=== PATIENT | male | born 1975 | race Caucasian/White ===

== ENCOUNTER 2016-11-13 11:23 | Emergency (ER) | payer OTHER ==
[~2016-11-13] VITALS: Ht 177.8 cm; Wt 95.0 kg
[~2016-11-13 11:23] MED LIST: ATV/1 PO; BENZ-89 PO; BSP/10 PO; CYM/30 PO; FRCT/ PO; GABA-113 PO; PALI1TAB3 PO; PROC1TAB5 PO; TIZA6CAP PO; TOPI200T14 PO; WARF5TAB90 PO
[2016-11-13 11:30] VITALS: TEMP 36.7; Ht 177.8 cm; Wt 95.0 kg
[2016-11-13] MEDS ORDERED: MoRPHine SULFATE 4 MG/ML 1 ML CARP\\VIAL IV STA (11:46)
[2016-11-13 12:22] LABS: BASO % 0.5 %; BASO ABS # 0.03 K/uL (0-0.2); COMPLETE YES; EOS % 2.8 %; HEMATOCRIT 41.2 % (42-52); IG% 0.3 %; LYMPH % 32.2 %; LYMPH ABS # 1.95 K/uL (1.2-3.4); MEAN CORPUSCULAR HEMOGLOBIN 30.1 pg (25-34); MEAN CORPUSCULAR HGB CONC 34.2 g/dl (32-36); MEAN PLATELET VOLUME 9.2 fL (7.4-10.4); MONO % 13.1 %; NEUT % 51.1 %; PLATELET COUNT 256 K/uL (130-400); RED BLOOD COUNT 4.68 M/uL (4.7-6.1); URINE APPEARANCE CLEAR (CLEAR); URINE BILIRUBIN NEG (NEG); URINE COLOR YELLOW; URINE NITRITE NEG (NEG); UROBILINOGEN NEG (NEG); WHITE BLOOD COUNT 6.05 K/uL (4.8-10.8); ZZUR CULT IF INDIC CLEAN CATCH NO
[2016-11-13 12:27] LABS: INR 3.2 (0.9-1.1); PROTHROMBIN TIME (PATIENT) 36.3 SECONDS (9.0-12.0)
[2016-11-13 12:37] LABS: MANUAL MICROSCOPIC REQUIRED? NO; REVIEW REQ? YES
[2016-11-13 12:45] LABS: ALT/SGPT 23 U/L (12-78); AST/SGOT 35 U/L (15-37); BLOOD UREA NITROGEN 12 mg/dl (7-18); BUN/CREATININE RATIO 10.6 (10-20); CARBON DIOXIDE 24 mmol/L (21-32); CHLORIDE 110 mmol/L (98-107); GLUCOSE 97 mg/dl (70-99); POTASSIUM 3.9 mmol/L (3.5-5.1); SODIUM 143 mmol/L (136-145)
[2016-11-13 12:48] LABS: ALKALINE PHOSPHATASE 67 U/L (45-117)
[2016-11-13 12:51] LABS: URINE EPITHELIAL CELL AUTO 0-5 /lpf (0-5)
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
[2016-11-13] MEDS ORDERED: ACETAMINOPHEN 500 MG TAB PO ONE (14:21)
[2016-11-13 14:25] VITALS: BP 127/84; PULSE 65; O2SAT 99
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
[2017-06-16] MEDS ORDERED: GABA600T PO (14:51)
[2017-06-16] MEDS ORDERED: TIZA4CAP PO (14:51)
[2017-06-16] MEDS ORDERED: ZOLP5TAB PO (14:51)
[2017-06-16] MEDS ORDERED: PALI6TAB PO (14:51)
[2017-06-16] MEDS ORDERED: MAGN400T6 PO (14:51)
[2017-06-16] MEDS ORDERED: B-COTAB53 PO (14:51)
[2017-06-27] MEDS ORDERED: ENOX80IN SQ (13:43)
== END 2016-11-13 14:34 | disposition home or self-care (01) ==
LOC: EDBD 11:23 → C.EDC 11:24
DX: S13.9XXA Sprain of joints and ligaments of unspecified parts of neck, initial encounter (principal); M54.5 Low back pain; V43.52XA Car driver injured in collision with other type car in traffic accident, initial encounter; Z79.01 Long term (current) use of anticoagulants; Z79.899 Other long term (current) drug therapy; F17.210 Nicotine dependence, cigarettes, uncomplicated

== ENCOUNTER 2016-11-16 09:40 | Emergency (ER) | payer OTHER ==
[~2016-11-16] VITALS: Ht 177.8 cm; Wt 96.7 kg
[~2016-11-16 09:40] MED LIST changes: -BENZ-89 PO; +CGN1 PO
[2016-11-16 09:44] VITALS: Ht 177.8 cm; Wt 96.7 kg
[2016-11-16] MEDS ORDERED: PRED20TA PO (10:23)
[2016-11-16] MEDS ORDERED: HYDR-5688 PO (10:23)
[2016-11-16 10:34] VITALS: BP 138/73; PULSE 71; TEMP 36.9; O2SAT 98
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
[2017-06-16] MEDS ORDERED: TIZA4CAP PO (14:51)
[2017-06-16] MEDS ORDERED: ZOLP5TAB PO (14:51)
[2017-06-16] MEDS ORDERED: B-COTAB53 PO (14:51)
[2017-06-16] MEDS ORDERED: MAGN400T6 PO (14:51)
[2017-06-16] MEDS ORDERED: GABA600T PO (14:51)
[2017-06-16] MEDS ORDERED: PALI6TAB PO (14:51)
[2017-06-27] MEDS ORDERED: ENOX80IN SQ (13:43)
== END 2016-11-16 10:35 | disposition home or self-care (01) ==
LOC: C.EDB 09:41 → C.EDA 10:35
DX: M54.2 Cervicalgia (principal); V49.40XA Driver injured in collision with unspecified motor vehicles in traffic accident, initial encounter; Y93.89 Activity, other specified; Y99.8 Other external cause status; Y92.488 Other paved roadways as the place of occurrence of the external cause; F17.200 Nicotine dependence, unspecified, uncomplicated; Z95.2 Presence of prosthetic heart valve; Z79.01 Long term (current) use of anticoagulants; Z79.52 Long term (current) use of systemic steroids

== ENCOUNTER 2017-05-13 00:18 | Emergency (ER) | payer OTHER ==
[~2017-05-13] VITALS: Ht 177.8 cm; Wt 99.4 kg
[~2017-05-13 00:18] MED LIST changes: +HYDR-5688 PO; +PRED20TA PO
[2017-05-13 00:24] VITALS: TEMP 36.7; Ht 177.8 cm; Wt 99.4 kg
[2017-05-13] MEDS ORDERED: LIDO/EPINEPHRINE/SOD BICARB 20 ML VIAL INFIL ONE (00:45)
[2017-05-13 02:42] VITALS: BP 129/87; PULSE 55; O2SAT 99
--- NOTE | 2017-05-14 02:01 | EMERGENCY ROOM VISIT NOTE ---
History First contact with patient: 00:28 Chief Complaint: LACERATION/CUT (SUT/DERMABOND) Stated Complaint: CUT TONGUE ON BROKEN TOOTH,WON'T STOP BLEEDING Nursing Triage Summary: Broke right upper molar today, stuck tongue into socket and cut tongue. On coumadin, cannot control bleeding. Happened at 1500. Reports dizziness. History of Present Illness The patient is a 42 year old male who presents to the Emergency Room with complaints of bleeding from his tongue began approximately 8 hours ago. The patient states that he has a broken tooth, and cut the underside of his tongue on one of the fragments. The patient is on Coumadin for his heart. He states his last INR was yesterday and was 2.8. The patient has been applying cold compresses to his tongue, but this has not significantly improved his symptoms. The patient does not have other complaints. He rates his discomfort a 1/10. Review of Systems More than 10 systems were reviewed and otherwise negative with the exception of history of present illness. Past Medical/Surgical History Medical Problems: (1) Aortic aneurysm Surgical Problems: (1) H/O aortic aneurysm repair (2) Heart valve replaced Family History Patient reports no known family medical history. Social History Smoking Status: Current Every Day Smoker Alcohol Use: occasionally Drug Use: none Marital Status: in relationship Housing Status: lives with family Occupation Status: unemployed Current/Historical Medications Scheduled Acetamin/Butalbital/Caffeine (Fioricet), 1 TAB PO UD Benztropine Mesylate (Cogentin), 1 MG PO BID Buspirone HCl (Buspirone HCl), 10 MG PO TID Duloxetine Hcl (Cymbalta), 30 MG PO BID Gabapentin (Neurontin), 600 MG PO QID Lorazepam (Ativan), 1 MG PO TID Paliperidone (Paliperidone ER), 12 MG PO DAILY Prochlorperazine Maleate (Compazine), 10 MG PO Q4H Tizanidine (Zanaflex), 6 MG PO BID Topiramate (Topamax), 200 MG PO BID Warfarin Sodium (Coumadin), 15 MG PO DAILY Allergies Coded Allergies: NSAIDs (Verified Allergy, Unknown, UNNKNOWN, 05/13/17) Propranolol (Verified Adverse Reaction, Intermediate, Bradycardia, 05/13/17) Physical Exam Vital Signs Date Time Temp Pulse Resp B/P (MAP) Pulse Ox O2 Delivery O2 Flow Rate FiO2 05/13/17 02:42 55 18 129/87 99 05/13/17 01:37 54 18 134/85 98 05/13/17 00:24 36.7 62 18 154/92 99 Room Air Pain Rating (0-10): 7.0 Physical Exam VITALS: Vitals are noted on the nurse's note and reviewed by myself. Vital signs stable. GENERAL: Well-developed, well-nourished, white male, who is in no acute distress and resting comfortably. Patient is cooperative with the examination. MOUTH: Mucous membranes moist. On the right underside of the tongue is a very small 1 mm laceration. Unfortunately this does appear to cut through a very small vein causing slow and persistent bleeding. Medical Decision & Procedures ED Course Physical exam and history were performed. Nursing notes and EMR were reviewed. Patient appears to have a very small laceration to his tongue that is bleeding secondary to his anticoagulation use. I discussed options of care with the patient, who has not had relief with pressure dressings at home. I elected to use 1% buffered lidocaine with epinephrine, and injected the area of the small cut in a sterile fashion. Upon doing this the patient was treated with a cool compress. On reevaluation this intervention did resolve the patient's bleeding without a need for suture repair. The patient was asked to hold his Coumadin tonight and restart it tomorrow. He was otherwise asked to follow with his primary care physician with any ongoing or persistent symptoms. He rated his discomfort a 0/10 at the time of departure. The chart was completed utilizing [employer] Speech Voice Recognition Software. Grammatical errors, random word insertions, pronoun errors, and incomplete sentences are an occasional consequence of this system due to software limitations, ambient noise, and hardware issues. Any formal questions or concerns about the content, text, or information contained within the body of this dictation should be directly addressed to the provider for clarification. . Medical Decision Differential diagnosis includes, but is not limited to: Laceration, abrasion, anticoagulation use, and others Impression Primary Impression: Laceration of tongue Departure Information Dispostion Home / Self-Care Condition GOOD Forms HOME CARE DOCUMENTATION FORM, IMPORTANT VISIT INFORMATION Patient Instructions My [facility] Additional Instructions You were seen and evaluated today on an emergency basis only. This is not a substitute for, or an effort to provide, complete comprehensive medical care. It is not possible to recognize and treat all injuries or illnesses in a single emergency department visit. For this reason it is recommended that you followup with your primary care physician for any persisting symptoms. You are welcome to return to the emergency department anytime with new, worsening, or concerning symptoms.
[2017-06-16] MEDS ORDERED: TIZA4CAP PO (14:51)
[2017-06-16] MEDS ORDERED: PALI6TAB PO (14:51)
[2017-06-16] MEDS ORDERED: MAGN400T6 PO (14:51)
[2017-06-16] MEDS ORDERED: GABA600T PO (14:51)
[2017-06-16] MEDS ORDERED: ZOLP5TAB PO (14:51)
[2017-06-16] MEDS ORDERED: B-COTAB53 PO (14:51)
[2017-06-27] MEDS ORDERED: ENOX80IN SQ (13:43)
== END 2017-05-13 02:43 | disposition home or self-care (01) ==
LOC: C.EDB 00:21
DX: S01.512A Laceration without foreign body of oral cavity, initial encounter (principal); I71.9 Aortic aneurysm of unspecified site, without rupture; Z79.01 Long term (current) use of anticoagulants; Z79.899 Other long term (current) drug therapy; F17.200 Nicotine dependence, unspecified, uncomplicated; X58.XXXA Exposure to other specified factors, initial encounter

== ENCOUNTER → 2017-05-26 | Outpatient (CLI) | payer OTHER ==
[~2017-05-26] MED LIST changes: +B-COTAB53 PO; +ENOX80IN SQ; +GABA600T PO; -HYDR-5688 PO; +MAGN400T6 PO; +PALI6TAB PO; -PRED20TA PO; +TIZA4CAP PO; +ZOLP5TAB PO
[2017-05-26 15:53] LABS: MEAN CELL VOLUME 90.9 fL (80-100); MEAN CORPUSCULAR HEMOGLOBIN 29.9 pg (25-34); MEAN CORPUSCULAR HGB CONC 32.9 g/dl (32-36); MEAN PLATELET VOLUME 9.6 fL (7.4-10.4); PLATELET COUNT 279 K/uL (130-400); RED BLOOD COUNT 4.51 M/uL (4.7-6.1); WHITE BLOOD COUNT 8.12 K/uL (4.8-10.8)
== END | disposition home or self-care (01) ==
LOC: C.LAB1850 14:31
PROVIDERS: ATTEND Internal Medicine
DX: K62.5 Hemorrhage of anus and rectum (principal)

== ENCOUNTER → 2017-06-27 | Day surgery (SDC) | payer OTHER ==
[2017-06-16 14:57] VITALS: Ht 177.8 cm; Wt 100.0 kg
[~2017-06-27] VITALS: Ht 177.8 cm; Wt 100.0 kg
[~2017-06-27] MED LIST changes: -BSP/10 PO; -CGN1 PO; -FRCT/ PO; -GABA-113 PO; +LIDOCAINE HCL 2% 2 ML VIAL (20MG/ML) ONE; -PALI1TAB3 PO; -PROC1TAB5 PO; +PROPOFOL IV EMULSION 10 MG/ML 20 ML VIAL IV ONE; -TIZA6CAP PO
[2017-06-27 13:02] VITALS: TEMP 36.6
--- NOTE | 2017-06-27 13:36 | Endo History and Physical ---
History & Physical Date of Service: Jun 27, 2017. Chief Complaint: rectal bleeding Referring Physician: Dr. Yeny Henderson History of Present Illness For colonoscopy Past Medical History Seizure Disorder Past Surgical History Hx Cardiac Surgery: Yes (HEART CATH, AORTIC ANEURYSM REPAIR WITH AORTIC VALVE REPLACEMENT) Hx Internal Defibrillator: No Hx Pacemaker: No Hx Abdominal Surgery: No Hx of Implantable Prosthesis: No Hx Post-Op Nausea and Vomiting: No Hx Cancer Surgery: No Hx Thoracic Surgery: No Hx Orthopedic: No Hx Urinary Tract Surgery: No Family History Colon CA Social History Smoking Status: Current Every Day Smoker Hx Substance Use: No Hx Alcohol Use: Yes (QUIT 2011) Allergies Coded Allergies: NSAIDs (Verified Allergy, Unknown, CANNOT TAKE WHILE ON COUMADIN, 06/16/17) Propranolol (Verified Adverse Reaction, Intermediate, Bradycardia, 06/16/17) Current Medications Reported Home Medications Medications Dose Route/Sig Max Daily Dose Days Date Category B Complex (B-Complex W/ Folic Acid) 1 Tab Tab 1 Tab PO QAM 06/16/17 Reported Mag-Ox (Magnesium Oxide) 400 Mg Tab 400 Mg PO QAM 06/16/17 Reported Zanaflex (Tizanidine HCl) 4 Mg Cap 1-2 Tabs PO Q6-8H PRN 06/16/17 Reported Invega (Paliperidone) 6 Mg Ertab 6 Mg PO QAM 06/16/17 Reported Ambien (Zolpidem Tartrate) 5 Mg Tab 5 Mg PO HS PRN 06/16/17 Reported Neurontin (Gabapentin) 600 Mg Tab 2 Tabs PO TID 06/16/17 Reported Cymbalta (Duloxetine Hcl) 30 Mg Cap 30 Mg PO BID 10/19/16 Reported Ativan (Lorazepam) 1 Mg Tab 1 Mg PO TID 10/19/16 Reported Coumadin (Warfarin Sodium) 5 Mg Tab 15 Mg PO QAM 05/18/16 Reported Topamax (Topiramate) 200 Mg Tab 200 Mg PO BID 01/17/16 Reported Vital Signs Weight (Kilograms): 100 Height (Feet): 5 Height (Inches): 10 Date Time Temp Pulse Resp B/P (MAP) Pulse Ox O2 Delivery O2 Flow Rate FiO2 06/27/17 13:02 36.6 61 20 141/78 (99) 97 Room Air Physical Exam General Appearance: WD/WN, + pertinent finding (multiple tattoos) Respiratory/Chest: Respiratory effort: no dyspnea Cardiovascular: Heart Auscultation: RRR Abdomen: Inspection & Palpation: soft Assessment and Plan Rectal bleeding for colonoscopy
--- NOTE | 2017-06-27 13:55 | Discharge Instructions ---
Endoscopy Patient Instructions Date / Procedure(s) Performed Jun 27, 2017. Colonoscopy Allergy Information Coded Allergies: NSAIDs (Verified Allergy, Unknown, CANNOT TAKE WHILE ON COUMADIN, 06/16/17) Propranolol (Verified Adverse Reaction, Intermediate, Bradycardia, 06/16/17) Discharge Date / Findings Jun 27, 2017. Diverticulosis, hemorrhoids Medication Instructions Stopped Medication(s): stopped Coumadin 06/24 0430 Restart Stopped Medication(s): resume meds Reported Home Medications Medications Dose Route/Sig Max Daily Dose Days Date Category B Complex (B-Complex W/ Folic Acid) 1 Tab Tab 1 Tab PO QAM 06/16/17 Reported Mag-Ox (Magnesium Oxide) 400 Mg Tab 400 Mg PO QAM 06/16/17 Reported Zanaflex (Tizanidine HCl) 4 Mg Cap 1-2 Tabs PO Q6-8H PRN 06/16/17 Reported Invega (Paliperidone) 6 Mg Ertab 6 Mg PO QAM 06/16/17 Reported Ambien (Zolpidem Tartrate) 5 Mg Tab 5 Mg PO HS PRN 06/16/17 Reported Neurontin (Gabapentin) 600 Mg Tab 2 Tabs PO TID 06/16/17 Reported Cymbalta (Duloxetine Hcl) 30 Mg Cap 30 Mg PO BID 10/19/16 Reported Ativan (Lorazepam) 1 Mg Tab 1 Mg PO TID 10/19/16 Reported Coumadin (Warfarin Sodium) 5 Mg Tab 15 Mg PO QAM 05/18/16 Reported Topamax (Topiramate) 200 Mg Tab 200 Mg PO BID 01/17/16 Reported Provider Instructions Activity Restrictions - No exercising or heavy lifting for 24 hours. - Do not drink alcohol the day of the procedure. - Do not drive a car or operate machinery until the day after the procedure. - Do not make any important decisions or sign important papers in 24 hours after the procedure. Following Day: - Return to full activity which may include returning to work/school. Diet Start your diet with liquids and light foods (jello, soup, juice, toast). Then eat your usual diet if not nauseated. Treatment For Common After Affects For mild abdominal pain, bloating, or excessive gas: - Rest - Eat lightly - Lie on right side Follow-Up Information Follow-up with Dr. Yeny Henderson as scheduled Anesthesia Information What You Should Know You have had a procedure that required some medicine to reduce anxiety and discomfort. This treatment is called moderate sedation. After receiving the treatment, you may be sleepy, but you will be able to breathe on your own. The effects of the treatment may last for several hours. Follow these instructions along with Activity/Diet recommendations noted above: * Do NOT do anything where dizziness or clumsiness would be dangerous. * Rest quietly at home today, then you can be up and about tomorrow. * Have a responsible person stay with you the rest of today. * You may have had an I.V. today. If so, you may take the dressing off later today. Recommendations Call your doctor if: * Trouble breathing * Continuous vomiting for more than 24 hours * Temperature above 101 degrees * Severe abdominal pain or bloating * Pain not relieved by pain medicine ordered * There is increased drainage or redness from any incision * A large amount of rectal bleeding greater than 2-3 tablespoons. (If you had a polyp/s removed or have hemorrhoids, a small amount of blood - from the rectum is to be expected.) * You have any unanswered questions or concerns. IN THE EVENT OF A SERIOUS EMERGENCY, GO TO THE NEAREST EMERGENCY ROOM Your discharge instructions were prepared by provider Mike Hernandez. Patient Instructions Signature Page Kirill Salmeron Patient (or Guardian) Signature/Date: I have read and understand the instructions given to me by my caregivers. Caregiver/RN/Doctor Signature/Date: The above-named patient and/or guardian has received patient instructions on this date. + Original Patient Signature Page (only) stays with chart. Please make copy for patient.
--- NOTE | 2017-06-27 13:58 | GI REPORT ---
Procedure Date: 06/27/2017 1:39 PM Procedure: Colonoscopy Indications: Rectal bleeding Medicines: Propofol total dose 420 mg IV, Lidocaine 40 mg IV Complications: No immediate complications. Estimated Blood Loss: Estimated blood loss: none. Procedure: Pre-Anesthesia Assessment: - Prior to the procedure, a History and Physical was performed, and patient medications, allergies and sensitivities were reviewed. The patient's tolerance of previous anesthesia was reviewed. - The risks and benefits of the procedure and the sedation options and risks were discussed with the patient. All questions were answered and informed consent was obtained. After I obtained informed consent, the scope was passed under direct vision. Throughout the procedure, the patient's blood pressure, pulse, and oxygen saturations were monitored continuously. The scope was introduced through the anus and advanced to the terminal ileum. The colonoscopy was performed without difficulty. The patient tolerated the procedure well. The quality of the bowel preparation was good. Findings: The terminal ileum appeared normal. A few diverticula were found in the sigmoid colon and in the ascending colon. Non-bleeding internal hemorrhoids were found during retroflexion. The hemorrhoids were moderate. Impression: - The examined portion of the ileum was normal. - Diverticulosis in the sigmoid colon and in the ascending colon. - Non-bleeding internal hemorrhoids. - No specimens collected. Recommendation: - Discharge patient to home (ambulatory). - Continue present medications. - Return to primary care physician PRN. Mike Hernandez M.D. Mike Hernandez MD 06/27/2017 1:58:26 PM This report has been signed electronically. Note Initiated On: 06/27/2017 1:39 PM I attest to the content of the Intraoperative Record and orders documented therein, exceptions below
--- NOTE | 2017-06-27 14:16 | Anesthesiology Progress Note ---
Anesthesia Post Op Note Date & Time Jun 27, 2017 at 14:16 Vital Signs Pain Intensity: 0 Vital Signs Past 12 Hours Date Time Temp Pulse Resp B/P (MAP) Pulse Ox O2 Delivery O2 Flow Rate FiO2 06/27/17 13:57 65 16 100/59 (73) 96 Room Air 06/27/17 13:02 36.6 61 20 141/78 (99) 97 Room Air Notes Mental Status: alert / awake / arousable, participated in evaluation Pt Amnestic to Procedure: Yes Nausea / Vomiting: adequately controlled Pain: adequately controlled Airway Patency, RR, SpO2: stable & adequate BP & HR: stable & adequate Hydration State: stable & adequate Anesthetic Complications: no major complications apparent
[2017-06-27 14:32] VITALS: BP 144/90; PULSE 51; O2SAT 100
== END | disposition home or self-care (01) ==
LOC: C.GI 12:32
PROVIDERS: ATTEND Internal Medicine Gastroenterology
DX: K62.5 Hemorrhage of anus and rectum (principal); K57.90 Diverticulosis of intestine, part unspecified, without perforation or abscess without bleeding; K64.8 Other hemorrhoids; Z80.0 Family history of malignant neoplasm of digestive organs; F17.210 Nicotine dependence, cigarettes, uncomplicated; G40.909 Epilepsy, unspecified, not intractable, without status epilepticus

== ENCOUNTER 2017-09-17 11:33 | Inpatient (IN) | payer OTHER ==
[~2017-09-17] VITALS: Ht 175.3 cm; Wt 96.3 kg
[~2017-09-17 11:33] MED LIST changes: -LIDOCAINE HCL 2% 2 ML VIAL (20MG/ML) ONE; -PROPOFOL IV EMULSION 10 MG/ML 20 ML VIAL IV ONE
[2017-09-17] MEDS ORDERED: MoRPHine SULFATE 4 MG/ML 1 ML CARP\\VIAL IV STA (11:48)
[2017-09-17] MEDS ORDERED: OPTIRAY 320 IV PRN (12:00)
[2017-09-17] MEDS ORDERED: LACTATED RINGER'S 1000ML 1,000 ML IV ONE (12:00)
[2017-09-17 12:37] LABS: ISTAT CREATININE 1.4 mg/dl (0.6-1.3); ISTAT HEMOGLOBIN 14.6 g/dl (14.0-18.0); ISTAT IONIZED CALCIUM 1.13 mmol/l (1.12-1.32)
[2017-09-17 12:47] LABS: BASO % 0.2 %; BASO ABS # 0.03 K/uL (0-0.2); COMPLETE YES; EOS % 4.8 %; IG% 0.1 %; LYMPH % 10.4 %; LYMPH ABS # 1.41 K/uL (1.2-3.4); MEAN CELL VOLUME 90.7 fL (80-100); MEAN CORPUSCULAR HEMOGLOBIN 29.6 pg (25-34); MEAN CORPUSCULAR HGB CONC 32.7 g/dl (32-36); MONO % 10.7 %; NEUT % 73.8 %; PLATELET COUNT 187 K/uL (130-400); RED BLOOD COUNT 4.52 M/uL (4.7-6.1); WHITE BLOOD COUNT 13.51 K/uL (4.8-10.8)
[2017-09-17] MEDS ORDERED: CLON1TAB PO (12:48)
[2017-09-17] MEDS ORDERED: ESCI1TAB18 PO (12:48)
[2017-09-17] MEDS ORDERED: RTL20 PO (12:48)
[2017-09-17 12:55] LABS: BUN/CREATININE RATIO 8.6 (10-20); CALCIUM 8.4 mg/dl (8.5-10.1); CREATININE 1.35 mg/dl (0.60-1.40); POTASSIUM 3.7 mmol/L (3.5-5.1)
[2017-09-17 12:58] LABS: ALB/GLOB RATIO 0.9 (0.9-2)
[2017-09-17 13:03] LABS: INR 3.3 (0.9-1.1); PARTIAL THROMBOPLASTIN RATIO 2.2; PROTHROMBIN TIME (PATIENT) 37.3 SECONDS (9.0-12.0)
[2017-09-17] MEDS ORDERED: KRATOM PO (13:03)
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
[2017-09-17 13:40] LABS: URINE APPEARANCE CLEAR (CLEAR); URINE BILIRUBIN NEG (NEG); URINE COLOR YELLOW; URINE NITRITE NEG (NEG); URINE SPECIFIC GRAVITY 1.011 (1.000-1.030); UROBILINOGEN NEG (NEG); ZZUR CULT IF INDIC CLEAN CATCH NO
--- NOTE | 2017-09-17 13:47 | EMERGENCY ROOM VISIT NOTE ---
ED Visit Note First contact with patient: 11:40 I have personally seen and evaluated the patient with the PA. I agree with the diagnosis and management decisions and have been personally involved in the case. Please see Juan Alberto Meneses PA-C's notes for further details of the history, physical and visit.
[2017-09-17 13:48] LABS: MANUAL MICROSCOPIC REQUIRED? NO; REVIEW REQ? NO
--- NOTE | 2017-09-17 14:42 | EMERGENCY ROOM VISIT NOTE ---
History First contact with patient: 11:40 Chief Complaint: ABDOMINAL PAIN Stated Complaint: ABD. PAIN Nursing Triage Summary: pt reports 1 day ago fell onto back and a pipe landed across abdomen . to day increased pain in abdomen . reports on coumadin History of Present Illness The patient is a 42 year old male who presents to the Emergency Room with complaints of abdominal contusion injury that occurred approximately 24 hours ago. 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 He was wearing some protective gear at the time , which may have blunted the injury. The patient did have some immediate pain that resolved shortly thereafter. The patient is on Coumadin for a history of mechanical heart valve, and became worried as his pain significantly worsened about 10 hours ago, roughly 1 am. He is nauseated without vomiting. He did take 2 doses of Tylenol without significant improvement of symptoms at home. He rates his current discomfort a 7/10. Review of Systems More than 10 systems were reviewed and otherwise negative with the exception of history of present illness. Past Medical/Surgical History Medical Problems: (1) Acute appendicitis (2) Aortic aneurysm (3) RLQ abdominal pain Surgical Problems: (1) H/O aortic aneurysm repair (2) Heart valve replaced Family History Patient reports no known family medical history. Social History Smoking Status: Current Every Day Smoker Alcohol Use: occasionally Drug Use: none Marital Status: in relationship Housing Status: lives with family Occupation Status: unemployed Current/Historical Medications Scheduled B-Complex W/ Folic Acid (B Complex), 1 TAB PO QAM Clonazepam (Klonopin), 1 TAB PO TID Escitalopram Oxalate (Lexapro), 1 TAB PO QAM Gabapentin (Neurontin), 2 TABS PO TID Methylphenidate HCl (Ritalin), 1 TAB PO BID Paliperidone (Invega), 6 MG PO QAM Topiramate (Topamax), 200 MG PO BID Warfarin Sodium (Coumadin), 15 MG PO QAM [Kratom], 3 GM PO UD Scheduled PRN Tizanidine (Zanaflex), 1-2 TABS PO Q6-8H PRN for Migraine Zolpidem Tartrate (Ambien), 5 MG PO HS PRN for Sleep Allergies Coded Allergies: NSAIDs (Verified Allergy, Unknown, CANNOT TAKE WHILE ON COUMADIN, 09/17/17) Propranolol (Verified Adverse Reaction, Intermediate, Bradycardia, 09/17/17 ) Physical Exam Vital Signs Date Time Temp Pulse Resp B/P (MAP) Pulse Ox O2 Delivery O2 Flow Rate FiO2 09/17/17 13:56 89 20 121/64 98 Room Air 09/17/17 11:36 36.4 84 20 139/77 100 Room Air Physical Exam VITALS: Vitals are noted on the nurse's note and reviewed by myself. Vital signs stable. GENERAL: Well-developed, well-nourished, white male who appears mildly uncomfortable on examination. He is cooperative. NECK: Supple without nuchal rigidity. No lymphadenopathy. No thyromegaly. Cervical spine is nontender. HEART: Regular rate and rhythm with systolic click LUNGS: Clear to auscultation bilaterally without wheezes, rales or rhonchi. No retractions or accessory muscle use. ABDOMEN: Positive normal bowel sounds x 4. No significant ecchymosis or edema. No signs of peritonitis Negative Bong. Tenderness appreciated in the suprapubic and right lower quadrant on palpation. No guarding. No CVA tenderness. MUSCULOSKELETAL: No muscle atrophy, erythema, or edema noted. Full range of motion without joint tenderness in all extremities. Medical Decision & Procedures ER Provider Diagnostic Interpretation: ANGIO ABD/PELVIS WITH CONTRAST CLINICAL HISTORY: 42 years-old Male presenting with trauma, on Coumadin, 130 pound object fell onto the patient's lower abdomen. TECHNIQUE: Multidetector CT angiography of the abdomen and pelvis was performed after the administration of intravenous contrast. 3-D volumetric and/or maximum intensity projection (MIP) images were subsequently reconstructed for review. IV contrast: 94 mL of Optiray 320. A dose lowering technique was used consistent with the principles of ALARA (as low as reasonably achievable). COMPARISON: None. CT DOSE (mGy.cm): The estimated cumulative dose is 905.93 mGy.cm. 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 Lung bases: Minimal dependent changes likely atelectasis. Mosaic attenuation could suggest small airways disease. Multichamber enlargement of the heart with prosthetic aortic valve noted. No pericardial or pleural effusion. Liver: Allowing for the phase of contrast, normal morphology. No focal lesion. Conventional hepatic arterial anatomy. Biliary: No gross biliary ductal dilatation allowing for the phase of contrast. Normal gallbladder. Pancreas: Mild parenchymal atrophy. Spleen: Normal allowing for the phase of contrast. Adrenal glands: Normal. Kidneys and ureters: Normal. No hydronephrosis. Bladder: Distended bladder. Pelvic organs: Prostate and seminal vesicles normal. Bowel: Moderate stool burden throughout normal caliber colon. Pericolonic infiltration in the right lower quadrant. Enlargement of the appendix with periappendiceal fat stranding. No bowel obstruction. Peritoneal cavity: No free fluid or intraperitoneal gas. Lymph nodes: No enlarged lymph nodes in the abdomen or pelvis. Vasculature: Aorta normal in course and caliber. Major branch vessels patent. Single bilateral main renal arteries. No evidence of active extravasation. Abdominal wall: No evidence of a contusion of the abdominal wall. Musculoskeletal: No acute osseous injury. Bilateral pars defects of L5. IMPRESSION: 1. No acute intra-abdominal injury. However, extensive periappendiceal fat stranding with dilatation of the appendix is highly concerning for acute appendicitis. No adjacent abscess or evidence of perforation. The report will be called/faxed according to standard departmental protocol. Laboratory Results 09/17/17 12:20 Red Blood Count 4.52, Mean Corpuscular Volume 90.7, Mean Corpuscular Hemoglobin 29.6, Mean Corpuscular Hemoglobin Concent 32.7, Mean Platelet Volume 10.0, Neutrophils (%) (Auto) 73.8, Lymphocytes (%) (Auto) 10.4, Monocytes (%) (Auto) 10.7, Eosinophils (%) (Auto) 4.8, Basophils (%) (Auto) 0.2, Neutrophils # (Auto ) 9.95, Lymphocytes # (Auto) 1.41, Monocytes # (Auto) 1.45, Eosinophils # (Auto ) 0.65, Basophils # (Auto) 0.03 09/17/17 12:20 Test 09/17/17 10:31 09/17/17 12:20 09/17/17 12:24 Urine Color YELLOW Urine Appearance CLEAR (CLEAR) Urine pH 7.0 (4.5-7.5) Urine Specific [place] 1.011 (1.000-1.030) Urine Protein NEG (NEG) Urine Glucose (UA) NEG (NEG) Urine Ketones NEG (NEG) Urine Occult Blood NEG (NEG) Urine Nitrite NEG (NEG) Urine Bilirubin NEG (NEG) Urine Urobilinogen NEG (NEG) Urine Leukocyte Esterase NEG (NEG) White Blood Count 13.51 K/uL (4.8-10.8) Red Blood Count 4.52 M/uL (4.7-6.1) Hemoglobin 13.4 g/dL (14.0-18.0) Hematocrit 41.0 % (42-52) Mean Corpuscular Volume 90.7 fL (80-100) Mean Corpuscular Hemoglobin 29.6 pg (25-34) Mean Corpuscular Hemoglobin Concent 32.7 g/dl (32-36) Platelet Count 187 K/uL (130-400) Mean Platelet Volume 10.0 fL (7.4-10.4) Neutrophils (%) (Auto) 73.8 % Lymphocytes (%) (Auto) 10.4 % Monocytes (%) (Auto) 10.7 % Eosinophils (%) (Auto) 4.8 % Basophils (%) (Auto) 0.2 % Neutrophils # (Auto) 9.95 K/uL (1.4-6.5) Lymphocytes # (Auto) 1.41 K/uL (1.2-3.4) Monocytes # (Auto) 1.45 K/uL (0.11-0.59) Eosinophils # (Auto) 0.65 K/uL (0-0.5) Basophils # (Auto) 0.03 K/uL (0-0.2) RDW Standard Deviation 45.1 fL (36.4-46.3) RDW Coefficient of Variation 13.6 % (11.5-14.5) Immature Granulocyte % (Auto) 0.1 % Immature Granulocyte # (Auto) 0.02 K/uL (0.00-0.02) Prothrombin Time 37.3 SECONDS (9.0-12.0) Prothromb Time International Ratio 3.3 (0.9-1.1) Activated Partial Thromboplast Time 57.2 SECONDS (21.0-31.0) Partial Thromboplastin Ratio 2.2 Est Creatinine Clear Calc Drug Dose 82.5 ml/min Estimated GFR () 75.0 Estimated GFR (Non- 64.8 BUN/Creatinine Ratio 8.6 (10-20) Calcium Level 8.4 mg/dl (8.5-10.1) Total Bilirubin 0.8 mg/dl (0.2-1) Aspartate Amino Transf (AST/SGOT) 14 U/L (15-37) Alanine Aminotransferase (ALT/SGPT) 10 U/L (12-78) Alkaline Phosphatase 68 U/L (45-117) Total Protein 6.8 gm/dl (6.4-8.2) Albumin 3.2 gm/dl (3.4-5.0) Globulin 3.6 gm/dl (2.5-4.0) Albumin/Globulin Ratio 0.9 (0.9-2) Lipase 80 U/L (73-393) Bedside Hemoglobin 14.6 g/dl (14.0-18.0) Bedside Hematocrit 43 % (42-52) Bedside Sodium 135 mEq/L (135-144) Bedside Potassium 3.7 mEq/L (3.3-5.0) Bedside Chloride 97 mEq/L (101-112) Bedside Total CO2 26 mEq/l (24-31) Anion Gap 18.0 mmol/L (16-25) Bedside Blood Urea Nitrogen 11 mg/dl (7-18) Bedside Creatinine 1.4 mg/dl (0.6-1.3) Bedside Glucose (other) 99 mg/dl (70-99) Bedside Ionized Calcium (Hernandez) 1.13 mmol/l (1.12-1.32) Medications Administered Medications (Trade) Dose Ordered Sig/Alondra Route Start Time Stop Time Status Last Admin Dose Admin Morphine Sulfate (MoRPHine SULFATE INJ) 4 mg NOW STAT IV 09/17/17 11:48 09/17/17 11:55 DC 09/17/17 12:44 4 MG Lactated Ringer's 1,000 ml @ 999 mls/hr Q1H1M ONCE IV 09/17/17 12:00 09/17/17 13:00 DC 09/17/17 12:40 999 MLS/HR ED Course Physical exam and history were performed. Nursing notes, EMR, and Medication List were personally reviewed. Patient appears to have suffered a contusion type injury to his lower abdomen about 24 hours ago. He has had worsening pain over the past 10 hours. He is tender in the right lower quadrant and is on Coumadin. IV access was established and labs were obtained. I-STAT and blood bank were obtained. The patient was medicated as above. CT scan with IV contrast was performed. The case was discussed with my attending physician, Dr. Lorenzo, who also independently evaluated the patient and remained closely involved in patient care and decision making. The patient's blood work is as above and was reviewed. He does have an elevated white blood cell count of 13,000. He does not have a gross anemia on i -STAT. His INR is 3.3. Other blood work is fairly unremarkable. His CT scan was with significant stranding and possible acute appendicitis. The case was discussed with the on-call Surgeon, Dr Chacon, who did evaluate the patient here in the emergency department. Dr Chacon discussed options of care with the patient, who elected for conservative management with antibiotics and monitoring. Dr. Chacon will make arrangements to admit the patient under her service. Of note, [facility] as they will likely be consulted medically for Coumadin reversal. Please see Dr Chacon's dictation for further patient course, plan, and disposition. The chart was completed utilizing [employer] Speech Voice Recognition Software. Grammatical errors, random word insertions, pronoun errors, and incomplete sentences are an occasional consequence of this system due to software limitations, ambient noise, and hardware issues. Any formal questions or concerns about the content, text, or information contained within the body of this dictation should be directly addressed to the provider for clarification. . Medical Decision Differential diagnosis: Etiologies such as appendicitis, contusion, trauma, diverticulitis, PUD, biliary pathology, UTI, pancreatitis, obstruction, mesenteric ischemia, aortic pathology, infections, inflammatory bowel disease, renal colic, as well as others were entertained. Impression Primary Impression: Right lower quadrant abdominal pain Departure Information Referrals Yeny Henderson M.D. (PCP) Patient Instructions My [facility]
[2017-09-17] MEDS ORDERED: MoRPHine SULFATE 4 MG/ML 1 ML CARP\\VIAL IV PRN ×2 (14:45→15:00)
[2017-09-17] MEDS ORDERED: MoRPHine SULFATE 2 MG/ML CARP IV PRN ×3 (14:45→15:00)
[2017-09-17] MEDS ORDERED: ONDANSETRON INJ 2 MG/ML 2 ML VIAL IV PRN (14:45)
--- NOTE | 2017-09-17 15:13 | History and Physical ---
History & Physical Date & Time of Service: Sep 17, 2017 at 14:49 Chief Complaint: Abd. Pain Primary Care Physician: Yeny Henderson M.D. History of Present Illness Kirill Salmeron is a 42 year old man with history of ascending aortic aneurysm repair with aortic valve replacement (mechanical valve, on anticoagulation) who presents to the ED with abdominal pain. 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 States he was wearing his welding jacket at the time, which may have blunted the force somewhat. He had pain at the site, but was able to get up and continue working. Later in the afternoon around 2:30pm, he began noticing RLQ pain which persisted overnight - becoming acutely worse around 1am. Yesterday he did not eat much due to low appetite, but states this morning he had some tuna which he tolerated without vomiting. This morning he took Tylenol and some herbal supplements without significant improvement in the pain. Endorsing mild nausea. Denies constipation or diarrhea, it has been a few days since last BM; denies melena / hematochezia. Subjective sweats and chills overnight. Denies headaches, dizziness, vision changes, chest pain, SOB, dysuria or urinary symptoms, pain / numbness / swelling / tingling. On exam in the ED, he is currently very sleepy with slurred speech; recently received pain medication, and states he is very tired due to not sleeping well last night. Currently only has mild pain without palpation. Tender to palpation in right lower quadrant to midline and around right flank - patient states this is the same area the pipe hit. No bruising is appreciated. No rebound / guarding. Patient has no history of abdominal operations. Past Medical/Surgical History Medical Problems: (1) Aortic aneurysm Status: Resolved Surgical Problems: (1) H/O aortic aneurysm repair Status: Chronic (2) Heart valve replaced Status: Chronic Family History Patient reports no known family medical history. Social History Smoking Status: Current Every Day Smoker Drug Use: none Marital Status: in relationship Occupational Status: unemployed Allergies Coded Allergies: NSAIDs (Verified Allergy, Unknown, CANNOT TAKE WHILE ON COUMADIN, 09/17/17) Propranolol (Verified Adverse Reaction, Intermediate, Bradycardia, 09/17/17 ) Home Medications Scheduled B-Complex W/ Folic Acid (B Complex), 1 TAB PO QAM Clonazepam (Klonopin), 1 TAB PO TID Escitalopram Oxalate (Lexapro), 1 TAB PO QAM Gabapentin (Neurontin), 2 TABS PO TID Methylphenidate HCl (Ritalin), 1 TAB PO BID Paliperidone (Invega), 6 MG PO QAM Topiramate (Topamax), 200 MG PO BID Warfarin Sodium (Coumadin), 15 MG PO QAM [Kratom], 3 GM PO UD Scheduled PRN Tizanidine (Zanaflex), 1-2 TABS PO Q6-8H PRN for Migraine Zolpidem Tartrate (Ambien), 5 MG PO HS PRN for Sleep Review of Systems Constitutional: + chills, + sweats Eyes: No worsening of vision Respiratory: No cough, No sputum, No wheezing, No shortness of breath Cardiovascular: No chest pain Abdomen: + pain, + nausea, No vomiting, No diarrhea, No constipation Genitourinary - Male: No hematuria, No dysuria, No urinary frequency, No urinary urgency Integumentary: No rash Physical Exam Vital Signs Date Time Temp Pulse Resp B/P (MAP) Pulse Ox O2 Delivery O2 Flow Rate FiO2 09/17/17 13:56 89 20 121/64 98 Room Air 09/17/17 11:36 36.4 84 20 139/77 100 Room Air General Appearance: WD/WN, no apparent distress Head: normocephalic Eyes: + pertinent finding (injected sclera) Neck: supple Respiratory/Chest: lungs clear, normal breath sounds, no respiratory distress Cardiovascular: regular rate, rhythm Abdomen/GI: soft (no rebond / guarding), + tenderness (tender to palpation in RLQ to midline and in right flank; left abdomen non tender to palpation) Extremities/Musculoskelatal: normal inspection Neurologic/Psych: oriented x 3, + pertinent finding (very sleepy, slurred speech) Skin: normal color, warm/dry, no rash Diagnostics Laboratory Results Results Past 24 Hours Test 09/17/17 10:31 09/17/17 12:20 09/17/17 12:24 Range/Units Urine Color YELLOW Urine Appearance CLEAR CLEAR Urine pH 7.0 4.5-7.5 Urine Specific [place] 1.011 1.000-1.030 Urine Protein NEG NEG Urine Glucose (UA) NEG NEG Urine Ketones NEG NEG Urine Occult Blood NEG NEG Urine Nitrite NEG NEG Urine Bilirubin NEG NEG Urine Urobilinogen NEG NEG Urine Leukocyte Esterase NEG NEG White Blood Count 13.51 4.8-10.8 K/uL Red Blood Count 4.52 4.7-6.1 M/uL Hemoglobin 13.4 14.0-18.0 g/dL Hematocrit 41.0 42-52 % Mean Corpuscular Volume 90.7 80-100 fL Mean Corpuscular Hemoglobin 29.6 25-34 pg Mean Corpuscular Hemoglobin Concent 32.7 32-36 g/dl Platelet Count 187 130-400 K/uL Mean Platelet Volume 10.0 7.4-10.4 fL Neutrophils (%) (Auto) 73.8 % Lymphocytes (%) (Auto) 10.4 % Monocytes (%) (Auto) 10.7 % Eosinophils (%) (Auto) 4.8 % Basophils (%) (Auto) 0.2 % Neutrophils # (Auto) 9.95 1.4-6.5 K/uL Lymphocytes # (Auto) 1.41 1.2-3.4 K/uL Monocytes # (Auto) 1.45 0.11-0.59 K/uL Eosinophils # (Auto) 0.65 0-0.5 K/uL Basophils # (Auto) 0.03 0-0.2 K/uL RDW Standard Deviation 45.1 36.4-46.3 fL RDW Coefficient of Variation 13.6 11.5-14.5 % Immature Granulocyte % (Auto) 0.1 % Immature Granulocyte # (Auto) 0.02 0.00-0.02 K/uL Prothrombin Time 37.3 9.0-12.0 SECONDS Prothromb Time International Ratio 3.3 0.9-1.1 Activated Partial Thromboplast Time 57.2 21.0-31.0 SECONDS Partial Thromboplastin Ratio 2.2 Sodium Level 133 136-145 mmol/L Potassium Level 3.7 3.5-5.1 mmol/L Chloride Level 101 98-107 mmol/L Carbon Dioxide Level 27 21-32 mmol/L Anion Gap 6.0 18.0 16-25 mmol/L Blood Urea Nitrogen 12 7-18 mg/dl Creatinine 1.35 0.60-1.40 mg/dl Est Creatinine Clear Calc Drug Dose 82.5 ml/min Estimated GFR () 75.0 Estimated GFR (Non- 64.8 BUN/Creatinine Ratio 8.6 10-20 Random Glucose 98 70-99 mg/dl Calcium Level 8.4 8.5-10.1 mg/dl Total Bilirubin 0.8 0.2-1 mg/dl Aspartate Amino Transf (AST/SGOT) 14 15-37 U/L Alanine Aminotransferase (ALT/SGPT) 10 12-78 U/L Alkaline Phosphatase 68 45-117 U/L Total Protein 6.8 6.4-8.2 gm/dl Albumin 3.2 3.4-5.0 gm/dl Globulin 3.6 2.5-4.0 gm/dl Albumin/Globulin Ratio 0.9 0.9-2 Lipase 80 73-393 U/L Bedside Hemoglobin 14.6 14.0-18.0 g/dl Bedside Hematocrit 43 42-52 % Bedside Sodium 135 135-144 mEq/L Bedside Potassium 3.7 3.3-5.0 mEq/L Bedside Chloride 97 101-112 mEq/L Bedside Total CO2 26 24-31 mEq/l Bedside Blood Urea Nitrogen 11 7-18 mg/dl Bedside Creatinine 1.4 0.6-1.3 mg/dl Bedside Glucose (other) 99 70-99 mg/dl Bedside Ionized Calcium (Hernandez) 1.13 1.12-1.32 mmol/l Diagnostic Radiology 09/17/17 CT Abd / Pelvis with IV contrast (no PO): IMPRESSION: 1. No acute intra-abdominal injury. However, extensive periappendiceal fat stranding with dilatation of the appendix is highly concerning for acute appendicitis. No adjacent abscess or evidence of perforation. Impression Assessment and Plan Kirill Salmeron is a 42 year old man with history of ascending aortic aneurysm repair with mechanical aortic valve placement (on coumadin) who presents with RLQ pain s/p blunt trauma, CT scan concerning for possible early appendicitis. He is afebrile, vitals are stable and normal on room air. He has a leukocytosis to 13.5 and INR of 3.3 - otherwise labs within normal limits. Has abdominal tenderness in entire right abdomen and around flank (same distribution pipe struck), but no bruising or signs of external trauma. No tenderness in left abdomen, no rebound / guarding, he is non distended. -Admit to Med/Surg, Surgical service -NPO for now, IVF hydration -Pain control and antiemetics as needed -IV Antibiotics - cipro / flagyl -Medicine consultation requested for assistance with management of medical comorbidities and reversal of anticoagulation -SCDs -May need appendectomy at some point, but will need Coumadin reversal anyway. Will trend labs and vitals closely overnight tonight, re-evaluate physical exam / labs / vitals in AM. Cristy Chacon MD 09/17/17 Level of Care Med/Surg Resuscitation Status FULL RESUSCITATION VTE Prophylaxis VTE Risk Assessment Done? Y/N: Yes Risk Level: Moderate Given or contraindicated: SCD's
[2017-09-17 16:15] VITALS: BP 124/74; PULSE 91; TEMP 37.6; O2SAT 100
[2017-09-17 16:44] VITALS: BP 150/80; PULSE 62; TEMP 36.4; O2SAT 98
[2017-09-17 17:15] VITALS: BP 128/80; PULSE 64; TEMP 36.4; O2SAT 95
[2017-09-17] MEDS ORDERED: PHYTONADIONE 5 MG TAB PO STA (17:21)
--- NOTE | 2017-09-17 17:22 | Medical Consult ---
Consultation Date of Consultation: Sep 17, 2017. Attending Physician: Cristy Chacon M.D. History of Present Illness Kirill Salmeron is a 42 year old man with history of ascending aortic aneurysm repair with aortic valve replacement (mechanical valve, on anticoagulation) who presents to the ED with abdominal pain. 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 Throughout the course of the past 24 hours, patient has been worsening which prompted him to go to the hospital. Patient was admitted under surgical service for trauma and possible appendicitis from CT scan images. Patient was consulted for reversal of his INR. Px currently has moderate abdominal pain, in RLQ, non radiating accompanied by nausea. Px denies headaches, dizziness, SOB, urinary symptoms. Past Medical/Surgical History Medical Problems: (1) Abrasion Status: Acute (2) Altered mental status Status: Acute (3) CHI (closed head injury) Status: Acute (4) Closed head injury with brief loss of consciousness Status: Acute (5) Laceration of tongue Status: Acute (6) Migraine Status: Acute (7) Right lower quadrant abdominal pain Status: Acute Family History Patient reports no known family medical history. Social History Smoking Status: Current Every Day Smoker Drug Use: none Marital Status: in relationship Housing Status: lives with family Occupation Status: unemployed Allergies Coded Allergies: NSAIDs (Verified Allergy, Unknown, CANNOT TAKE WHILE ON COUMADIN, 09/17/17) Propranolol (Verified Adverse Reaction, Intermediate, Bradycardia, 09/17/17 ) Current Inpatient Medications Current Inpatient Medications Medications (Trade) Dose Ordered Sig/Alondra Route Start Time Stop Time Status Last Admin Dose Admin Ioversol (Optiray 320) 125 ml UD PRN IV 09/17/17 12:00 09/21/17 11:59 Sodium Chloride 1,000 ml @ 125 mls/hr Q8H IV 09/17/17 17:00 10/17/17 14:44 Ondansetron HCl (Zofran Inj) 4 mg Q4H PRN IV 09/17/17 14:45 10/17/17 14:44 Ciprofloxacin/ Dextrose 400 mg/ Prmx 200 ml @ 100 mls/hr Q12H IV 09/17/17 18:00 09/27/17 14:44 Metronidazole 500 mg/Prmx 100 ml @ 100 mls/hr Q8H IV 09/17/17 17:00 09/27/17 14:44 Morphine Sulfate (MoRPHine SULFATE INJ) 1 mg Q1HWA PRN IV 09/17/17 15:00 10/01/17 14:44 Morphine Sulfate (MoRPHine SULFATE INJ) 2 mg Q1HWA PRN IV 09/17/17 15:00 10/01/17 14:44 Morphine Sulfate (MoRPHine SULFATE INJ) 4 mg Q1HWA PRN IV 09/17/17 15:00 10/01/17 14:44 Review of Systems Constitutional: No fever, No chills Respiratory: No cough, No sputum Cardiovascular: No chest pain, No orthopnea Abdomen: No pain, No nausea Musculoskeletal: No joint pain Neurologic: No memory loss, No paralysis Endocrine: No fatigue Physical Exam Date Time Temp Pulse Resp B/P (MAP) Pulse Ox O2 Delivery O2 Flow Rate FiO2 09/17/17 16:15 37.6 91 20 124/74 (91) 100 Room Air 09/17/17 15:40 74 20 125/64 97 Room Air 09/17/17 13:56 89 20 121/64 98 Room Air 09/17/17 11:36 36.4 84 20 139/77 100 Room Air General Appearance: WD/WN, no apparent distress Neck: supple, no adenopathy Respiratory/Chest: chest non-tender, lungs clear, normal breath sounds Cardiovascular: regular rate, rhythm, no edema, no gallop Abdomen/GI: normal bowel sounds, soft, + tenderness (RLQ, no rebound tenderness , no guarding) Extremities/Musculoskelatal: normal inspection, no calf tenderness Skin: normal color Lymphatic: no adenopathy Laboratory Results Last 24 Hours Test 09/17/17 10:31 09/17/17 12:20 09/17/17 12:24 Urine Color YELLOW Urine Appearance CLEAR Urine pH 7.0 Urine Specific [place] 1.011 Urine Protein NEG Urine Glucose (UA) NEG Urine Ketones NEG Urine Occult Blood NEG Urine Nitrite NEG Urine Bilirubin NEG Urine Urobilinogen NEG Urine Leukocyte Esterase NEG White Blood Count 13.51 K/uL Red Blood Count 4.52 M/uL Hemoglobin 13.4 g/dL Hematocrit 41.0 % Mean Corpuscular Volume 90.7 fL Mean Corpuscular Hemoglobin 29.6 pg Mean Corpuscular Hemoglobin Concent 32.7 g/dl Platelet Count 187 K/uL Mean Platelet Volume 10.0 fL Neutrophils (%) (Auto) 73.8 % Lymphocytes (%) (Auto) 10.4 % Monocytes (%) (Auto) 10.7 % Eosinophils (%) (Auto) 4.8 % Basophils (%) (Auto) 0.2 % Neutrophils # (Auto) 9.95 K/uL Lymphocytes # (Auto) 1.41 K/uL Monocytes # (Auto) 1.45 K/uL Eosinophils # (Auto) 0.65 K/uL Basophils # (Auto) 0.03 K/uL RDW Standard Deviation 45.1 fL RDW Coefficient of Variation 13.6 % Immature Granulocyte % (Auto) 0.1 % Immature Granulocyte # (Auto) 0.02 K/uL Prothrombin Time 37.3 SECONDS Prothromb Time International Ratio 3.3 Activated Partial Thromboplast Time 57.2 SECONDS Partial Thromboplastin Ratio 2.2 Sodium Level 133 mmol/L Potassium Level 3.7 mmol/L Chloride Level 101 mmol/L Carbon Dioxide Level 27 mmol/L Anion Gap 6.0 mmol/L 18.0 mmol/L Blood Urea Nitrogen 12 mg/dl Creatinine 1.35 mg/dl Est Creatinine Clear Calc Drug Dose 82.5 ml/min Estimated GFR () 75.0 Estimated GFR (Non- 64.8 BUN/Creatinine Ratio 8.6 Random Glucose 98 mg/dl Calcium Level 8.4 mg/dl Total Bilirubin 0.8 mg/dl Aspartate Amino Transf (AST/SGOT) 14 U/L Alanine Aminotransferase (ALT/SGPT) 10 U/L Alkaline Phosphatase 68 U/L Total Protein 6.8 gm/dl Albumin 3.2 gm/dl Globulin 3.6 gm/dl Albumin/Globulin Ratio 0.9 Lipase 80 U/L Bedside Hemoglobin 14.6 g/dl Bedside Hematocrit 43 % Bedside Sodium 135 mEq/L Bedside Potassium 3.7 mEq/L Bedside Chloride 97 mEq/L Bedside Total CO2 26 mEq/l Bedside Blood Urea Nitrogen 11 mg/dl Bedside Creatinine 1.4 mg/dl Bedside Glucose (other) 99 mg/dl Bedside Ionized Calcium (Hernandez) 1.13 mmol/l Assessment & Plan Abdominal pain in a 42 year old male likely secondary to blunt trauma; Is admitted under surgical service for possible acute appendicitis. It appears they are monitoring patient overnight. Medical service consulted for supra-therapeutic INR. IF patient requires emergency surgery, FFP may be an option. However, as it seems likely that patient will be monitored overnight, Vit K was given PO. Will recheck his INR in AM.
[2017-09-17] MEDS: SODIUM CHLORIDE 0.9% 1000ML 1,000 ML IV SCH (17:32)
[2017-09-17] MEDS: MoRPHine SULFATE 2 MG/ML CARP IV PRN ×2 (17:32→22:18)
[2017-09-17 17:35] VITALS: Ht 175.3 cm; Wt 96.3 kg
[2017-09-17] MEDS: METRONIDAZOLE / NSS 500 MG in PREMIXED NSS 100 ML IV SCH (18:20)
[2017-09-17] MEDS: CIPROFLOXACIN / D5W 400 MG in PREMIXED IN D5W 200 ML IV SCH (18:22)
[2017-09-17 22:59] VITALS: BP 124/70; PULSE 85; TEMP 37.1; O2SAT 95
[2017-09-18] VITALS (13 sets, daily range): BP systolic 98–124; BP diastolic 59–70; PULSE 68–88; TEMP 36.7–37.7; O2SAT 90–95
[2017-09-18] MEDS: SODIUM CHLORIDE 0.9% 1000ML 1,000 ML IV SCH ×3 (00:56→17:00)
[2017-09-18] MEDS: METRONIDAZOLE / NSS 500 MG in PREMIXED NSS 100 ML IV SCH ×3 (00:56→15:47)
[2017-09-18] MEDS: CIPROFLOXACIN / D5W 400 MG in PREMIXED IN D5W 200 ML IV SCH ×2 (05:42→16:14)
[2017-09-18 08:30] LABS: INR 2.7 (0.9-1.1); PROTHROMBIN TIME (PATIENT) 30.4 SECONDS (9.0-12.0)
[2017-09-18 08:47] LABS: HEMATOCRIT 40.6 % (42-52); MEAN CELL VOLUME 90.6 fL (80-100); MEAN CORPUSCULAR HEMOGLOBIN 29.7 pg (25-34); MEAN CORPUSCULAR HGB CONC 32.8 g/dl (32-36); PLATELET COUNT 194 K/uL (130-400); RED BLOOD COUNT 4.48 M/uL (4.7-6.1); WHITE BLOOD COUNT 20.47 K/uL (4.8-10.8)
[2017-09-18 08:48] LABS: BASO ABS # 0.01 K/uL (0-0.2); COMPLETE YES; EOS % 0.3 %; IG% 0.3 %; LYMPH % 8.3 %; MONO % 10.5 %; NEUT % 80.6 %; TOXIC GRANULATION 1+; VACUOLIZATION 2+
[2017-09-18 08:57] LABS: BUN/CREATININE RATIO 14.7 (10-20); CALCIUM 8.4 mg/dl (8.5-10.1); CREATININE 1.28 mg/dl (0.60-1.40); POTASSIUM 3.9 mmol/L (3.5-5.1)
--- NOTE | 2017-09-18 09:17 | Surgery Progress Note ---
Surgery Progress Note Date of Service Sep 18, 2017. Subjective Patient examined at bedside this morning. Afebrile, vitals stable on room air overnight, no acute events. Continues to have RLQ pain this morning. Tender to palpation in RLQ, no rebound / guarding. Denies N/V. Ambulating and voiding without difficulty. Passing flatus. Objective Vital Signs: Date Time Temp Pulse Resp B/P (MAP) Pulse Ox O2 Delivery O2 Flow Rate FiO2 09/18/17 09:03 37.4 83 24 114/64 (81) 93 Room Air 09/17/17 23:50 Room Air 09/17/17 22:59 37.1 85 20 124/70 (88) 95 Room Air 09/17/17 18:00 Room Air 09/17/17 17:35 Room Air 09/17/17 16:15 37.6 91 20 124/74 (91) 100 Room Air 09/17/17 15:40 74 20 125/64 97 Room Air 09/17/17 13:56 89 20 121/64 98 Room Air 09/17/17 11:36 36.4 84 20 139/77 100 Room Air General Appearance: WD/WN, no apparent distress Head: normocephalic Neck: supple Respiratory/Chest: lungs clear, normal breath sounds Cardiovascular: regular rate, rhythm, no edema Abdomen: non distended (no rebound / guarding), soft, + tenderness (tender to palpation in RLQ) Extremities: normal range of motion Laboratory Results: Results Past 24 Hours Test 09/17/17 10:31 09/17/17 12:20 09/17/17 12:24 09/18/17 07:55 Range/Units Urine Color YELLOW Urine Appearance CLEAR CLEAR Urine pH 7.0 4.5-7.5 Urine Specific [place] 1.011 1.000-1.030 Urine Protein NEG NEG Urine Glucose (UA) NEG NEG Urine Ketones NEG NEG Urine Occult Blood NEG NEG Urine Nitrite NEG NEG Urine Bilirubin NEG NEG Urine Urobilinogen NEG NEG Urine Leukocyte Esterase NEG NEG White Blood Count 13.51 20.47 4.8-10.8 K/uL Red Blood Count 4.52 4.48 4.7-6.1 M/uL Hemoglobin 13.4 13.3 14.0-18.0 g/dL Hematocrit 41.0 40.6 42-52 % Mean Corpuscular Volume 90.7 90.6 80-100 fL Mean Corpuscular Hemoglobin 29.6 29.7 25-34 pg Mean Corpuscular Hemoglobin Concent 32.7 32.8 32-36 g/dl Platelet Count 187 194 130-400 K/uL Mean Platelet Volume 10.0 10.0 7.4-10.4 fL Neutrophils (%) (Auto) 73.8 80.6 % Lymphocytes (%) (Auto) 10.4 8.3 % Monocytes (%) (Auto) 10.7 10.5 % Eosinophils (%) (Auto) 4.8 0.3 % Basophils (%) (Auto) 0.2 0.0 % Neutrophils # (Auto) 9.95 16.49 1.4-6.5 K/uL Lymphocytes # (Auto) 1.41 1.70 1.2-3.4 K/uL Monocytes # (Auto) 1.45 2.14 0.11-0.59 K/uL Eosinophils # (Auto) 0.65 0.07 0-0.5 K/uL Basophils # (Auto) 0.03 0.01 0-0.2 K/uL RDW Standard Deviation 45.1 46.1 36.4-46.3 fL RDW Coefficient of Variation 13.6 13.8 11.5-14.5 % Immature Granulocyte % (Auto) 0.1 0.3 % Immature Granulocyte # (Auto) 0.02 0.06 0.00-0.02 K/uL Prothrombin Time 37.3 30.4 9.0-12.0 SECONDS Prothromb Time International Ratio 3.3 2.7 0.9-1.1 Activated Partial Thromboplast Time 57.2 21.0-31.0 SECONDS Partial Thromboplastin Ratio 2.2 Sodium Level 133 138 136-145 mmol/L Potassium Level 3.7 3.9 3.5-5.1 mmol/L Chloride Level 101 109 98-107 mmol/L Carbon Dioxide Level 27 23 21-32 mmol/L Anion Gap 6.0 18.0 6.0 3-11 mmol/L Blood Urea Nitrogen 12 19 7-18 mg/dl Creatinine 1.35 1.28 0.60-1.40 mg/dl Est Creatinine Clear Calc Drug Dose 82.5 87.0 ml/min Estimated GFR () 75.0 80.0 Estimated GFR (Non- 64.8 69.1 BUN/Creatinine Ratio 8.6 14.7 10-20 Random Glucose 98 95 70-99 mg/dl Calcium Level 8.4 8.4 8.5-10.1 mg/dl Total Bilirubin 0.8 0.2-1 mg/dl Aspartate Amino Transf (AST/SGOT) 14 15-37 U/L Alanine Aminotransferase (ALT/SGPT) 10 12-78 U/L Alkaline Phosphatase 68 45-117 U/L Total Protein 6.8 6.4-8.2 gm/dl Albumin 3.2 3.4-5.0 gm/dl Globulin 3.6 2.5-4.0 gm/dl Albumin/Globulin Ratio 0.9 0.9-2 Lipase 80 73-393 U/L Bedside Hemoglobin 14.6 14.0-18.0 g/dl Bedside Hematocrit 43 42-52 % Bedside Sodium 135 135-144 mEq/L Bedside Potassium 3.7 3.3-5.0 mEq/L Bedside Chloride 97 101-112 mEq/L Bedside Total CO2 26 24-31 mEq/l Bedside Blood Urea Nitrogen 11 7-18 mg/dl Bedside Creatinine 1.4 0.6-1.3 mg/dl Bedside Glucose (other) 99 70-99 mg/dl Bedside Ionized Calcium (Hernandez) 1.13 1.12-1.32 mmol/l Toxic Granulation 1+ Toxic Vacuolation 2+ Assessment & Plan Kirill Salmeron is a 42 year old man with history of ascending aortic aneurysm repair with mechanical aortic valve placement (on coumadin) who presents with RLQ pain s/p blunt trauma, CT scan concerning for possible early appendicitis. He is afebrile, vitals are stable and normal on room air. Increased leukocytosis this morning with continued pain. -Cardiology consult placed given history of cardiac surgery, high risk of reversing INR for prolonged period of time -Depending on cardiology recommendations, may need higher level of care for periop management given cardiac history vs continuing antibiotic therapy only for appendicitis -Given Vit K last night; FFP ordered but ON HOLD pending cardiology recommendations. Will need reversal if proceeds to OR. -NPO for OR, IVF hydration -Pain control and antiemetics as needed -Continue IV Antibiotics - cipro / flagyl -SCDs Cristy Chacon MD 09/18/17
[2017-09-18] MEDS: MoRPHine SULFATE 2 MG/ML CARP IV PRN (09:24)
--- NOTE | 2017-09-18 14:03 | Cardiology Consultation ---
Cardiology Consultation Date of Consultation: Sep 18, 2017. Requesting Physician: Oswaldo Reason for Consultation: Aortic valve disease Pt evaluation today including: conversation w/ patient, physical exam, chart review, lab review, review of studies, conversation w/ attending History of Present Illness The patient is a 42-year-old gentleman with a history of bicuspid aortic valve who has previously undergone mechanical aortic valve replacement and repair of ascending aortic aneurysm. From a cardiac standpoint he has been stable but recently began to experience the symptoms right lower quadrant pain. This began after an injury at work. This involved a injury to his abdomen from a pipe which is being well did. Afterwards the patient gradually developed worsening abdominal discomfort and presented for evaluation at [facility]. CT scanning did not demonstrate any obvious intra-abdominal trauma or injury but there was some suspicion about acute appendicitis. Based on the patient's symptoms and objective findings, he is felt to need urgent laparoscopy and possibly operative intervention. Leading up to this event the patient has been feeling well. He has been engage in his usual activities without any new limitations or symptoms. He denies any exertional dyspnea. He has no symptoms of chest discomfort. He has not been aware of any palpitations. He has not had any symptoms of dizziness or lightheadedness. Past Medical/Surgical History Aortic aneurysm Bicuspid aortic valve Migraines Carpal tunnel syndrome Depression and anxiety Post concussion syndrome Schizoaffective disorder Past surgical history: Mechanical aortic valve and aortic root replacement, 2007 Family History Patient reports no known family medical history. No premature coronary disease Social History Smoking Status: Current Every Day Smoker History of Alcohol Use: No Currently works in [employer] Review of Systems No recent constitutional symptoms such as fevers or chills. No upper respiratory symptoms recently. All Other Systems: Reviewed and Negative Allergies Coded Allergies: NSAIDs (Verified Allergy, Unknown, CANNOT TAKE WHILE ON COUMADIN, 09/17/17) Propranolol (Verified Adverse Reaction, Intermediate, Bradycardia, 09/17/17 ) Medications Current Inpatient Medications Medications (Trade) Dose Ordered Sig/Alondra Route Start Time Stop Time Status Last Admin Dose Admin Ioversol (Optiray 320) 125 ml UD PRN IV 09/17/17 12:00 09/21/17 11:59 Sodium Chloride 1,000 ml @ 125 mls/hr Q8H IV 09/17/17 17:00 10/17/17 14:44 09/18/17 08:49 125 MLS/HR Ondansetron HCl (Zofran Inj) 4 mg Q4H PRN IV 09/17/17 14:45 10/17/17 14:44 Ciprofloxacin/ Dextrose 400 mg/ Prmx 200 ml @ 100 mls/hr Q12H IV 09/17/17 18:00 09/27/17 14:44 09/18/17 05:42 100 MLS/HR Metronidazole 500 mg/Prmx 100 ml @ 100 mls/hr Q8H IV 09/17/17 17:00 09/27/17 14:44 09/18/17 08:48 100 MLS/HR Morphine Sulfate (MoRPHine SULFATE INJ) 1 mg Q1HWA PRN IV 09/17/17 15:00 10/01/17 14:44 Morphine Sulfate (MoRPHine SULFATE INJ) 2 mg Q1HWA PRN IV 09/17/17 15:00 10/01/17 14:44 09/18/17 09:24 2 MG Morphine Sulfate (MoRPHine SULFATE INJ) 4 mg Q1HWA PRN IV 09/17/17 15:00 10/01/17 14:44 Physical Exam Vital Signs Past 12 Hours Date Time Temp Pulse Resp B/P (MAP) Pulse Ox O2 Delivery O2 Flow Rate FiO2 09/18/17 13:11 36.7 83 16 114/65 09/18/17 12:42 37.3 78 16 108/67 09/18/17 12:26 37.1 88 16 108/63 09/18/17 12:09 37.4 88 18 106/64 09/18/17 09:03 37.4 83 24 114/64 (81) 93 Room Air 09/18/17 07:45 Room Air The patient is alert and oriented. Mood and affect appeared normal. He did appear uncomfortable and mildly sedated. He answered all questions appropriately. HEENT: Pupils are equal and reactive to light and accommodation. Extraocular movements are intact. The sclerae are anicteric. Neuro: Cranial nerves intact Neck: Patient's neck is supple. He has palpable carotid pulses bilaterally without bruits on auscultation. There is no evidence of jugular venous distention. The thyroid is not enlarged. Lungs: Clear to auscultation bilaterally. He has good air movement without use of accessory muscles. No rales wheezes or rhonchi. Cardiac: Heart demonstrates a regular rate and rhythm. Normal S1 and mechanical S2. Crescendo systolic murmur. Pulses: The patient has palpable radial pulses bilaterally that are equal in intensity Extremities: There was no evidence of hypoperfusion. There is no cyanosis or clubbing. There is no edema. Skin: I did not appreciate any rashes on examination today. Multiple tattoos Data Laboratory Results: Last 24 Hours Test 09/18/17 07:55 White Blood Count 20.47 K/uL Red Blood Count 4.48 M/uL Hemoglobin 13.3 g/dL Hematocrit 40.6 % Mean Corpuscular Volume 90.6 fL Mean Corpuscular Hemoglobin 29.7 pg Mean Corpuscular Hemoglobin Concent 32.8 g/dl Platelet Count 194 K/uL Mean Platelet Volume 10.0 fL Neutrophils (%) (Auto) 80.6 % Lymphocytes (%) (Auto) 8.3 % Monocytes (%) (Auto) 10.5 % Eosinophils (%) (Auto) 0.3 % Basophils (%) (Auto) 0.0 % Neutrophils # (Auto) 16.49 K/uL Lymphocytes # (Auto) 1.70 K/uL Monocytes # (Auto) 2.14 K/uL Eosinophils # (Auto) 0.07 K/uL Basophils # (Auto) 0.01 K/uL RDW Standard Deviation 46.1 fL RDW Coefficient of Variation 13.8 % Immature Granulocyte % (Auto) 0.3 % Immature Granulocyte # (Auto) 0.06 K/uL Toxic Granulation 1+ Toxic Vacuolation 2+ Prothrombin Time 30.4 SECONDS Prothromb Time International Ratio 2.7 Sodium Level 138 mmol/L Potassium Level 3.9 mmol/L Chloride Level 109 mmol/L Carbon Dioxide Level 23 mmol/L Anion Gap 6.0 mmol/L Blood Urea Nitrogen 19 mg/dl Creatinine 1.28 mg/dl Est Creatinine Clear Calc Drug Dose 87.0 ml/min Estimated GFR () 80.0 Estimated GFR (Non- 69.1 BUN/Creatinine Ratio 14.7 Random Glucose 95 mg/dl Calcium Level 8.4 mg/dl Imaging: I reviewed the results of his CT scan I reviewed the results of his echocardiogram performed on June 30, 2017. Normal function of a mechanical aortic valve. No evidence of the aortic root dilation. Normal LV systolic function. Assessment & Plan 1. Aortic valve disease: Patient underwent prior aortic valve and root replacement. His echocardiogram in June of this year revealed normal function of aortic valve and no evidence of recurrence aneurysm. He has not had any cardiac symptoms recently. He has an urgent indication for surgery and will need reversal of his anticoagulation. He was administered vitamin K yesterday with some reduction in his INR today. However, he will likely require FFP for full reversal. As his mechanical valve is in the aortic position he is at lower risk of thrombosis. Can easily go without anticoagulation for several days if necessary. He will not require bridging in the immediate postoperative period if this increases his risk of intra- abdominal hemorrhage. Systemic anticoagulation should be re-initiated at the discretion of the surgeon, ideally a dose of warfarin this evening after his anticipated surgery. If we have difficulty achieving systemic anticoagulation over several days we could consider initiation of systemic heparinization at that time.
[2017-09-18] MEDS ORDERED: FENTANYL CITRATE INJ 50 MCG/1 ML 2 ML VIAL ONE ×3 (14:46→17:38)
[2017-09-18] MEDS ORDERED: MIDAZOLAM HCL 1 MG/ML 2ML VIAL ONE ×2 (14:46)
--- NOTE | 2017-09-18 15:03 | Hospitalist Progress Note ---
Hospitalist Progress Note Date of Service Sep 18, 2017. (Delfina Andino CRNP) Subjective Pt evaluation today including: conversation w/ patient, physical exam, chart review, review of studies, review of inpatient medication list Pain: 06/19 Voiding: no voiding problems Mr. Salmeron is in quite a lot of pain especially over his right lower quadrant today. He feels short of breath due to being unable to take a deep breath with the pain in his abdomen. He is scheduled for urgent surgery this afternoon. ROS Constitutional: no chills, aches, sweats or fever Respiratory: See HPI,cough, sputum, or wheezing Cardiac: no chest pain, palpitations, edema, orthopnea or lightheadedness GI: see HPI : no dysuria or hesitancy Extremities: no joint pain or weakness Skin: no rash (Delfina Andino CRNP) Medications Medications (Trade) Dose Ordered Sig/Alondra Route Start Time Stop Time Status Last Admin Dose Admin Sodium Chloride 1,000 ml @ 125 mls/hr Q8H IV 09/17/17 17:00 10/17/17 14:44 09/18/17 08:49 125 MLS/HR Ciprofloxacin/ Dextrose 400 mg/ Prmx 200 ml @ 100 mls/hr Q12H IV 09/17/17 18:00 09/27/17 14:44 09/18/17 05:42 100 MLS/HR Metronidazole 500 mg/Prmx 100 ml @ 100 mls/hr Q8H IV 09/17/17 17:00 09/27/17 14:44 09/18/17 08:48 100 MLS/HR Morphine Sulfate (MoRPHine SULFATE INJ) 2 mg Q1HWA PRN IV 09/17/17 15:00 10/01/17 14:44 09/18/17 09:24 2 MG Phytonadione (Mephyton Tab) 2.5 mg NOW STAT PO 09/17/17 17:21 09/17/17 17:26 DC 09/17/17 18:20 2.5 MG (Delfina Andino CRNP) Objective Vital Signs Date Time Temp Pulse Resp B/P (MAP) Pulse Ox O2 Delivery O2 Flow Rate FiO2 09/18/17 14:40 37.7 79 18 115/59 95 09/18/17 13:43 37.0 80 16 117/64 09/18/17 13:11 36.7 83 16 114/65 09/18/17 12:42 37.3 78 16 108/67 09/18/17 12:26 37.1 88 16 108/63 09/18/17 12:09 37.4 88 18 106/64 09/18/17 09:03 37.4 83 24 114/64 (81) 93 Room Air 09/18/17 07:45 Room Air 09/17/17 23:50 Room Air 09/17/17 22:59 37.1 85 20 124/70 (88) 95 Room Air 09/17/17 18:00 Room Air 09/17/17 17:35 Room Air 09/17/17 16:15 37.6 91 20 124/74 (91) 100 Room Air 09/17/17 15:40 74 20 125/64 97 Room Air (Delfina Andino, AYANNA) Laboratory Results Last 24 Hours Test 09/18/17 07:55 White Blood Count 20.47 K/uL Red Blood Count 4.48 M/uL Hemoglobin 13.3 g/dL Hematocrit 40.6 % Mean Corpuscular Volume 90.6 fL Mean Corpuscular Hemoglobin 29.7 pg Mean Corpuscular Hemoglobin Concent 32.8 g/dl Platelet Count 194 K/uL Mean Platelet Volume 10.0 fL Neutrophils (%) (Auto) 80.6 % Lymphocytes (%) (Auto) 8.3 % Monocytes (%) (Auto) 10.5 % Eosinophils (%) (Auto) 0.3 % Basophils (%) (Auto) 0.0 % Neutrophils # (Auto) 16.49 K/uL Lymphocytes # (Auto) 1.70 K/uL Monocytes # (Auto) 2.14 K/uL Eosinophils # (Auto) 0.07 K/uL Basophils # (Auto) 0.01 K/uL RDW Standard Deviation 46.1 fL RDW Coefficient of Variation 13.8 % Immature Granulocyte % (Auto) 0.3 % Immature Granulocyte # (Auto) 0.06 K/uL Toxic Granulation 1+ Toxic Vacuolation 2+ Prothrombin Time 30.4 SECONDS Prothromb Time International Ratio 2.7 Sodium Level 138 mmol/L Potassium Level 3.9 mmol/L Chloride Level 109 mmol/L Carbon Dioxide Level 23 mmol/L Anion Gap 6.0 mmol/L Blood Urea Nitrogen 19 mg/dl Creatinine 1.28 mg/dl Est Creatinine Clear Calc Drug Dose 87.0 ml/min Estimated GFR () 80.0 Estimated GFR (Non- 69.1 BUN/Creatinine Ratio 14.7 Random Glucose 95 mg/dl Calcium Level 8.4 mg/dl (Delfina Andino CRNP) Assessment and Plan 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 He has a history of ascending aortic aneurysm with subsequent aortic root and aortic valve replacement with mechanical valve in 2007. Abdominal trauma/appendicitis on CT - surgery today per general surgery. - reversal of INR with FFP per surgery - pain control - monitor post op cbc/ prp Mechanical aortic valve - coumadin reversed per surgery - cardiology recommends to restart coumadin tonight if possible but are comfortable with it being held for a couple of days. - INR with morning labs Full code DVT prophylaxis - therapeutic INR. (Delfina Andino CRNP) [employer] Physician Supervision Note: I interviewed and examined the patient. Discussed with Delfina Andino NP and agree with findings and plan as documented in the note. Any exceptions or clarifications are listed here: None Patient is taken to the OR today for acute perforated appendicitis by surgery patient had his anticoagulation reversed with fresh from the plasma. Patient cannot be seen due to his prolonged operating stay on 09/18 Documented By: Zeus Rivera (Zeus Rivera M.D.)
[2017-09-18 15:30] LABS: INR 1.9 (0.9-1.1); PROTHROMBIN TIME (PATIENT) 21.3 SECONDS (9.0-12.0)
[2017-09-18] MEDS ORDERED: BUPIVACAINE 0.5 % 5 MG/1 ML MPF 30ML VIAL ONE (15:32)
[2017-09-18] MEDS ORDERED: LIDOCAINE HCL 1% 20 ML VIAL ONE (15:33)
[2017-09-18] MEDS ORDERED: EpHEDrine SULFATE INJ 50 MG/ML AMP IV PRN (15:45)
[2017-09-18] MEDS ORDERED: FENTANYL CITRATE INJ 50 MCG/1 ML 2 ML VIAL IV PRN (15:45)
[2017-09-18] MEDS ORDERED: ONDANSETRON INJ 2 MG/ML 2 ML VIAL IV PRN (15:45)
[2017-09-18] MEDS ORDERED: ATROPINE SULFATE 0.1 MG/ML 5ML SYR IV PRN (15:45)
[2017-09-18] MEDS ORDERED: HYDROmorphone INJ 1 MG/ML SYR IV PRN (15:45)
[2017-09-18] MEDS ORDERED: GLYCOPYRROLATE INJ 0.2 MG/ML VIAL ONE (16:33)
[2017-09-18] MEDS ORDERED: ONDANSETRON INJ 2 MG/ML 2 ML VIAL ONE (16:33)
[2017-09-18] MEDS ORDERED: DEXAMETHASONE SOD INJ 4 MG/ML VIAL ONE (16:33)
[2017-09-18] MEDS ORDERED: NEOSTIGMINE METHYLSULFATE 5 MG/5 ML SYR ONE (16:33)
[2017-09-18] MEDS ORDERED: LIDOCAINE HCL 2% 2 ML VIAL (20MG/ML) ONE (16:33)
[2017-09-18] MEDS ORDERED: PROPOFOL IV EMULSION 10 MG/ML 20 ML VIAL IV ONE (16:33)
[2017-09-18] MEDS ORDERED: ROCURONIUM BROMIDE 10 MG/ML 5 ML VIAL IV ONE (17:04)
[2017-09-18] MEDS ORDERED: BACITRACIN OINT 15 GM TUBE ONE (17:34)
[2017-09-18] MEDS ORDERED: ZOLPIDEM TARTRATE 5 MG TAB PO PRN (18:00)
--- NOTE | 2017-09-18 18:10 | [facility] Operative Report ---
Operative Report Operative Date Sep 18, 2017. Pre-Operative Diagnosis Acute Appendititis Post-Operative Diagnosis Acute Perforated Appendicitis Procedure(s) Performed Laparoscopic Appendectomy Surgeon Cristy Chacon MD Inspector Final Assembly Electrical Surgeon(s) Obdulia Winters MD Estimated Blood Loss 10ML Findings Acute perforated appendicitis with murky fluid and fibrinous tissue Fluids 1900 Specimens a. Appendix to pathology Drains One 19 Lao ricardo drain in the pelvis Anesthesia GETA, 40ml of local anesthetic (0.5% Marcaine + 1% Xylocaine 50/50 mix) Complication(s) None Disposition Recovery Room / PACU Indications Kirill Salmeron is a 42 year old man admitted with acute appendicitis. Indications , risks, benefits and potential complications of laparoscopic, possible open appendectomy discussed at length with the patient. All questions answered to apparent satisfaction. Patient agreed to proceed with the operation and freely signed the consent form. Description of Procedure Patient was brought to the operating room and identified as Kirill Salmeron, . He was placed on the operating table in supine position. Anesthesia was induced, and patient was intubated without difficulty. A porter catheter was placed to decompress the bladder. The abdomen was prepped and draped in the usual sterile fashion. A time-out was held verifying correct patient, procedure, site, pre op antibiotics, allergies, equipment available and personnel. Local anesthetic was injected superior to the umbilicus, and a 12mm incision was made and carried down through subcutaneous tissue. Fascia was identified, and two Haresh clamps were placed for upward traction. The fascia was incised using a scalpel. Two hemostats were placed on the peritoneum for upward traction, and the peritoneum was entered using Metzenbaum scissors to enter the abdomen. A 12mm balloon port was placed, and insufflation established. A 10mm endoscope was inserted and the abdomen explored. Murky fluid was found in the right lower quadrant, with fibrinous tissue overlying the appendix. A 5mm port was placed at midline above the pubic bone under direct vision. A second 5mm port was placed in the left lower quadrant. The appendix was identified by following the tenia from the cecum to the appendix. The appendix was found to be extremely inflamed, with a perforation in the mid-portion, curled on itself in a retrocecal position. A combination of Denys graspers and suction irrigation were used to bluntly dissect the fibrinous tissue away from the appendix. A third 5mm port was placed in the right upper quadrant to assist with exposure. A window was made at the base of the appendix using [place] graspers. The 10mm endoscope was switched out for a 5mm endoscope, and a 10mm stapler was placed through the umbilical port. The appendix was stapled using a 45mm purple load of the stapler. The mesoappendix was then taken down using the Harmonic scalpel to achieve hemostasis. Once the appendix was fully liberated, a 10mm endocatch bag was placed through the 10mm umbilical port, and the appendix was placed in the bag and removed from the abdomen; the specimen was passed off the field to be taken to pathology. The right lower quadrant was inspected for hemostasis. No active bleeding was found. The right lower quadrant, right colic gutter and pelvis were thoroughly irrigated using sterile saline, and evacuated of fluid. A 19 belizean Ricardo drain was placed into the pelvis and right lower quadrant up the right colic gutter and exiting through the suprapubic 5mm port site; this was secured in place with a Nylon suture. Ports were then removed under direct vision to ensure hemostasis. All sponge and instrument counts were verified to be correct x 2 by the nurse in charge. Fascia at the umbilicus was closed using 0 Vicryl suture in figure of eight fashion. All port sites were closed using 4-0 Monocryl, and sterile dressings were applied. Patient was then awakened from anesthesia, extubated without difficulty, and was taken to PACU in stable condition, having suffered no untoward events. I attest to the content of the Intraoperative Record and any orders documented therein. Any exceptions are noted below.
[2017-09-18] MEDS ORDERED: OXYCODONE HCL IR 5 MG TAB (IMMEDIATE RELEASE) PO PRN (18:15)
--- NOTE | 2017-09-18 18:18 | Anesthesiology Progress Note ---
Anesthesia Post Op Note Date & Time Sep 18, 2017 at 18:18 Vital Signs Pain Intensity: 0 Vital Signs Past 12 Hours Date Time Temp Pulse Resp B/P (MAP) Pulse Ox O2 Delivery O2 Flow Rate FiO2 09/18/17 18:15 72 16 115/63 98 Oxymask 10 09/18/17 18:05 72 16 120/59 97 Oxymask 10 09/18/17 17:58 36.7 73 16 124/69 96 Oxymask 10 09/18/17 14:40 37.7 79 18 115/59 95 09/18/17 13:43 37.0 80 16 117/64 09/18/17 13:11 36.7 83 16 114/65 09/18/17 12:42 37.3 78 16 108/67 09/18/17 12:26 37.1 88 16 108/63 09/18/17 12:09 37.4 88 18 106/64 09/18/17 09:03 37.4 83 24 114/64 (81) 93 Room Air 09/18/17 07:45 Room Air Notes Mental Status: alert / awake / arousable, participated in evaluation Pt Amnestic to Procedure: Yes Nausea / Vomiting: adequately controlled Pain: adequately controlled Airway Patency, RR, SpO2: stable & adequate BP & HR: stable & adequate Hydration State: stable & adequate Anesthetic Complications: no major complications apparent
[2017-09-18] MEDS: OXYCODONE HCL IR 5 MG TAB (IMMEDIATE RELEASE) PO PRN (20:08)
[2017-09-18] MEDS: CLONAZEPAM 1 MG TAB PO SCH (21:49)
[2017-09-18] MEDS: METHYLPHENIDATE HCL 10 MG TAB PO SCH (21:49)
[2017-09-18] MEDS: TOPIRAMATE 100 MG TAB PO SCH (21:55)
[2017-09-18] MEDS: GABAPENTIN 600 MG TAB PO SCH (21:55)
[2017-09-19] MEDS: METRONIDAZOLE / NSS 500 MG in PREMIXED NSS 100 ML IV SCH ×3 (00:28→16:41)
[2017-09-19] MEDS: SODIUM CHLORIDE 0.9% 1000ML 1,000 ML IV SCH ×3 (00:29→20:38)
[2017-09-19 03:24] VITALS: BP 116/65; PULSE 77; TEMP 36.7; O2SAT 96
[2017-09-19] MEDS: OXYCODONE HCL IR 5 MG TAB (IMMEDIATE RELEASE) PO PRN ×3 (04:33→18:13)
[2017-09-19] MEDS: CIPROFLOXACIN / D5W 400 MG in PREMIXED IN D5W 200 ML IV SCH ×2 (05:30→17:31)
[2017-09-19 07:13] LABS: BASO % 0.1 %; BASO ABS # 0.01 K/uL (0-0.2); COMPLETE YES; HEMATOCRIT 39.4 % (42-52); IG% 0.3 %; LYMPH % 4.8 %; LYMPH ABS # 0.93 K/uL (1.2-3.4); MEAN CELL VOLUME 91.8 fL (80-100); MEAN CORPUSCULAR HEMOGLOBIN 30.3 pg (25-34); MEAN PLATELET VOLUME 10.1 fL (7.4-10.4); MONO % 6.2 %; NEUT % 88.6 %; PLATELET COUNT 195 K/uL (130-400); RED BLOOD COUNT 4.29 M/uL (4.7-6.1); WHITE BLOOD COUNT 19.31 K/uL (4.8-10.8)
[2017-09-19 07:15] LABS: PROTHROMBIN TIME (PATIENT) 21.9 SECONDS (9.0-12.0)
[2017-09-19 07:28] LABS: BUN/CREATININE RATIO 10.3 (10-20); CALCIUM 8.7 mg/dl (8.5-10.1); CREATININE 1.17 mg/dl (0.60-1.40); POTASSIUM 3.4 mmol/L (3.5-5.1)
--- NOTE | 2017-09-19 07:40 | Anesthesiology Progress Note ---
Anesthesia Post Op Note Date & Time Sep 19, 2017 at 07:40 Vital Signs Pain Intensity: 8.0 Vital Signs Past 12 Hours Date Time Temp Pulse Resp B/P (MAP) Pulse Ox O2 Delivery O2 Flow Rate FiO2 09/19/17 03:24 36.7 77 16 116/65 (82) 96 Room Air 09/18/17 23:25 Room Air 09/18/17 22:50 36.7 68 16 101/61 (74) 95 Room Air 09/18/17 21:47 37.0 69 16 98/59 (72) 95 Room Air 09/18/17 20:56 37.3 69 18 113/64 (80) 93 Room Air 09/18/17 19:52 37.1 82 20 124/66 (85) 95 Room Air 09/18/17 19:50 Room Air Notes Mental Status: alert / awake / arousable, participated in evaluation Pt Amnestic to Procedure: Yes Nausea / Vomiting: adequately controlled Pain: adequately controlled Airway Patency, RR, SpO2: stable & adequate BP & HR: stable & adequate Hydration State: stable & adequate Anesthetic Complications: no major complications apparent
--- NOTE | 2017-09-19 07:43 | Surgery Progress Note ---
Surgery Progress Note Date of Service Sep 19, 2017. Subjective Post OP Day: 1 Patient examined at bedside this morning. Afebrile, vitals stable on room air overnight, no acute events. Feeling much better this morning. Pain is well controlled with medications. Tolerating clear liquids overnight without N/V - would like to try regular food this morning. Had a BM early this morning. Ambulating and voiding without difficulty. Drain with serosanguinous output. Objective Vital Signs: Date Time Temp Pulse Resp B/P (MAP) Pulse Ox O2 Delivery O2 Flow Rate FiO2 09/19/17 03:24 36.7 77 16 116/65 (82) 96 Room Air 09/18/17 23:25 Room Air 09/18/17 22:50 36.7 68 16 101/61 (74) 95 Room Air 09/18/17 21:47 37.0 69 16 98/59 (72) 95 Room Air 09/18/17 20:56 37.3 69 18 113/64 (80) 93 Room Air 09/18/17 19:52 37.1 82 20 124/66 (85) 95 Room Air 09/18/17 19:50 Room Air 09/18/17 19:22 36.8 73 18 124/70 (88) 90 Room Air 09/18/17 18:45 37.3 80 16 112/67 (82) 91 Nasal Cannula 2.0 09/18/17 18:45 91 Nasal Cannula 2.0 09/18/17 18:35 37.7 78 16 109/65 94 Nasal Cannula 2 09/18/17 18:25 71 16 105/65 95 Nasal Cannula 2 09/18/17 18:15 72 16 115/63 98 Oxymask 10 09/18/17 18:05 72 16 120/59 97 Oxymask 10 09/18/17 17:58 36.7 73 16 124/69 96 Oxymask 10 09/18/17 14:40 37.7 79 18 115/59 95 09/18/17 13:43 37.0 80 16 117/64 09/18/17 13:11 36.7 83 16 114/65 09/18/17 12:42 37.3 78 16 108/67 09/18/17 12:26 37.1 88 16 108/63 09/18/17 12:09 37.4 88 18 106/64 09/18/17 09:03 37.4 83 24 114/64 (81) 93 Room Air 09/18/17 07:45 Room Air Physical Exam: Ricardo drainage (serosanguinous) General Appearance: WD/WN, no apparent distress Head: normocephalic, atraumatic Neck: supple Respiratory/Chest: lungs clear, normal breath sounds, no respiratory distress Cardiovascular: regular rate, rhythm Abdomen: normal bowel sounds, non distended, soft, + tenderness (appropriately tender to palpation) Incision(s): clean, dry, intact (surgical dressings in place) Laboratory Results: Results Past 24 Hours Test 09/18/17 07:55 09/18/17 15:02 09/19/17 06:36 Range/Units White Blood Count 20.47 19.31 4.8-10.8 K/uL Red Blood Count 4.48 4.29 4.7-6.1 M/uL Hemoglobin 13.3 13.0 14.0-18.0 g/dL Hematocrit 40.6 39.4 42-52 % Mean Corpuscular Volume 90.6 91.8 80-100 fL Mean Corpuscular Hemoglobin 29.7 30.3 25-34 pg Mean Corpuscular Hemoglobin Concent 32.8 33.0 32-36 g/dl Platelet Count 194 195 130-400 K/uL Mean Platelet Volume 10.0 10.1 7.4-10.4 fL Neutrophils (%) (Auto) 80.6 88.6 % Lymphocytes (%) (Auto) 8.3 4.8 % Monocytes (%) (Auto) 10.5 6.2 % Eosinophils (%) (Auto) 0.3 0.0 % Basophils (%) (Auto) 0.0 0.1 % Neutrophils # (Auto) 16.49 17.12 1.4-6.5 K/uL Lymphocytes # (Auto) 1.70 0.93 1.2-3.4 K/uL Monocytes # (Auto) 2.14 1.19 0.11-0.59 K/uL Eosinophils # (Auto) 0.07 0.00 0-0.5 K/uL Basophils # (Auto) 0.01 0.01 0-0.2 K/uL RDW Standard Deviation 46.1 45.6 36.4-46.3 fL RDW Coefficient of Variation 13.8 13.6 11.5-14.5 % Immature Granulocyte % (Auto) 0.3 0.3 % Immature Granulocyte # (Auto) 0.06 0.06 0.00-0.02 K/uL Toxic Granulation 1+ Toxic Vacuolation 2+ Prothrombin Time 30.4 21.3 21.9 9.0-12.0 SECONDS Prothromb Time International Ratio 2.7 1.9 2.0 0.9-1.1 Sodium Level 138 136 136-145 mmol/L Potassium Level 3.9 3.4 3.5-5.1 mmol/L Chloride Level 109 104 98-107 mmol/L Carbon Dioxide Level 23 24 21-32 mmol/L Anion Gap 6.0 8.0 3-11 mmol/L Blood Urea Nitrogen 19 12 7-18 mg/dl Creatinine 1.28 1.17 0.60-1.40 mg/dl Est Creatinine Clear Calc Drug Dose 87.0 95.1 ml/min Estimated GFR () 80.0 89.2 Estimated GFR (Non- 69.1 77.0 BUN/Creatinine Ratio 14.7 10.3 10-20 Random Glucose 95 120 70-99 mg/dl Calcium Level 8.4 8.7 8.5-10.1 mg/dl Assessment & Plan Kirill Salmeron is a 42 year old man with history of ascending aortic aneurysm repair with mechanical aortic valve placement (on coumadin) admitted with acute perforated appendicitis, now POD 1 s/p laparoscopic appendectomy. There were no complications, patient tolerated the procedure well. Continues to have leukocytosis this morning to 19 (slightly decreased from yesterday morning). INR 2.0. -Advance to regular diet today -Pain control as needed -Continue IVF hydration -Continue IV Antibiotics - cipro / flagyl -Cardiology following, appreciate recommendations. Will resume [employer] Coumadin this morning and allow INR to drift back up. No need for bridge per recommendations. -SCDs, prophylactic lovenox this morning -Drain to bulb suction - drain care, monitor outputs; ok to remove prior to discharge -Likely discharge some time this weekend. Dr. Sofia covering this weekend. Cristy Chacon MD 09/19/17
[2017-09-19 08:04] VITALS: BP 120/68; PULSE 82; TEMP 36.9; O2SAT 96
[2017-09-19 08:22] VITALS: O2SAT 96
[2017-09-19] MEDS: ENOXAPARIN 40 MG/0.4 ML SYR SQ SCH (08:47)
[2017-09-19] MEDS: CLONAZEPAM 1 MG TAB PO SCH ×3 (08:47→20:49)
[2017-09-19] MEDS: GABAPENTIN 600 MG TAB PO SCH ×3 (08:48→20:40)
[2017-09-19] MEDS: ESCITALOPRAM OXALATE 20 MG TAB PO SCH (08:48)
[2017-09-19] MEDS: TOPIRAMATE 100 MG TAB PO SCH ×2 (08:48→20:40)
[2017-09-19] MEDS: METHYLPHENIDATE HCL 10 MG TAB PO SCH ×2 (08:55→20:49)
--- NOTE | 2017-09-19 10:27 | Discharge Instructions ---
Discharge Instructions Date of Service Sep 19, 2017. Admission Reason for Admission: Acute Appendicitis, Rlq Abdominal Pain Discharge Discharge Diagnosis / Problem: same Discharge Goals Goal(s): Decrease discomfort, Improve function Activity Recommendations Activity Limitations: as noted below No heavy lifting over 10 pounds for 2 weeks no strenuous activity until cleared by surgeon No submerging incisions underwater for 2 weeks (no bathing, swimming, or hot tubs) No driving while taking narcotic pain medication or until you are pain free Instructions / Follow-Up Instructions / Follow-Up You may shower in 24 hours, and then remove dressings. Keep steri strips on incisions for 7 days and then remove. They may fall off on their own that is okay. Walking and light activity is encouraged Follow-up in surgical office in 1-2 weeks, please call office at [phone] to make an appointment Current Hospital Diet Patient's current hospital diet: Regular Diet Discharge Diet Recommended Diet: Regular Diet Procedures Procedures Performed: Laparoscopic Appendectomy Pending Studies Studies pending at discharge: yes List of pending studies: Appendix pathology will be reveiwed at follow up visit Medical Emergencies . Who to Call and When: Medical Emergencies: If at any time you feel your situation is an emergency, please call 911 immediately. . Non-Emergent Contact Non-Emergency issues call your: Primary Care Provider, Surgeon Call Non-Emergent contact if: you have a fever, temperature is above 101, your pain is not controlled, your pain is worsening, your pain is unusual for you, wound has increased drainage, wound has increased redness, wound has increased pain . "Provider Documentation" section prepared by Azucena Edmond. . VTE Core Measure Inpt VTE Proph given/why not?: SCD's [place] Drug Monitoring Program Search Results: patient reviewed within database
[2017-09-19] MEDS ORDERED: TRAMADOL HCL 50 MG TAB PO PRN (11:30)
[2017-09-19 11:49] VITALS: BP 132/78; PULSE 82; TEMP 36.8; O2SAT 99
--- NOTE | 2017-09-19 12:37 | Cardiology Follow-Up ---
Subjective Date of Service: Sep 19, 2017. Pt evaluation today including: conversation w/ patient, physical exam History of Present Illness Patient is feeling much better today. His abdominal pain has improved significantly. He has been tolerating a regular diet and even drank some coffee. He has had a bowel movement as well. Social History Smoking Status: Current Every Day Smoker History of Alcohol Use: No Objective Vital Signs Past 12 Hours Date Time Temp Pulse Resp B/P (MAP) Pulse Ox O2 Delivery O2 Flow Rate FiO2 09/19/17 11:49 36.8 82 18 132/78 (96) 99 Room Air 09/19/17 08:22 96 Room Air 09/19/17 08:04 36.9 82 22 120/68 (85) 96 Room Air 09/19/17 08:00 Room Air 09/19/17 03:24 36.7 77 16 116/65 (82) 96 Room Air Last Recorded Weight-Kilograms: 96.300 Physical Exam The patient is alert and oriented. Mood and affect appeared normal. He did appear uncomfortable and mildly sedated. He answered all questions appropriately. HEENT: Pupils are equal and reactive to light and accommodation. Extraocular movements are intact. The sclerae are anicteric. Neuro: Cranial nerves intact Cardiac: Heart rhythm is regular. S2 is crisp. Data Laboratory Results: Last 24 Hours Test 09/18/17 15:02 09/19/17 06:36 Prothrombin Time 21.3 SECONDS 21.9 SECONDS Prothromb Time International Ratio 1.9 2.0 White Blood Count 19.31 K/uL Red Blood Count 4.29 M/uL Hemoglobin 13.0 g/dL Hematocrit 39.4 % Mean Corpuscular Volume 91.8 fL Mean Corpuscular Hemoglobin 30.3 pg Mean Corpuscular Hemoglobin Concent 33.0 g/dl Platelet Count 195 K/uL Mean Platelet Volume 10.1 fL Neutrophils (%) (Auto) 88.6 % Lymphocytes (%) (Auto) 4.8 % Monocytes (%) (Auto) 6.2 % Eosinophils (%) (Auto) 0.0 % Basophils (%) (Auto) 0.1 % Neutrophils # (Auto) 17.12 K/uL Lymphocytes # (Auto) 0.93 K/uL Monocytes # (Auto) 1.19 K/uL Eosinophils # (Auto) 0.00 K/uL Basophils # (Auto) 0.01 K/uL RDW Standard Deviation 45.6 fL RDW Coefficient of Variation 13.6 % Immature Granulocyte % (Auto) 0.3 % Immature Granulocyte # (Auto) 0.06 K/uL Sodium Level 136 mmol/L Potassium Level 3.4 mmol/L Chloride Level 104 mmol/L Carbon Dioxide Level 24 mmol/L Anion Gap 8.0 mmol/L Blood Urea Nitrogen 12 mg/dl Creatinine 1.17 mg/dl Est Creatinine Clear Calc Drug Dose 95.1 ml/min Estimated GFR () 89.2 Estimated GFR (Non- 77.0 BUN/Creatinine Ratio 10.3 Random Glucose 120 mg/dl Calcium Level 8.7 mg/dl Assessment and Plan 1. Aortic valve disease: He did well with his surgery yesterday and has had a significant improvement in his symptoms. He did receive 1 unit of FFP and some vitamin K the night prior. His INR was 2 today. He has resumed his warfarin. I think we can continue his usual outpatient regimen of warfarin targeting a goal INR of 2.5. At the time of discharge she will need to follow up with his monitoring service [facility]. Does report having been noncompliant with monitoring in the recent past.
[2017-09-19] MEDS ORDERED: TRAM-10 PO (13:45)
[2017-09-19] MEDS ORDERED: POTASSIUM CHLORIDE 20 MEQ TABCR PO STA (14:07)
--- NOTE | 2017-09-19 14:11 | Hospitalist Progress Note ---
Hospitalist Progress Note Date of Service Sep 19, 2017. (Delfina Andino CRNP) Subjective Pt evaluation today including: conversation w/ patient, physical exam, chart review, lab review, review of inpatient medication list Mr. Salmeron has some pain in his lower abdomen under incision site but he overall is feeling better. He has some mild nausea but was able to eat breakfast. BM this morning. ROS Constitutional: no chills, aches, sweats or fever Respiratory: no sob,cough, sputum, or wheezing Cardiac: no chest pain, palpitations, edema, orthopnea or lightheadedness GI: see HPI : no dysuria or hesitancy Extremities: no joint pain or weakness Skin: no rash (Delfina Andino CRNP) Medications Medications Administered Medications (Trade) Dose Ordered Sig/Alondra Route Start Time Stop Time Status Last Admin Dose Admin Morphine Sulfate (MoRPHine SULFATE INJ) 4 mg NOW STAT IV 09/17/17 11:48 09/17/17 11:55 DC 09/17/17 12:44 4 MG Lactated Ringer's 1,000 ml @ 999 mls/hr Q1H1M ONCE IV 09/17/17 12:00 09/17/17 13:00 DC 09/17/17 12:40 999 MLS/HR Sodium Chloride 1,000 ml @ 75 mls/hr [id number] IV 09/17/17 17:00 10/17/17 14:44 09/19/17 08:55 125 MLS/HR Ciprofloxacin/ Dextrose 400 mg/ Prmx 200 ml @ 100 mls/hr Q12H IV 09/17/17 18:00 09/27/17 14:44 09/19/17 05:30 100 MLS/HR Metronidazole 500 mg/Prmx 100 ml @ 100 mls/hr Q8H IV 09/17/17 17:00 09/27/17 14:44 09/19/17 08:47 100 MLS/HR Morphine Sulfate (MoRPHine SULFATE INJ) 1 mg Q1HWA PRN IV 09/17/17 15:00 10/01/17 14:44 09/18/17 23:22 1 MG Morphine Sulfate (MoRPHine SULFATE INJ) 2 mg Q1HWA PRN IV 09/17/17 15:00 10/01/17 14:44 09/18/17 09:24 2 MG Phytonadione (Mephyton Tab) 2.5 mg NOW STAT PO 09/17/17 17:21 09/17/17 17:26 DC 09/17/17 18:20 2.5 MG Bupivacaine HCl (Marcaine 0.5% MPF Inj) 30 ml STK-MED ONCE .ROUTE 09/18/17 15:32 09/18/17 15:33 DC 09/18/17 15:32 20 ML Lidocaine HCl (Xylocaine 1% Inj (Local)) 20 ml STK-MED ONCE .ROUTE 09/18/17 15:33 09/18/17 15:34 DC 09/18/17 15:33 20 ML Bacitracin (Bacitracin Oint) 45 appln STK-MED ONCE .ROUTE 09/18/17 17:34 09/18/17 17:35 DC 09/18/17 17:34 45 APPLN Clonazepam (Klonopin Tab) 1 mg TID PO 09/18/17 21:00 10/18/17 20:59 09/19/17 13:50 1 MG Escitalopram Oxalate (Lexapro Tab) 20 mg QAM PO 09/19/17 09:00 10/19/17 08:59 09/19/17 08:48 20 MG Gabapentin (Neurontin Tab) 1,200 mg TID PO 09/18/17 21:00 10/18/17 20:59 09/19/17 13:50 1,200 MG Methylphenidate HCl (Ritalin Tab) 20 mg BID PO 09/18/17 21:00 10/02/17 20:59 09/19/17 08:55 20 MG Topiramate (Topamax Tab) 200 mg BID PO 09/18/17 21:00 10/18/17 20:59 09/19/17 08:48 200 MG Oxycodone HCl (Roxicodone Immediate Rel Tab) 10 mg Q4 PRN PO 09/18/17 18:15 10/02/17 18:14 09/19/17 09:35 10 MG Enoxaparin Sodium (Lovenox Inj) 40 mg QAM SQ 09/19/17 09:00 10/19/17 08:59 09/19/17 08:47 40 MG (Delfina Andino CRNP) Objective Vital Signs Date Time Temp Pulse Resp B/P (MAP) Pulse Ox O2 Delivery O2 Flow Rate FiO2 09/19/17 11:49 36.8 82 18 132/78 (96) 99 Room Air 09/19/17 08:22 96 Room Air 09/19/17 08:04 36.9 82 22 120/68 (85) 96 Room Air 09/19/17 08:00 Room Air 09/19/17 03:24 36.7 77 16 116/65 (82) 96 Room Air 09/18/17 23:25 Room Air 09/18/17 22:50 36.7 68 16 101/61 (74) 95 Room Air 09/18/17 21:47 37.0 69 16 98/59 (72) 95 Room Air 09/18/17 20:56 37.3 69 18 113/64 (80) 93 Room Air 09/18/17 19:52 37.1 82 20 124/66 (85) 95 Room Air 09/18/17 19:50 Room Air 09/18/17 19:22 36.8 73 18 124/70 (88) 90 Room Air 09/18/17 18:45 37.3 80 16 112/67 (82) 91 Nasal Cannula 2.0 09/18/17 18:45 91 Nasal Cannula 2.0 09/18/17 18:35 37.7 78 16 109/65 94 Nasal Cannula 2 09/18/17 18:25 71 16 105/65 95 Nasal Cannula 2 09/18/17 18:15 72 16 115/63 98 Oxymask 10 09/18/17 18:05 72 16 120/59 97 Oxymask 10 09/18/17 17:58 36.7 73 16 124/69 96 Oxymask 10 09/18/17 14:40 37.7 79 18 115/59 95 (Delfina Andino, AYANNA) Physical Exam Notes: General: no distress Eyes: normal inspection, PERLL Respiratory: chest non tender, clear to auscultation, normal breath sounds, no respiratory distress, no accessory muscle use Cardiac: regular rate and rhythm, no rub or gallop, no murmur, no edema, no jvd GI/: active bowel sounds, no abd pain or tenderness, soft, non distended Extremities: normal range of motion, normal strength, non tender Neuro/Psych: alert and oriented x 3, normal mood and affect Skin: normal color, dry (Delfina Andino CRNP) Laboratory Results Last 24 Hours Test 09/18/17 15:02 09/19/17 06:36 Prothrombin Time 21.3 SECONDS 21.9 SECONDS Prothromb Time International Ratio 1.9 2.0 White Blood Count 19.31 K/uL Red Blood Count 4.29 M/uL Hemoglobin 13.0 g/dL Hematocrit 39.4 % Mean Corpuscular Volume 91.8 fL Mean Corpuscular Hemoglobin 30.3 pg Mean Corpuscular Hemoglobin Concent 33.0 g/dl Platelet Count 195 K/uL Mean Platelet Volume 10.1 fL Neutrophils (%) (Auto) 88.6 % Lymphocytes (%) (Auto) 4.8 % Monocytes (%) (Auto) 6.2 % Eosinophils (%) (Auto) 0.0 % Basophils (%) (Auto) 0.1 % Neutrophils # (Auto) 17.12 K/uL Lymphocytes # (Auto) 0.93 K/uL Monocytes # (Auto) 1.19 K/uL Eosinophils # (Auto) 0.00 K/uL Basophils # (Auto) 0.01 K/uL RDW Standard Deviation 45.6 fL RDW Coefficient of Variation 13.6 % Immature Granulocyte % (Auto) 0.3 % Immature Granulocyte # (Auto) 0.06 K/uL Sodium Level 136 mmol/L Potassium Level 3.4 mmol/L Chloride Level 104 mmol/L Carbon Dioxide Level 24 mmol/L Anion Gap 8.0 mmol/L Blood Urea Nitrogen 12 mg/dl Creatinine 1.17 mg/dl Est Creatinine Clear Calc Drug Dose 95.1 ml/min Estimated GFR () 89.2 Estimated GFR (Non- 77.0 BUN/Creatinine Ratio 10.3 Random Glucose 120 mg/dl Calcium Level 8.7 mg/dl (Delfina Andino CRNP) Assessment and Plan 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 He has a history of ascending aortic aneurysm with subsequent aortic root and aortic valve replacement with mechanical valve in 2007. Abdominal trauma/appendicitis on CT - lap appe 09/18. - reversal of INR with FFP per primary team - pain control - monitor post op cbc/ prp Mechanical aortic valve - coumadin restarted per primary team - INR 2.0 this morning Hypokalemia - repleated Full code DVT prophylaxis - coumadin. (Delfina Andino ., AYANNA) Attending Attestation: Pt seen/examined, chart reviewed, care plan d/w AYANNA Andino. I agree w/ the edouard components of her documentation. Pt with +stool, +flatus, and good pain control. No chest pain or dyspnea. Tolerating diet. VSS gen - nad heart - RRR, mech valve closure sound lungs - CTA b/l abd - soft, mild incisional tenderness, BS+, dressings in place ext - no edema A/P: 1. s/p lap appy for perforated appendicitis 2. mechanical valve with chronic coumadin usage - agree with resumption of coumadin at pre-hospital dose; daily AM INR 3. leukocytosis - 2nd to #1 - repeat CBC am will follow Lor BELL MD (Andrea Bell MD)
[2017-09-19 15:28] VITALS: BP 130/72; PULSE 90; TEMP 36.8; O2SAT 98
[2017-09-19] MEDS ORDERED: WARFARIN SOD 5 MG TAB PO SCH (16:00)
[2017-09-19 23:14] VITALS: BP 129/76; PULSE 86; TEMP 36.5; O2SAT 98
[2017-09-20] MEDS: METRONIDAZOLE / NSS 500 MG in PREMIXED NSS 100 ML IV SCH ×2 (00:41→08:17)
[2017-09-20] MEDS: OXYCODONE HCL IR 5 MG TAB (IMMEDIATE RELEASE) PO PRN ×2 (00:48→06:45)
[2017-09-20] MEDS: CIPROFLOXACIN / D5W 400 MG in PREMIXED IN D5W 200 ML IV SCH (06:03)
[2017-09-20 07:02] LABS: HEMATOCRIT 37.9 % (42-52); MEAN CELL VOLUME 90.2 fL (80-100); MEAN CORPUSCULAR HEMOGLOBIN 29.8 pg (25-34); MEAN PLATELET VOLUME 10.2 fL (7.4-10.4); PLATELET COUNT 221 K/uL (130-400); WHITE BLOOD COUNT 15.49 K/uL (4.8-10.8)
[2017-09-20 07:16] LABS: INR 2.1 (0.9-1.1); PROTHROMBIN TIME (PATIENT) 23.4 SECONDS (9.0-12.0)
[2017-09-20 07:24] VITALS: BP 122/73; PULSE 76; TEMP 36.6; O2SAT 100
[2017-09-20 07:26] LABS: BUN/CREATININE RATIO 12.1 (10-20); CREATININE 1.07 mg/dl (0.60-1.40); POTASSIUM 3.7 mmol/L (3.5-5.1)
[2017-09-20] MEDS: METHYLPHENIDATE HCL 10 MG TAB PO SCH (08:17)
[2017-09-20] MEDS: CLONAZEPAM 1 MG TAB PO SCH (08:17)
[2017-09-20] MEDS: ESCITALOPRAM OXALATE 20 MG TAB PO SCH (08:18)
[2017-09-20] MEDS: TOPIRAMATE 100 MG TAB PO SCH (08:18)
[2017-09-20] MEDS: GABAPENTIN 600 MG TAB PO SCH (08:18)
[2017-09-20] MEDS: ENOXAPARIN 40 MG/0.4 ML SYR SQ SCH (08:19)
--- NOTE | 2017-09-20 08:34 | Surgery Progress Note ---
Surgery Progress Note Date of Service Sep 20, 2017. Subjective Post OP Day: 2 + feeling well, + flatus (Passing alot of gas per patient.), + diet (tolerating regular diet. States he ate chicken and waffles earlier with AM without problems ), No nausea, No vomiting afebrile, urinating without problems. States pain is controlled on PO meds. Denies fever, chills, severe abdominal pain. Would like to go home. Denies no complains with NICHOLAS in place. + BM yesterday. Objective Vital Signs: Date Time Temp Pulse Resp B/P (MAP) Pulse Ox O2 Delivery O2 Flow Rate FiO2 09/20/17 07:24 36.6 76 18 122/73 (89) 100 Room Air 09/20/17 00:15 Room Air 09/19/17 23:14 36.5 86 16 129/76 (93) 98 Room Air 09/19/17 16:15 Room Air 09/19/17 15:28 36.8 90 18 130/72 (91) 98 Room Air 09/19/17 11:49 36.8 82 18 132/78 (96) 99 Room Air 09/19/17 08:22 96 Room Air Physical Exam: NICHOLAS drainage (30 ml this am, 210 yesterday.), urine output (1675 ml this AM) General Appearance: WD/WN, no apparent distress Head: normocephalic, atraumatic Neck: supple, trachea midline Abdomen: normal bowel sounds, non distended, soft, no organomegaly, + tenderness (generalized TTP) Incision(s): clean, dry, intact, no erythema, no drainage Laboratory Results: Results Past 24 Hours Test 09/20/17 06:30 Range/Units White Blood Count 15.49 4.8-10.8 K/uL Red Blood Count 4.20 4.7-6.1 M/uL Hemoglobin 12.5 14.0-18.0 g/dL Hematocrit 37.9 42-52 % Mean Corpuscular Volume 90.2 80-100 fL Mean Corpuscular Hemoglobin 29.8 25-34 pg Mean Corpuscular Hemoglobin Concent 33.0 32-36 g/dl RDW Standard Deviation 45.3 36.4-46.3 fL RDW Coefficient of Variation 13.6 11.5-14.5 % Platelet Count 221 130-400 K/uL Mean Platelet Volume 10.2 7.4-10.4 fL Prothrombin Time 23.4 9.0-12.0 SECONDS Prothromb Time International Ratio 2.1 0.9-1.1 Sodium Level 139 136-145 mmol/L Potassium Level 3.7 3.5-5.1 mmol/L Chloride Level 108 98-107 mmol/L Carbon Dioxide Level 26 21-32 mmol/L Anion Gap 5.0 3-11 mmol/L Blood Urea Nitrogen 13 7-18 mg/dl Creatinine 1.07 0.60-1.40 mg/dl Est Creatinine Clear Calc Drug Dose 104.0 ml/min Estimated GFR () 99.4 Estimated GFR (Non- 85.8 BUN/Creatinine Ratio 12.1 10-20 Random Glucose 123 70-99 mg/dl Calcium Level 9.0 8.5-10.1 mg/dl Diagnostic Interpretation: Last 24 Hours Test 09/20/17 06:30 White Blood Count 15.49 K/uL Red Blood Count 4.20 M/uL Hemoglobin 12.5 g/dL Hematocrit 37.9 % Mean Corpuscular Volume 90.2 fL Mean Corpuscular Hemoglobin 29.8 pg Mean Corpuscular Hemoglobin Concent 33.0 g/dl RDW Standard Deviation 45.3 fL RDW Coefficient of Variation 13.6 % Platelet Count 221 K/uL Mean Platelet Volume 10.2 fL Prothrombin Time 23.4 SECONDS Prothromb Time International Ratio 2.1 Sodium Level 139 mmol/L Potassium Level 3.7 mmol/L Chloride Level 108 mmol/L Carbon Dioxide Level 26 mmol/L Anion Gap 5.0 mmol/L Blood Urea Nitrogen 13 mg/dl Creatinine 1.07 mg/dl Est Creatinine Clear Calc Drug Dose 104.0 ml/min Estimated GFR () 99.4 Estimated GFR (Non- 85.8 BUN/Creatinine Ratio 12.1 Random Glucose 123 mg/dl Calcium Level 9.0 mg/dl Assessment & Plan POD # 2 s/p laparoscopic appendectomy due to perforated appendicitis doing well, still some mild pain, + BM, urinating without trouble, No N/V, tolerating regular diet, Nicholas drain in place. Patient would like to go home. Restarted his Coumadin last night. INR normalizing - 2.1 this AM - cardiology is following, their input has been appreciated. Recommended that patient stay until tomorrow but he would like to leave today. Will remove NICHOLAS drain prior to D/C Patient will be discharged today, f/u with [facility] general surgery clinic in 1-2 weeks per instructions on discharge. He will be sent home on Cipro and Flagyl PO x 7 days. Patient needs to follow with his monitoring service to coumadin management as an outpatient. Instructed to seek care if he develops fever, chills, severs abdominal pain, nausea, vomiting or the inability to move his bowels. Patient seen and examined, agree with above. S/P lap appendectomy for perforated appendicitis, WBC downtrending, feeling better. He is very anxious to go home. Will remove drain, d/c today on oral abx x 7 days, follow up with Dr. Chacon in [facility] gen surg. return precautions given. Colette Sofia, DO regular diet remove drain
[2017-09-20 09:08] VITALS: BP 122/73; PULSE 76; TEMP 36.6; O2SAT 100
[2017-09-20] MEDS ORDERED: CPR500 PO (10:09)
[2017-09-20] MEDS ORDERED: METR-163 PO (10:09)
--- NOTE | 2017-09-20 10:13 | Progress Note ---
Subjective Date of Service: Sep 20, 2017. Subjective Pt evaluation today including: conversation w/ patient, physical exam, chart review, lab review Pain: abdominal but controlled PO Intake: eating well Voiding: no voiding problems feels good anxious to go home no new complaints Problem List Medical Problems: (1) Abrasion Status: Acute (2) Altered mental status Status: Acute (3) CHI (closed head injury) Status: Acute (4) Closed head injury with brief loss of consciousness Status: Acute (5) Laceration of tongue Status: Acute (6) Migraine Status: Acute (7) Right lower quadrant abdominal pain Status: Acute Review of Systems Respiratory: No shortness of breath Cardiac: No chest pain Abdomen: + pain, No nausea, No vomiting, No constipation Objective Vital Signs Date Time Temp Pulse Resp B/P (MAP) Pulse Ox O2 Delivery O2 Flow Rate FiO2 09/20/17 09:08 36.6 76 18 100 Room Air 09/20/17 08:20 Room Air 09/20/17 07:24 36.6 76 18 122/73 (89) 100 Room Air 09/20/17 00:15 Room Air 09/19/17 23:14 36.5 86 16 129/76 (93) 98 Room Air 09/19/17 16:15 Room Air 09/19/17 15:28 36.8 90 18 130/72 (91) 98 Room Air 09/19/17 11:49 36.8 82 18 132/78 (96) 99 Room Air Physical Exam General Appearance: no apparent distress ENT: pharynx normal Neck: no JVD Respiratory/Chest: lungs clear, no respiratory distress, no accessory muscle use, + decreased breath sounds (bases) Cardiovascular: regular rate, rhythm, no gallop, no murmur, + pertinent finding (mechanical valve closure sound present) Abdomen: normal bowel sounds, soft, no organomegaly, + pertinent finding ( incisional tenderness over the multiple incisions) Extremities: no pedal edema Neurologic/Psychiatric: alert, oriented x 3 Skin: + pertinent finding (dressings - abd wall - clean) Laboratory Results Last 24 Hours Test 09/20/17 06:30 White Blood Count 15.49 K/uL Red Blood Count 4.20 M/uL Hemoglobin 12.5 g/dL Hematocrit 37.9 % Mean Corpuscular Volume 90.2 fL Mean Corpuscular Hemoglobin 29.8 pg Mean Corpuscular Hemoglobin Concent 33.0 g/dl RDW Standard Deviation 45.3 fL RDW Coefficient of Variation 13.6 % Platelet Count 221 K/uL Mean Platelet Volume 10.2 fL Prothrombin Time 23.4 SECONDS Prothromb Time International Ratio 2.1 Sodium Level 139 mmol/L Potassium Level 3.7 mmol/L Chloride Level 108 mmol/L Carbon Dioxide Level 26 mmol/L Anion Gap 5.0 mmol/L Blood Urea Nitrogen 13 mg/dl Creatinine 1.07 mg/dl Est Creatinine Clear Calc Drug Dose 104.0 ml/min Estimated GFR () 99.4 Estimated GFR (Non- 85.8 BUN/Creatinine Ratio 12.1 Random Glucose 123 mg/dl Calcium Level 9.0 mg/dl Assessment and Plan 42yo male - 1. s/p lap appy for perforated appendicitis - doing well from surgical standpoint. d/c home on cipro/flagyl x 7 days each. f/u with surgery as directed by them 2. mechanical valve with chronic coumadin usage - INR 2.1 today. Coumadin 15mg daily. INR in coumadin clinic in 3-4 days. 3. leukocytosis - 2nd to #1 - resolving nicely. No fever or infectious symptoms. from medical standpoint can d/c home f/u PCP 1 week
== END 2017-09-20 10:08 | disposition home or self-care (01) | DRG 340 ==
LOC: C.EDB 11:34 → C.MSW 14:51 → ENRESERV 15:31
PROVIDERS: ADMIT Student in an Organized Health Care Education/Training Program; ATTEND Student in an Organized Health Care Education/Training Program
PROC: 0DTJ4ZZ Resection of Appendix, Percutaneous Endoscopic Approach (ICD-10-PCS; principal; 2017-09-18 11:15)
DX: K35.2 Acute appendicitis with generalized peritonitis (principal); S39.91XA Unspecified injury of abdomen, initial encounter; E87.6 Hypokalemia; F17.200 Nicotine dependence, unspecified, uncomplicated; Z79.899 Other long term (current) drug therapy; Z79.01 Long term (current) use of anticoagulants; Z95.2 Presence of prosthetic heart valve; W20.8XXA Other cause of strike by thrown, projected or falling object, initial encounter; Y92.89 Other specified places as the place of occurrence of the external cause; Y99.8 Other external cause status

== ENCOUNTER 2018-01-08 14:01 | Inpatient (IN) | payer OTHER ==
[~2018-01-08] VITALS: Ht 172.7 cm; Wt 81.6 kg
[~2018-01-08 14:01] MED LIST changes: -ATV/1 PO; -B-COTAB53 PO; +CLON1TAB PO; +CPR500 PO; -CYM/30 PO; -ENOX80IN SQ; +ESCI1TAB18 PO; -GABA600T PO; +KRATOM PO; -MAGN400T6 PO; +METR-163 PO; -PALI6TAB PO; +RTL20 PO; -TIZA4CAP PO; -TOPI200T14 PO; +TRAM-10 PO; -ZOLP5TAB PO
[2018-01-08 14:06] VITALS: O2SAT 96
--- NOTE | 2018-01-08 14:49 | EMERGENCY ROOM VISIT NOTE ---
History Report prepared by Landon: Jamar Cordero Under the Supervision of: Dr. Jian Tamayo M.D. First contact with patient: 14:27 Chief Complaint: MENTAL HEALTH EVALUATION Stated Complaint: MENTAL HEALTH History of Present Illness The patient is a 42 year old male who presents to the Emergency Room for a mental health evaluation. The psychiatric registered nurse hh case manager states the patient has been admitted before for his mental health history. The patient reports he was in an argument with his registered nurse hh case manager this morning because she told [place] police he was over reacting about someone talking about him. He notes he offered his registered nurse hh case manager an SD card with proof that someone was talking about him. The patient states she denied the SD card, and at that point he dismissed [facility] from his personal care. He reports he denies active suicidal ideations, homicidal ideations, and auditory hallucinations. The patient notes he has had a history of auditory hallucinations, but he knows the difference between real people and his hallucinations. He states he was hospitalized two years ago and discharged on probation. The patient reports his probation ended, and he was finally free to go out in public. He notes he obtained a girlfriend and received financial aid advisor to continue his education. The patient states his constant anxiety started increasing a few months ago when his girlfriend committed suicide. He reports he is having trouble dealing with her loss. The patient notes his cell phone was hacked, his number was changed, and he is no longer able to use. He states [employer] confirmed the hack, but they could not disclose who it was or how it happened. The patient reports he also went through his firewall files and discovered his financial information was hacked by 8 people in his apartment complex. He notes the lady down the hallway, whom is stated to be a heroin user , was talking about breaking into his apartment and stealing his belongings. The patient states he overheard her talking, and her conversation is on the SD card that his registered nurse hh case manager denied. The patient reports he is currently under a large amount of anxiety. He also denies fever, cough, congestion, alcohol use, missing his medication, and taking lithium. The patient notes he uses marijuana once a week. He states he drinks his own blood after drawing it with a syringe. 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 He notes he is aware of how it is not okay or safe to drink his own blood. The patient states he does not want to stay, and he will not come in voluntarily. He reports he will appeal a 302 warrant if it is created. The patient notes he has a history of schizoaffective disorder and anxiety. Source of History: patient, other (psychiatric registered nurse hh case manager) Onset: a few months ago Position: other (global) Quality: other (anxiety) Timing: constant Associated Symptoms: No fevers, No cough Note: Denies: suicidal ideations, homicidal ideation, auditory hallucinations, congestion, alcohol use, missing his medication, and taking lithium Review of Systems See HPI for pertinent positives and negatives. A total of ten systems were reviewed and were otherwise negative. Past Medical & Surgical Medical Problems: (1) Aortic aneurysm (2) Schizoaffective disorder Surgical Problems: (1) H/O aortic aneurysm repair (2) Heart valve replaced Family History Patient reports no known family medical history. Social History Smoking Status: Current Every Day Smoker Alcohol Use: occasionally Drug Use: marijuana Marital Status: in relationship Housing Status: lives with family Occupation Status: unemployed Current/Historical Medications Scheduled B-Complex W/ Folic Acid (B Complex), 1 TAB PO QAM Escitalopram Oxalate (Lexapro), 20 MG PO QAM Gabapentin (Neurontin), 1,200 MG PO TID Methylphenidate HCl (Ritalin), 20 MG PO TID Paliperidone (Invega), 6 MG PO QAM Topiramate (Topamax), 200 MG PO BID Warfarin Sodium (Coumadin), 5 MG PO TID [Kratom], 3 GM PO UD Scheduled PRN Clonazepam (Klonopin), 1 MG PO TID PRN for Anxiety/Agitation Tizanidine (Zanaflex), 1-2 TABS PO Q6-8H PRN for Migraine Zolpidem Tartrate (Ambien), 10 MG PO HS PRN for Sleep Allergies Coded Allergies: NSAIDs (Verified Allergy, Unknown, CANNOT TAKE WHILE ON COUMADIN, 01/08/18) Propranolol (Verified Adverse Reaction, Intermediate, Bradycardia, 01/08/18) Physical Exam Vital Signs Date Time Temp Pulse Resp B/P (MAP) Pulse Ox O2 Delivery O2 Flow Rate FiO2 01/08/18 14:06 36.5 69 148/86 96 Room Air Physical Exam GENERAL: Awake, alert, well-appearing, in no distress HENT: Normocephalic, atraumatic. Poor dentition. Dry mucus membranes. Oropharynx otherwise unremarkable EYES: Normal conjunctiva. Sclera non-icteric. NECK: Supple. No nuchal rigidity. FROM. No JVD. RESPIRATORY: Clear to auscultation. CARDIAC: Regular rate, normal rhythm. end-systolic click. Extremities warm and well perfused. Pulses equal. ABDOMEN: Soft, non-distended. No tenderness to palpation. No rebound or guarding. No masses. RECTAL: Deferred. MUSCULOSKELETAL: Chest examination reveals no tenderness. The back is symmetrical on inspection without obvious abnormality. There is no CVA tenderness to palpation. No joint edema. LOWER EXTREMITIES: Calves are equal size bilaterally and non-tender. No edema. No discoloration. NEURO: Normal sensorium. No sensory or motor deficits noted. SKIN: No rash or jaundice noted. PSYCHIATRIC: Colorful affect. Positive delusions and hallucination. He denies SI and HI. Medical Decision & Procedures Laboratory Results 01/08/18 15:19 Red Blood Count 4.90, Mean Corpuscular Volume 85.7, Mean Corpuscular Hemoglobin 28.6, Mean Corpuscular Hemoglobin Concent 33.3, Mean Platelet Volume 9.7, Neutrophils (%) (Auto) 51.3, Lymphocytes (%) (Auto) 34.1, Monocytes (%) (Auto) 9.4, Eosinophils (%) (Auto) 4.6, Basophils (%) (Auto) 0.6, Neutrophils # (Auto) 2.55, Lymphocytes # (Auto) 1.70, Monocytes # (Auto) 0.47, Eosinophils # (Auto) 0.23, Basophils # (Auto) 0.03 01/08/18 15:19 Test 01/08/18 15:09 01/08/18 15:19 Urine Color DK YELLOW Urine Appearance CLOUDY (CLEAR) Urine pH 6.5 (4.5-7.5) Urine Specific [place] 1.021 (1.000-1.030) Urine Protein NEG (NEG) Urine Glucose (UA) NEG (NEG) Urine Ketones TRACE (NEG) Urine Occult Blood NEG (NEG) Urine Nitrite NEG (NEG) Urine Bilirubin NEG (NEG) Urine Urobilinogen NEG (NEG) Urine Leukocyte Esterase NEG (NEG) Urine WBC (Auto) 1-5 /hpf (0-5) Urine RBC (Auto) 0-4 /hpf (0-4) Urine Hyaline Casts (Auto) 10-30 /lpf (0-5) Urine Epithelial Cells (Auto) 20-30 /lpf (0-5) Urine Bacteria (Auto) NEG (NEG) Urine Opiates Screen NEG (NEG) Urine Methadone, Qualitative NEG (NEG) Urine Barbiturates NEG (NEG) Urine Phencyclidine (PCP) Level NEG (NEG) Ur Amphetamine/Methamphetamine NEG (NEG) MDMA (Ecstasy) Screen NEG (NEG) Urine Benzodiazepines Screen POS (NEG) Urine Cocaine Metabolite NEG (NEG) Urine Marijuana (THC) POS (NEG) White Blood Count 4.98 K/uL (4.8-10.8) Red Blood Count 4.90 M/uL (4.7-6.1) Hemoglobin 14.0 g/dL (14.0-18.0) Hematocrit 42.0 % (42-52) Mean Corpuscular Volume 85.7 fL (80-100) Mean Corpuscular Hemoglobin 28.6 pg (25-34) Mean Corpuscular Hemoglobin Concent 33.3 g/dl (32-36) Platelet Count 243 K/uL (130-400) Mean Platelet Volume 9.7 fL (7.4-10.4) Neutrophils (%) (Auto) 51.3 % Lymphocytes (%) (Auto) 34.1 % Monocytes (%) (Auto) 9.4 % Eosinophils (%) (Auto) 4.6 % Basophils (%) (Auto) 0.6 % Neutrophils # (Auto) 2.55 K/uL (1.4-6.5) Lymphocytes # (Auto) 1.70 K/uL (1.2-3.4) Monocytes # (Auto) 0.47 K/uL (0.11-0.59) Eosinophils # (Auto) 0.23 K/uL (0-0.5) Basophils # (Auto) 0.03 K/uL (0-0.2) RDW Standard Deviation 44.8 fL (36.4-46.3) RDW Coefficient of Variation 14.4 % (11.5-14.5) Immature Granulocyte % (Auto) 0.0 % Immature Granulocyte # (Auto) 0.00 K/uL (0.00-0.02) Prothrombin Time 44.8 SECONDS (9.0-12.0) Prothromb Time International Ratio 4.4 (0.9-1.1) Anion Gap 7.0 mmol/L (3-11) Estimated GFR () 128.6 Estimated GFR (Non- 111.0 BUN/Creatinine Ratio 11.8 (10-20) Calcium Level 9.5 mg/dl (8.5-10.1) Total Bilirubin 0.4 mg/dl (0.2-1) Direct Bilirubin 0.1 mg/dl (0-0.2) Aspartate Amino Transf (AST/SGOT) 20 U/L (15-37) Alanine Aminotransferase (ALT/SGPT) 18 U/L (12-78) Alkaline Phosphatase 63 U/L (45-117) Total Protein 7.6 gm/dl (6.4-8.2) Albumin 3.6 gm/dl (3.4-5.0) Globulin 4.0 gm/dl (2.5-4.0) Albumin/Globulin Ratio 0.9 (0.9-2) Thyroid Stimulating Hormone (TSH) 1.030 uIu/ml (0.300-4.500) Ethyl Alcohol mg/dL < 3.0 mg/dl (0-3) Laboratory results reviewed by me Medications Administered Medications (Trade) Dose Ordered Sig/Alondra Route Start Time Stop Time Status Last Admin Dose Admin Olanzapine (Zyprexa Zydis Od Tab) 10 mg NOW STAT PO 01/08/18 15:55 01/08/18 15:57 DC 01/08/18 15:55 10 MG ECG Per My Interpretation Indication: other (Mental Health evaluation) Rate (beats per minute): 64 Rhythm: normal sinus Findings: RBBB (incomplete), no acute ischemic change, other (Right axis deviation.) Comparison ECG Date: 07/09/16 Change: [place] has changed. Otherwise it is similar to previous. ED Course 1431: The patient was evaluated in room A08. A complete history and physical exam was performed. 1610: The patient is medically cleared. 1703: The patient was accept to a psychiatric facility. Medical Decision I reviewed the patient's past medical history, medications, and the nursing notes as described above. Differential diagnosis: Etiologies such as mood disorder, infection, hypoglycemia, electrolyte abnormalities, cardiac sources, intracerebral event, toxicologic, neurologic, as well as others were entertained. The patient is a 42-year-old gentleman with a past medical history of mechanical AVR on coumadin and schizoaffective disorder with prior psychiatric admissions for paranoid delusions and concerns for his and the safety of others now presents emergency department after being seen by his outpatient providers who again are concerned for worsening of his psychiatric condition where he reports paranoid delusions and intermittent belligerent thoughts of "willing to protect himself if needed" per HPI. On arrival, the patient expresses these paranoid delusions where he says his neighbor down the melgar wants to kill him and robbed his apartment and his entire apartment building is hacking his computer, as well as someone hacking his cell phone. The patient is adamant he has proof of this. Patient also expresses willingness to physically defend himself if intact. When I attempted to explain to the patient how these thoughts are concerning he denied any possibility that these could be delusions and was adamant that this was true. Given the grandiose nature of these thoughts I concur with the concern of the outpatient providers who submitted a 302 petition. The patient did have an elevated INR however no evidence of bleeding and so his subsequent Coumadin dose can be held. Otherwise, labs were unremarkable and the patient was medically cleared. 302 was signed given the patient's lack of cooperation with the evaluation. Patient is accepted to [facility] [address] for further management. Medication Reconcilliation Current Medication List: was personally reviewed by me Blood Pressure Screening Patient's blood pressure: Elevated blood pressure Blood pressure disposition: Referred to PCP Impression Primary Impression: Paranoid delusion Scribe Attestation The scribe's documentation has been prepared under my direction and personally reviewed by me in its entirety. I confirm that the note above accurately reflects all work, treatment, procedures, and medical decision making performed by me. Departure Information Dispostion [facility] Acute Care Referrals Yeny Henderson M.D. (PCP) Patient Instructions My [facility]
[2018-01-08] MEDS ORDERED: PALI6TAB PO (14:51)
[2018-01-08] MEDS ORDERED: GABA600T PO (14:51)
[2018-01-08] MEDS ORDERED: TIZA4CAP PO (14:51)
[2018-01-08] MEDS ORDERED: B-COTAB53 PO (14:51)
[2018-01-08] MEDS ORDERED: ZOLP5TAB PO (14:51)
[2018-01-08 15:49] LABS: BASO % 0.6 %; BASO ABS # 0.03 K/uL (0-0.2); EOS % 4.6 %; EOS ABS # 0.23 K/uL (0-0.5); LYMPH % 34.1 %; MEAN CELL VOLUME 85.7 fL (80-100); MEAN CORPUSCULAR HEMOGLOBIN 28.6 pg (25-34); MEAN CORPUSCULAR HGB CONC 33.3 g/dl (32-36); MEAN PLATELET VOLUME 9.7 fL (7.4-10.4); MONO % 9.4 %; MONO ABS # 0.47 K/uL (0.11-0.59); NEUT % 51.3 %; NEUT ABS # 2.55 K/uL (1.4-6.5); PLATELET COUNT 243 K/uL (130-400); RED CELL DISTRIBUTION WIDTH CV 14.4 % (11.5-14.5); RED CELL DISTRIBUTION WIDTH SD 44.8 fL (36.4-46.3); WHITE BLOOD COUNT 4.98 K/uL (4.8-10.8)
[2018-01-08 15:50] LABS: INR 4.4 (0.9-1.1)
[2018-01-08 15:53] LABS: ALBUMIN 3.6 gm/dl (3.4-5.0); ALT/SGPT 18 U/L (12-78); BLOOD UREA NITROGEN 9 mg/dl (7-18); CALCIUM 9.5 mg/dl (8.5-10.1); CARBON DIOXIDE 23 mmol/L (21-32); GLUCOSE 87 mg/dl (70-99); POTASSIUM 3.5 mmol/L (3.5-5.1); SODIUM 139 mmol/L (136-145)
[2018-01-08] MEDS ORDERED: OLANZAPINE ZYDIS 10 MG ORALLY DIS. TAB PO STA (15:55)
[2018-01-08 16:04] LABS: ALKALINE PHOSPHATASE 63 U/L (45-117); AST/SGOT 20 U/L (15-37); TOTAL PROTEIN 7.6 gm/dl (6.4-8.2)
[2018-01-08] MEDS ORDERED: BISMUTH SUBSALICYLATE PER ML OMNICELL CHARGE PO PRN (17:30)
[2018-01-08] MEDS ORDERED: HALOPERIDOL LACTATE 5 MG/ML 1 ML VIAL IM PRN (17:30)
[2018-01-08] MEDS ORDERED: ALUMINUM/MAGNESIUM SUSP 30 ML UDC PO PRN (17:30)
[2018-01-08] MEDS ORDERED: HALOPERIDOL 5 MG TAB PO PRN (17:30)
[2018-01-08] MEDS ORDERED: hydrOXYzine HCL 25 MG TAB PO PRN ×2 (17:30)
[2018-01-08] MEDS ORDERED: CLONAZEPAM 1 MG TAB PO PRN (17:30)
[2018-01-08] MEDS ORDERED: ZOLPIDEM TARTRATE 5 MG TAB PO PRN (17:30)
[2018-01-08] MEDS ORDERED: SODIUM CHLORIDE 0.65% NA SOLN 45 ML (OCEAN) PRN (17:30)
[2018-01-08] MEDS ORDERED: MAGNESIUM HYDROXIDE SUSP 30 ML UDC PO PRN (17:30)
[2018-01-08] MEDS ORDERED: ACETAMINOPHEN 325 MG TAB PO PRN (17:30)
[2018-01-08] MEDS ORDERED: NICOTINE POLACRILEX 2 MG GUM MT PRN (17:30)
[2018-01-08] MEDS: WARFARIN SOD 7.5 MG TAB PO SCH (18:30)
[2018-01-08 19:33] VITALS: BP 127/80; PULSE 76; TEMP 36.5; BMI 27.4
[2018-01-08] MEDS: TOPIRAMATE 100 MG TAB PO SCH (21:33)
[2018-01-08] MEDS: GABAPENTIN 600 MG TAB PO SCH (21:34)
[2018-01-08] MEDS ORDERED: TOPI200T14 PO (22:47)
[2018-01-09 06:42] VITALS: BP_SYST 117; BP_SYST 131; BP_DIAS 66; BP_DIAS 87; PULSE 59; PULSE 68; TEMP 37.1
[2018-01-09] MEDS ORDERED: PALIPERIDONE 3 MG TABCR PO SCH (09:00)
[2018-01-09] MEDS: ESCITALOPRAM OXALATE 20 MG TAB PO SCH (09:16)
[2018-01-09] MEDS: TOPIRAMATE 100 MG TAB PO SCH ×2 (09:16→21:31)
[2018-01-09] MEDS: GABAPENTIN 600 MG TAB PO SCH ×3 (09:16→21:31)
[2018-01-09] MEDS: NICOTINE 21 MG/24 HR TDSY TD SCH (09:17)
[2018-01-09] MEDS ORDERED: PALIPERIDONE 3 MG TABCR PO ONE (10:15)
--- NOTE | 2018-01-09 10:47 | Psychiatric History & Physical ---
History Date of Service Jan 09, 2018. Identifying Data Kirill Salmeron is a 42-year-old male admitted involuntarily on Jan 08, 2018 at 17: 04 after being brought to the emergency room on a 302 warrant due to extreme paranoia and depression having attempted suicide by injecting himself with stimulants several days ago. Information is gathered from the patient and considered to be reliable. Chief Complaint "I got into a fight with my psychotherapist social worker.". History of Present Illness This is a 42-year-old gentleman known to our unit from previous hospitalization in 2016, diagnoses schizoaffective disorder bipolar type, panic disorder and cluster B personality traits. He is currently under the outpatient psychiatric care of , sees therapist Haleigh Gordillo, and has a case management rn, Katt Morrow. According to the 302 petition her statement made out by Katt Morrow, the patient has been demonstrating increased paranoia and delusions. He is hearing voices that people are out to get him, is believing that his accounts of been hacked, is not sleeping, eating, not taking his mental health medications. She indicates he is self-medicating with marijuana and Kratom. He was acting bizarrely, asking Helens come to his apartment to witness burglaries, and to listen to illegal audiotapes. He became agitated when she told him she could not do those things. She observed knives on his person and reports that he recently purchased guns 2 weeks ago. She notes he has a history of assaultive behaviors and self injury, was stockpiling knives, machetes, guns and survival supplies. These stressors have increased in the last 45 days since the of his girlfriend by suicide, and her family is now making allegations against the patient with [facility] regarding her children. According to the patient, he says that the admission was precipitated by a fight with Katt. He absolutely believes that he has extraordinary hearing that allows him to hear conversations several apartments down the hallway. He believes that he is hearing people plotting against him and that all of his electronics have been hacked. He believes that he has seen a specific router that was placed on his Internet that allows other people to access his electronic devices and says that he has filed a complaint with the police who have come and witnessed it. He insists that "I know the difference between reality and hallucinations" and insists that his experiences are real. He admits that his primary stress is that of the of his girlfriend at the end of November. He loved her, wanted to be with her and has been grieving since. He feels guilty and responsible for her as he said "horrible things" to her during an argument at the time of her . He had gone so far as to tell her to kill herself. Her parents have also been accusing him of being the cause of her in addition to the [employer] complaints. His girlfriend had 2 children, a son in an daughter, who are in the custody of other people. These were not his children. He does not believe that his reactions and thoughts are in anyway related to grief or stress. He wants to be able to take a hearing test to demonstrate his extraordinary hearing capability so that others will believe him. He believes these other people of stolen money from his bank account, contends that money is actually missing and says that he is gone to the bank to change access to his account so that only he can withdraw money, only in person and with identification. This means, that when his rent is due on January 12, no one will be able to pay for him and he fears he will be evicted from his apartment. Today the patient is extremely distressed and tearful. He reports grieving, feeling depressed and having suicidal ideation. He admits that he injected himself with Ritalin several days ago in a suicide attempt which only succeeded in putting him to sleep. He reports that his sleep is generally disturbed since her , having both difficulty falling asleep as well as staying asleep. His appetite has been down, and he reports a 20 pound weight loss since her . His anxiety is high, experiencing panic attacks daily, usually triggered when he thinks about people watching him. He contends that he is not having hallucinations that these conversations he hears are real. He has a long history of cutting and burning himself but currently denies any open wounds. His arms are covered in tattoos. He reports that he has had some high phases of his illness that include spending behaviors, hearing voices. His last manic episode was years ago. He also admits to other odd behaviors including withdrawing his own blood, using it for art or consuming it. He laughs when I ask him about this and simply describes it as an oddity. He admits that he is feeling overwhelmed today and does not remember a lot of his history. Past Psychiatric History Current OP Treatment: psychiatrist (Dr. Zamudio), therapist (Haleigh Gordillo), case management rn (Katt Martinez) Prior Psych Hospitalizations: [facility], other (multiple hospitalizations in [place]) Access to a Gun: Yes Suicide Attempts: Yes Past Medication Trials Dowell, Seroquel, Risperdal, Wellbutrin, Neurontin, Topamax, Invega Sustenna Past Medical/Surgical History (1) Polyneuropathy (2) Migraines (3) H/O aortic aneurysm repair (4) Heart valve replaced Allergies Allergies: Coded Allergies: NSAIDs (Verified Allergy, Unknown, CANNOT TAKE WHILE ON COUMADIN, 01/08/18) Propranolol (Verified Adverse Reaction, Intermediate, Bradycardia, 01/08/18) Home Medications Scheduled B-Complex W/ Folic Acid (B Complex), 1 TAB PO QAM Escitalopram Oxalate (Lexapro), 20 MG PO QAM Gabapentin (Neurontin), 1,200 MG PO TID Methylphenidate HCl (Ritalin), 20 MG PO TID Paliperidone (Invega), 6 MG PO QAM Topiramate (Topamax), 200 MG PO BID Warfarin Sodium (Coumadin), 5 MG PO TID [Kratom], 3 GM PO UD Scheduled PRN Clonazepam (Klonopin), 1 MG PO TID PRN for Anxiety/Agitation Tizanidine (Zanaflex), 1-2 TABS PO Q6-8H PRN for Migraine Zolpidem Tartrate (Ambien), 10 MG PO HS PRN for Sleep Family History Patient reports no known family medical history. History of Suicide: Yes (uncle and brother) History of Substance Abuse: Yes (everybody) Psychiatric History: Yes (everybody) Alcohol Use Alcohol Use In Past 12 Months: No AUDIT Total Score: 0 Smoking Use Smoking Status: Current Every Day Smoker 1 pack per day Substance History Currently he admits only to smoking marijuana. In the past he has done "everything" including opiates, K2. He denies he's ever been in treatment for substance use. Legal charges in the past include possession of heroin years ago when he was caught in the car with other people with heroin Personal History [place] Childhood: Grew up in [place]. Raised by mother and father until they . He went to live with his mother. He had 3 brothers, one suicided. 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 He is not currently on probation or parole.) Psychological Trauma History: Significant Loss Review of Systems Constitutional: denies no symptoms reported, denies see HPI, denies chills, denies diaphoresis, denies fever, denies malaise, denies weakness, denies other Eyes: denies: no symptoms, as stated in HPI, eye pain, tearing, itching, redness, discharge, double vision, visual changes, blurred vision, photophobia, other ENT: denies: no symptoms reported, see HPI, ear pain, ear discharge, loss of hearing, tinnitus, nasal pain, nasal congestion, rhinorrhea, epistaxis, sore throat, stidor, throat swelling, mouth pain, mouth swelling, dental pain, gum swelling, other Cardiovascular: denies: no symptoms reported, see HPI, chest pain, chest tightness, chest pressure, diaphoresis, palpitations, syncope, other Respiratory: denies: no symptoms reported, see HPI, cough, orthopnea, short of breath, stridor, wheezing, sputum production, cyanosis, VALDOVINOS, PND, other Gastrointestinal: denies no symptoms reported, denies see HPI, denies abdominal pain, denies constipation, denies diarrhea, denies nausea, denies vomiting, denies other Genitourinary - Male: denies: no symptoms, see HPI, rash, amenorrhea, penile itching, penile discharge, testicular pain, testicular swelling, impotence, other Musculoskeletal: other (neck and shoulder pain rated 3-4 out of 10) Integumentary: other (multiple visible tattoos on both arms) Neurologic: reports: other (reports polyneuropathy but denies numbness or tingling today) Endocrine: denies: no symptoms, as stated in HPI, cold intolerance, heat intolerance, hair changes, goiter, polydipsia, polyuria, skin changes, other Hematologic / Lymphatic: denies: no symptoms, as stated in HPI, abnormal clotting, adenopathy, anemia, easy bleeding, easy bruising, gums bleeding, petechiae, other Examination Physical Examination Exam performed by Dr. mckinney in the emergency Department has been reviewed and accepted his medical clearance for our unit Vital Signs Vital Signs Past 12 Hours Date Time Temp Pulse Resp B/P (MAP) Pulse Ox O2 Delivery O2 Flow Rate FiO2 01/09/18 06:42 37.1 59 20 117/66 68 131/87 Laboratory Results Last 24 Hours Test 01/08/18 15:09 01/08/18 15:19 Urine Color DK YELLOW Urine Appearance CLOUDY Urine pH 6.5 Urine Specific [place] 1.021 Urine Protein NEG Urine Glucose (UA) NEG Urine Ketones TRACE Urine Occult Blood NEG Urine Nitrite NEG Urine Bilirubin NEG Urine Urobilinogen NEG Urine Leukocyte Esterase NEG Urine WBC (Auto) 1-5 /hpf Urine RBC (Auto) 0-4 /hpf Urine Hyaline Casts (Auto) 10-30 /lpf Urine Epithelial Cells (Auto) 20-30 /lpf Urine Bacteria (Auto) NEG Urine Opiates Screen NEG Urine Methadone, Qualitative NEG Urine Barbiturates NEG Urine Phencyclidine (PCP) Level NEG Ur Amphetamine/Methamphetamine NEG MDMA (Ecstasy) Screen NEG Urine Benzodiazepines Screen POS Urine Cocaine Metabolite NEG Urine Marijuana (THC) POS White Blood Count 4.98 K/uL Red Blood Count 4.90 M/uL Hemoglobin 14.0 g/dL Hematocrit 42.0 % Mean Corpuscular Volume 85.7 fL Mean Corpuscular Hemoglobin 28.6 pg Mean Corpuscular Hemoglobin Concent 33.3 g/dl Platelet Count 243 K/uL Mean Platelet Volume 9.7 fL Neutrophils (%) (Auto) 51.3 % Lymphocytes (%) (Auto) 34.1 % Monocytes (%) (Auto) 9.4 % Eosinophils (%) (Auto) 4.6 % Basophils (%) (Auto) 0.6 % Neutrophils # (Auto) 2.55 K/uL Lymphocytes # (Auto) 1.70 K/uL Monocytes # (Auto) 0.47 K/uL Eosinophils # (Auto) 0.23 K/uL Basophils # (Auto) 0.03 K/uL RDW Standard Deviation 44.8 fL RDW Coefficient of Variation 14.4 % Immature Granulocyte % (Auto) 0.0 % Immature Granulocyte # (Auto) 0.00 K/uL Prothrombin Time 44.8 SECONDS Prothromb Time International Ratio 4.4 Sodium Level 139 mmol/L Potassium Level 3.5 mmol/L Chloride Level 109 mmol/L Carbon Dioxide Level 23 mmol/L Anion Gap 7.0 mmol/L Blood Urea Nitrogen 9 mg/dl Creatinine 0.80 mg/dl Estimated GFR () 128.6 Estimated GFR (Non- 111.0 BUN/Creatinine Ratio 11.8 Random Glucose 87 mg/dl Calcium Level 9.5 mg/dl Total Bilirubin 0.4 mg/dl Direct Bilirubin 0.1 mg/dl Aspartate Amino Transf (AST/SGOT) 20 U/L Alanine Aminotransferase (ALT/SGPT) 18 U/L Alkaline Phosphatase 63 U/L Total Protein 7.6 gm/dl Albumin 3.6 gm/dl Globulin 4.0 gm/dl Albumin/Globulin Ratio 0.9 Thyroid Stimulating Hormone (TSH) 1.030 uIu/ml Ethyl Alcohol mg/dL < 3.0 mg/dl Mental Examination During interview pt is: alert and oriented, cooperative Appearance: appropriately groomed, other (bilateral arms covered with tattoos) Eye contact is: good Motor behavior is: psychomotor agitation (expressing distress by running his hands through his hair) Speech: normal in rate, rhythm & volume Affect: tearful Mood is: depressed Thought process: goal directed Thought content: paranoid, delusions Suicidal thought are: present, Plan: present, Intent: present (attempted to overdose by injecting Ritalin several days ago) Homicidal thoughts are: denied Hallucinations: auditory (hears voices telling him that he is unsafe), denies visual Cognition: attention grossly intact, language grossly intact Intelligence estimated to be: average Insight: severely impaired Judgement: severely impaired Impression / Recommendations Impression 42-year-old gentleman with known schizoaffective affective disorder bipolar type , admitted involuntarily due to severe and worsening paranoia and depression. He admits to trying to kill himself several days ago, and is clearly floridly psychotic believing he can hear people talking about him and that his accounts and electronics have been hacked. He has no insight right now into his symptoms but thankfully is willing for medication adjustments. We will begin by increasing his in [place] to 9 mg daily. He is giving somewhat conflicting reports about his Klonopin usage, telling me he hasn't been taking it lately, telling the staff that he takes it every day 3 times a day. During the immediate phase of his hospitalization I think it would benefit him to have access to some Klonopin but will eventually need to be discontinued in view of chronic substance use. I am less concerned about the possibility of a withdrawal seizure given the fact that he is on 3600 mg of Neurontin daily. We will need to coordinate with his current providers, clarify his Coumadin dosing as he came in with a supratherapeutic INR of 4.4. We will do daily INRs as we adjust. He is here involuntarily and we will need to decide by Friday whether to file for a 303 and at this point that looks likely. At this time, the patient requires inpatient mental health treatment due to the risk of harm to self and others. Inventory Assets Strengths: Level of his family, willingness to have medications adjusted Needs: To abstain from abusable substances and Kratom Risk Factors Assessment Male: Yes : Yes /single/: Yes Higher / Fall in social status: No Access to guns: Yes Health problems: Yes Mental Health Diagnoses: Yes Substance use disorders: Yes Previous attempt: Yes Previous attempt;highly lethal: Yes Previous psychiatric stay: Yes Hopelessness: Yes Smoker: Yes Protective Factors Assessment Jainism beliefs: Yes : No Responsible for young children: No Employed: No Stable relationships: No Supportive family: Yes Good rapport with provider: Yes Recommendations (1) Schizoaffective disorder, bipolar type 3/2 - Increase Invega to 9 mg daily. Patient does not want to receive Invega Sustenna - Will continue Klonopin 1 mg daily when necessary since he is so agitated with his current exacerbation but will eventually need to be discontinued in view of substance use - Continue Lexapro 20 mg daily given that his mood is currently depressed - Continue Neurontin 1200 mg 3 times a day which is likely giving us some mood stabilization in addition to treatment for his polyneuropathy - Discontinue Ritalin 20 mg 3 times a day in view of recent suicide attempt, and psychosis. There is high Concerned that this is also likely to be abused and should be reconsidered by his outpatient psychiatrist - We'll discontinue Ambien at at bedtime also in view of substance use history - -Obtain outpatient records from Dr. Zamudio, and coordinate care with current providers - Every 15 minute checks for safety - Reality orientation - Encourage participation in group and individual counseling - Family meeting if indicated - The patient is here on a 302 commitment. Will need to continue to gather information toward the need for further inpatient treatment - FLP and FBS tomorrow for monitoring on atypicals (2) Cannabis use disorder, moderate, dependence 3/2 - Recommend abstinence - Consider substance use treatment post discharge (3) Polyneuropathy 3/2 - Continue outpatient dosing of Neurontin - Will discontinue Zanaflex in view of history of substance abuse (4) Heart valve replaced 3/2 - INR supratherapeutic on admission. Will order daily PT/INRs and adjust dosing accordingly -Per patient, goal ranges 2.3-3.5 - Confirm with current PCP or co[facility] clinic what his current dosing is Dr. Charleen Brand has personally been involved in the review of this case and development of recommendations. CPT Code Initial Hospital Care: 64169
[2018-01-09 14:50] LABS: INR 2.1 (0.9-1.1)
[2018-01-09] MEDS: WARFARIN SOD 7.5 MG TAB PO SCH (16:22)
[2018-01-09 21:28] VITALS: BP 107/61; PULSE 60
[2018-01-10 01:48] VITALS: Ht 172.7 cm; Wt 81.6 kg
[2018-01-10 07:02] VITALS: BP_SYST 115; BP_SYST 133; BP_DIAS 75; BP_DIAS 82; PULSE 66; PULSE 75; TEMP 36.3
[2018-01-10 07:31] LABS: INR 1.8 (0.9-1.1)
[2018-01-10] MEDS: PALIPERIDONE 3 MG TABCR PO SCH (08:14)
[2018-01-10] MEDS: ESCITALOPRAM OXALATE 20 MG TAB PO SCH (08:15)
[2018-01-10] MEDS: GABAPENTIN 600 MG TAB PO SCH ×3 (08:15→21:35)
[2018-01-10] MEDS: TOPIRAMATE 100 MG TAB PO SCH ×2 (08:15→21:35)
[2018-01-10] MEDS: NICOTINE 21 MG/24 HR TDSY TD SCH (08:16)
[2018-01-10] MEDS: CLONAZEPAM 1 MG TAB PO PRN (10:28)
--- NOTE | 2018-01-10 12:17 | Psychiatric Progress Notes ---
Progress Note Date of Service Jan 10, 2018. Chief Complaint "I'm just really sad and I have all this other stuff going on too ". Subjective Patient was seen & assessed interval progress reviewed with Treatment Team. Patient appeared grossly psychotic and bereavement at admission and invega increased by 3 mg. As it was unclear how much clonazepam he had been taking at home he was continued as 1 mg daily when necessary only. He received that this morning 1. His 302 will on Friday. He is on a medically necessary private room secondary to the degree of his psychosis and history of violence. Supratherapeutic INR down to 1.8 today. Patient is extremely emotionally dressed on interview, weeping, and expresses a wish to trade places with his girlfriend who took her own life in late November. He describes that she had had multiple overdose attempts in the recent past however, on the night that she took her own life, they have had a fight and he told her to go ahead and kill herself. He describes feeling extreme remorse and guilt about this. "Now I'm going to have to live with this for the rest of my life." He is missing her greatly. He again acknowledges that the injection of Ritalin was a suicide attempt and he continues to feel that he would be better off but does describe feeling safe on the unit and denies any active plans to hurt himself while in the hospital. He describes a multitude of paranoid delusions including being hacked and monitored in his home. He believes he had been on N invega 9 mg in the past and it was reduced several months ago because he was doing well at his request. He indicates that his use of the clonazepam has been variable. Review of Systems Constitutional: No fever Cardiovascular: No chest pain Psychiatric: + problem reported (guilt and regret) Integumentary: No new/changing skin lesions Sleep Information Total Hours of Sleep: 8.25 Meal Information Percent of Breakfast Consumed: 100 Percent of Lunch Consumed: 100 Percent of Dinner Consumed: 100 Mental Status Exam During interview pt is: alert and oriented, cooperative Appearance: appropriately groomed, other (bilateral arms covered with tattoos) Eye contact is: good Motor behavior is: psychomotor agitation (expressing distress by running his hands through his hair, rubbing palms on thighs) Speech: normal in rate, rhythm & volume Affect: tearful, constricted Mood is: depressed Thought process: goal directed, perseveration Thought content: paranoid, delusions Suicidal thought are: present, Plan: denied, Intent: denied Homicidal thoughts are: denied Hallucinations: auditory, denies visual Cognition: attention grossly intact, language grossly intact Intelligence estimated to be: average Insight: severely impaired Judgement: severely impaired Impression 42-year-old gentleman with known schizoaffective affective disorder bipolar type , admitted involuntarily due to severe and worsening paranoia and depression. He admits to trying to kill himself several days ago, and is clearly floridly psychotic believing he can hear people talking about him and that his accounts and electronics have been hacked. He has no insight right now into his symptoms but thankfully is willing for medication adjustments. We will need to decide by Friday whether to file for a 303 which appears likely to be necessary. At this time, the patient requires inpatient mental health treatment due to the risk of harm to self and others. Plan (1) Schizoaffective disorder, bipolar type 3/2 - Increase Invega to 9 mg daily. Patient does not want to receive Invega Sustenna - Will continue Klonopin 1 mg daily when necessary since he is so agitated with his current exacerbation but will eventually need to be discontinued in view of substance use - Continue Lexapro 20 mg daily given that his mood is currently depressed - Continue Neurontin 1200 mg 3 times a day which is likely giving us some mood stabilization in addition to treatment for his polyneuropathy - Discontinue Ritalin 20 mg 3 times a day in view of recent suicide attempt, and psychosis. There is high Concerned that this is also likely to be abused and should be reconsidered by his outpatient psychiatrist - We'll discontinue Ambien at at bedtime also in view of substance use history - -Obtain outpatient records from Dr. Zamudio, and coordinate care with current providers - Every 15 minute checks for safety - Reality orientation - Encourage participation in group and individual counseling - Family meeting if indicated - The patient is here on a 302 commitment. Will need to continue to gather information toward the need for further inpatient treatment - FLP and FBS tomorrow for monitoring on atypicals 3/3 - continue increased dose of invega at 9mg daily - remains psychotic with severely impaired insight - fasting lipids and gluc wnl - will temp increase klonopin prn to 1mg po bid secondary to level of emotional duress duress (2) Cannabis use disorder, moderate, dependence 3/2 - Recommend abstinence - Consider substance use treatment post discharge (3) Polyneuropathy 3/2 - Continue outpatient dosing of Neurontin - Will discontinue Zanaflex in view of history of substance abuse (4) Heart valve replaced 3/2 - INR supratherapeutic on admission. Will order daily PT/INRs and adjust dosing accordingly -Per patient, goal ranges 2.3-3.5 - Confirm with current PCP or coag clinic what his current dosing is 3/3 - INR 2.1 yesterday and received home dose of coumadin - INR 1.8 today and will receive coumadin - continue daily PT/INR Dr. Charleen Brand has personally been involved in the review of this case and development of recommendations. Discharge / Aftercare Planning Primary Care Physician: Name: SADIE Blackman Therapist: Name: Haleigh [facility] Rag Boiler: Name: Katt Martinez Visit Code E&M Code: 20195 Inventory Assets Strengths: Level of his family, willingness to have medications adjusted Needs: To abstain from abusable substances and Kratom Risk Factors Assessment Male: Yes : Yes /single/: Yes Higher / Fall in social status: No Health problems: Yes Mental Health Diagnoses: Yes Substance use disorders: Yes Previous attempt: Yes Previous attempt;highly lethal: Yes Previous psychiatric stay: Yes Hopelessness: Yes Smoker: Yes Protective Factors Assessment Mosque beliefs: Yes : No Responsible for young children: No Employed: No Stable relationships: No Supportive family: Yes Good rapport with provider: Yes Data Vital Signs Last 24 Hrs: Date Time Temp Pulse Resp B/P (MAP) Pulse Ox O2 Delivery O2 Flow Rate FiO2 01/10/18 07:02 36.3 66 16 133/82 75 115/75 01/09/18 21:28 60 107/61 Meds Administered Last 24 Hrs: Meds Administered (Past 24Hrs) Medications (Trade) Dose Ordered Sig/Alondra Route Start Time Stop Time Status Last Admin Dose Admin Olanzapine (Zyprexa Zydis Od Tab) 10 mg NOW STAT PO 01/08/18 15:55 01/08/18 15:57 DC 01/08/18 15:55 10 MG Hydroxyzine HCl (Vistaril Tab) 25 mg Q4H PRN PO 01/08/18 17:30 02/07/18 17:29 01/10/18 11:51 25 MG Nicotine (Nicoderm Cq 21MG Patch) 1 patch QAM TD 01/09/18 09:00 02/08/18 08:59 01/10/18 08:16 1 PATCH Clonazepam (Klonopin Tab) 1 mg TID PRN PO 01/08/18 17:30 01/09/18 10:02 DC 01/09/18 09:19 1 MG Escitalopram Oxalate (Lexapro Tab) 20 mg QAM PO 01/09/18 09:00 02/08/18 08:59 01/10/18 08:15 20 MG Gabapentin (Neurontin Tab) 1,200 mg TID PO 01/08/18 22:00 02/07/18 21:59 01/10/18 08:15 1,200 MG Topiramate (Topamax Tab) 200 mg BID PO 01/08/18 22:00 02/07/18 21:59 01/10/18 08:15 200 MG Warfarin Sodium (Coumadin Tab) 15 mg DAILY@1600 PO 01/08/18 18:30 02/07/18 18:29 01/09/18 16:22 15 MG Paliperidone (Invega) 6 mg QAM PO 01/09/18 09:00 01/09/18 10:03 DC 01/09/18 09:16 6 MG Clonazepam (Klonopin Tab) 1 mg QD PRN PO 01/09/18 10:00 02/08/18 09:59 01/10/18 10:28 1 MG Paliperidone (Invega) 9 mg QAM PO 01/10/18 09:00 02/09/18 08:59 01/10/18 08:14 9 MG Paliperidone (Invega) 3 mg 1015 ONCE PO 01/09/18 10:15 01/09/18 10:16 DC 01/09/18 11:22 3 MG Lab Results Last 24 Hrs: Last 24 Hours Test 01/09/18 14:23 01/10/18 06:51 Prothrombin Time 21.9 SECONDS 18.6 SECONDS Prothromb Time International Ratio 2.1 1.8 Fasting Glucose 92 mg/dl Triglycerides Level 86 mg/dl Cholesterol Level 152 mg/dl HDL Cholesterol 42 mg/dl LDL Cholesterol, Calculated 93 mg/dl VLDL Cholesterol, Calculated 17 mg/dl Cholesterol/HDL Ratio 3.6
[2018-01-10] MEDS: WARFARIN SOD 7.5 MG TAB PO SCH (16:00)
[2018-01-11 07:01] VITALS: BP_SYST 106; BP_SYST 125; BP_DIAS 67; BP_DIAS 79; PULSE 63; PULSE 89; TEMP 36.3
[2018-01-11] MEDS: CLONAZEPAM 1 MG TAB PO PRN (07:08)
[2018-01-11] MEDS: PALIPERIDONE 3 MG TABCR PO SCH (08:07)
[2018-01-11] MEDS: ESCITALOPRAM OXALATE 20 MG TAB PO SCH (08:07)
[2018-01-11] MEDS: GABAPENTIN 600 MG TAB PO SCH ×3 (08:08→21:07)
[2018-01-11] MEDS: TOPIRAMATE 100 MG TAB PO SCH ×2 (08:08→21:07)
[2018-01-11] MEDS: NICOTINE 21 MG/24 HR TDSY TD SCH (08:09)
[2018-01-11] MEDS ORDERED: BuPROPion SR 100 MG TABCR PO STA (10:06)
--- NOTE | 2018-01-11 10:57 | Psychiatric Progress Notes ---
Progress Note Date of Service Jan 11, 2018. Chief Complaint "I'm not happy with you". Subjective Patient was seen & assessed interval progress reviewed with Treatment Team. Per staff the patient did not attend groups yesterday and refused at bedtime meds last night. He was angry that he was not made available an additional when necessary dose of clonazepam. On interview this morning, patient reports anger and feelings of distrust associated with this. Unfortunately it appears I did not increase the frequency of the clonazepam when necessary as we had discussed yesterday and I apologized to him for that. He seemed accepting. He now reports that he was taking the clonazepam regularly 3 times a day prior to hospitalization which is inconsistent with previous report. He was agreeable to changing clonazepam to a 0.25 mg 4 times a day when necessary dosing to increase his access throughout the day when feeling acutely emotionally overwhelmed but minimizing total dose. He appears a little more composed today but does become tearful and distraught when discussing his feelings of shame and guilt associated with his girlfriend suicide. He is less focused on his paranoid ideation at the apartment. Reviewed his treatment history and he reports historical benefit on Wellbutrin which she was taking back in 2015 when he was last year. He denies recollection of induction of ramón from antidepressant treatment in the past but does not believe that the SSRIs were of much benefit to him historically. Reviewed he does have a history of seizure disorder but no seizure in the last year and has been well controlled on Topamax and previously tolerated the Wellbutrin in this regard. Discussed with him that Wellbutrin does lower the seizure threshold however impact on seizure threshold is likely low below 150 mg daily dose. He was agreeable to another trial of this medication to see if we can help bolster his mood which may secondarily reduce his paranoia. Review of Systems Constitutional: + fatigue Neurologic: + problem reported (denies seizures for more than 1 year) Psychiatric: + problem reported (remains tearful) Sleep Information Total Hours of Sleep: 11.25 Meal Information Percent of Breakfast Consumed: 100 Percent of Lunch Consumed: 100 Percent of Dinner Consumed: 100 Mental Status Exam During interview pt is: alert and oriented, cooperative Appearance: appropriately groomed Eye contact is: good Motor behavior is: psychomotor retardation Speech: other (soft and slow) Affect: tearful, constricted, other (initially angry) Mood is: depressed Thought process: goal directed, perseveration Thought content: paranoid, delusions Suicidal thought are: present, Plan: denied, Intent: denied Homicidal thoughts are: denied Hallucinations: auditory, denies visual Cognition: attention grossly intact, language grossly intact Intelligence estimated to be: average Insight: severely impaired Judgement: severely impaired Impression 42-year-old gentleman with known schizoaffective affective disorder bipolar type , admitted involuntarily due to severe and worsening paranoia and depression. He admits to trying to kill himself several days ago, and is clearly floridly psychotic believing he can hear people talking about him and that his accounts and electronics have been hacked. He has no insight right now into his symptoms but thankfully is willing for medication adjustments. We will need to decide by Friday whether to file for a 303 which appears likely to be necessary. At this time, the patient requires inpatient mental health treatment due to the risk of harm to self and others. Plan (1) Schizoaffective disorder, bipolar type 3/2 - Increase Invega to 9 mg daily. Patient does not want to receive Invega Sustenna - Will continue Klonopin 1 mg daily when necessary since he is so agitated with his current exacerbation but will eventually need to be discontinued in view of substance use - Continue Lexapro 20 mg daily given that his mood is currently depressed - Continue Neurontin 1200 mg 3 times a day which is likely giving us some mood stabilization in addition to treatment for his polyneuropathy - Discontinue Ritalin 20 mg 3 times a day in view of recent suicide attempt, and psychosis. There is high Concerned that this is also likely to be abused and should be reconsidered by his outpatient psychiatrist - We'll discontinue Ambien at at bedtime also in view of substance use history - -Obtain outpatient records from Dr. Zamudio, and coordinate care with current providers - Every 15 minute checks for safety - Reality orientation - Encourage participation in group and individual counseling - Family meeting if indicated - The patient is here on a 302 commitment. Will need to continue to gather information toward the need for further inpatient treatment - FLP and FBS tomorrow for monitoring on atypicals 3/3 - continue increased dose of invega at 9mg daily - remains psychotic with severely impaired insight - fasting lipids and gluc wnl - will temp increase klonopin prn to 1mg po bid secondary to level of emotional duress duress 3/4 - start wellbutrin SR 100mg po qam for mood support. while a is acutely bereaved and we discussed limited utility of antidepressants in tx grief, his historical mood disorder does increase his risk for more severe and lasting depression. he does have a seizure hx so wellbutrin dosing will necessarily be very conservative. common risks and benefits were reviewed at length and pt verbalized understanding and agreed to retrial. - change klonopin to 0.5mg po qid prn (2) Cannabis use disorder, moderate, dependence 3/2 - Recommend abstinence - Consider substance use treatment post discharge (3) Polyneuropathy 3/2 - Continue outpatient dosing of Neurontin - Will discontinue Zanaflex in view of history of substance abuse (4) Heart valve replaced 3/2 - INR supratherapeutic on admission. Will order daily PT/INRs and adjust dosing accordingly -Per patient, goal ranges 2.3-3.5 - Confirm with current PCP or coag clinic what his current dosing is 3/3 - INR 2.1 yesterday and received home dose of coumadin - INR 1.8 today and will receive coumadin - continue daily PT/INR 3/4 - INR 2.[address] Charleen Brand has personally been involved in the review of this case and development of recommendations. Discharge / Aftercare Planning Primary Care Physician: Name: SADIE Blackman Therapist: Name: Haleigh eli Dike Sample Maker: Name: Katt Martinez Visit Code E&M Code: 83871 Inventory Assets Strengths: Level of his family, willingness to have medications adjusted Needs: To abstain from abusable substances and Kratom Risk Factors Assessment Male: Yes : Yes /single/: Yes Higher / Fall in social status: No Health problems: Yes Mental Health Diagnoses: Yes Substance use disorders: Yes Previous attempt: Yes Previous attempt;highly lethal: Yes Previous psychiatric stay: Yes Hopelessness: Yes Smoker: Yes Protective Factors Assessment Yarsani beliefs: Yes : No Responsible for young children: No Employed: No Stable relationships: No Supportive family: Yes Good rapport with provider: Yes Data Vital Signs Last 24 Hrs: Date Time Temp Pulse Resp B/P (MAP) Pulse Ox O2 Delivery O2 Flow Rate FiO2 01/11/18 07:01 36.3 63 16 125/79 89 106/67 Meds Administered Last 24 Hrs: Meds Administered (Past 24Hrs) Medications (Trade) Dose Ordered Sig/Alondra Route Start Time Stop Time Status Last Admin Dose Admin Paliperidone (Invega) 9 mg QAM PO 01/10/18 09:00 02/09/18 08:59 01/11/18 08:07 9 MG Bupropion HCl (Wellbutrin-Sr Tab) 100 mg NOW STAT PO 01/11/18 10:06 01/11/18 10:07 DC 01/11/18 10:29 100 MG Lab Results Last 24 Hrs: Last 24 Hours Test 01/11/18 07:07 Prothrombin Time 20.5 SECONDS Prothromb Time International Ratio 2.0
[2018-01-11] MEDS: CLONAZEPAM 0.5 MG TAB PO PRN ×2 (11:07→17:08)
[2018-01-11] MEDS: WARFARIN SOD 7.5 MG TAB PO SCH (15:54)
[2018-01-12 07:01] VITALS: BP_SYST 109; BP_SYST 111; BP_DIAS 63; BP_DIAS 70; PULSE 60; PULSE 79; TEMP 36.4
[2018-01-12] MEDS: CLONAZEPAM 0.5 MG TAB PO PRN ×2 (07:46→14:03)
[2018-01-12] MEDS: PALIPERIDONE 3 MG TABCR PO SCH (07:49)
[2018-01-12] MEDS: ESCITALOPRAM OXALATE 20 MG TAB PO SCH (07:51)
[2018-01-12] MEDS: GABAPENTIN 600 MG TAB PO SCH ×3 (07:52→21:35)
[2018-01-12] MEDS: BuPROPion SR 100 MG TABCR PO SCH (07:54)
[2018-01-12] MEDS: TOPIRAMATE 100 MG TAB PO SCH ×2 (07:55→21:35)
[2018-01-12] MEDS: NICOTINE 21 MG/24 HR TDSY TD SCH (07:58)
[2018-01-12 08:21] LABS: INR 2.2 (0.9-1.1)
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
[2018-01-12] MEDS: WARFARIN SOD 7.5 MG TAB PO SCH (15:54)
[2018-01-13] MEDS: CLONAZEPAM 0.5 MG TAB PO PRN ×2 (06:38→12:25)
[2018-01-13 06:58] VITALS: BP_SYST 112; BP_SYST 135; BP_DIAS 66; BP_DIAS 70; PULSE 65; PULSE 76; TEMP 36.3
[2018-01-13] MEDS: NICOTINE 21 MG/24 HR TDSY TD SCH (07:51)
[2018-01-13] MEDS: PALIPERIDONE 3 MG TABCR PO SCH (07:52)
[2018-01-13] MEDS: TOPIRAMATE 100 MG TAB PO SCH (07:52)
[2018-01-13] MEDS: ESCITALOPRAM OXALATE 20 MG TAB PO SCH (07:52)
[2018-01-13] MEDS: GABAPENTIN 600 MG TAB PO SCH (07:52)
[2018-01-13] MEDS: BuPROPion SR 100 MG TABCR PO SCH (07:52)
[2018-01-13 08:14] LABS: INR 2.4 (0.9-1.1)
[2018-01-13] MEDS ORDERED: NICO21DI4 TD (08:57)
[2018-01-13] MEDS ORDERED: WLLSR100 PO (08:57)
[2018-01-13] MEDS ORDERED: PALI3TAB PO (08:57)
--- NOTE | 2018-01-13 09:11 | Discharge Instructions ---
Discharge Information Report Includes Report will include the: Discharge Instructions & Summary Admission Admission Date / Time: Jan 08, 2018 at 17:04 Reason for Admission: Suicidal Ideation,Paranoid Delusions Discharge Discharge Diagnosis / Problem: Schizoaffective disorder Condition at Discharge: Fair Discharge Goals Goal(s): Decrease discomfort, Improve function, Improve disease control Activity Recommendations Activity Limitations: resume your previous activity . Instructions / Follow-Up Instructions / Follow-Up . SPECIAL CARE INSTRUCTIONS: 1. Follow through with your scheduled aftercare appointments. If unable to keep an appointment, please call to reschedule. 2. Take your medication only as prescribed. Medication should not be changed or stopped without the approval of your doctor. In the event of worsening symptoms or concerns about side effects, contact your doctor immediately. 3. Utilize new healthy coping skills, anger management skills, and stress management skills learned during your hospitalization. Journal feelings and process them with a support person. Identify stressors or situations that may result in relapse, deterioration or inappropriate behaviors and develop a plan to deal with those issues. 4. If your coping skills are ineffective and you are in crisis, contact your outpatient providers for direction. If unable to reach your providers, please call the CAN HELP LINE AT or go to the closest Emergency Room. 5. Avoid alcohol and un-prescribed drugs. 6. You have been provided with the Mental Health Advance Directives Pamphlet for your review. AFTERCARE APPOINTMENTS: * Please call your insurance company prior to your scheduled appointment to confirm your aftercare providers are covered. Take your insurance information to your appointments. . Discharge / Aftercare Planning Primary Care Physician: Name: SADIE Blackman Appointment Notes: As needed Psychiatrist: Name: Dr. Zamudio Date of Appointment: Jan 30, 2018 Time of Appointment: 9:15am Therapist: Name Of Therapist: Haleigh eli [place] Date of Appointment: Jan 14, 2018 Time of Appointment: 3pm Vice President Of Finance: Name: Natalie Capps Phone Number: [facility] Date of Appointment: Jan 15, 2018 Time of Appointment: 4pm Appointment Notes: She will meet you at 4pm at [facility] . Follow-Up Care Plan for Follow-Up Care: The patient will return to his previous outpatient providers. Current Hospital Diet Patient's current hospital diet: Regular Diet Discharge Diet Recommended Diet: Regular Diet Procedures Procedures Performed: No Pending Studies Pending Studies at Discharge: No Medical Emergencies . Who to Call and When: Medical Emergencies: For questions or emergencies related to your hospital stay, please contact the Inpatient Behavioral Health Unit at [phone]. A psychiatric secretary is on-call 02/06 for the Behavioral Health Unit for emergencies At any time you feel your situation is an emergency, you may also call 911 immediately. . Non-Emergent Contact Non-Emergency issues call your: Psychiatrist, Therapist Past History Medical & Surgical History: (1) Polyneuropathy (2) H/O aortic aneurysm repair Advance Directives Existing Advance Directive: No Do You Have an Existing Mental: No Existing Living Will: No Existing Power of [place] Manager: No Advance Directives Info Given: To Pt/S.O. Advance Directives Reason: Declines as Mental Health Visit. Discharge Summary Admission HPI Per the Admitting provider: This is a 42-year-old gentleman known to our unit from previous hospitalization in 2016, diagnoses schizoaffective disorder bipolar type, panic disorder and cluster B personality traits. He is currently under the outpatient psychiatric care of , sees therapist Haleigh Gordillo, and has a case management associate, Katt Morrow. According to the 302 petition her statement made out by Katt Morrow, the patient has been demonstrating increased paranoia and delusions. He is hearing voices that people are out to get him, is believing that his accounts of been hacked, is not sleeping, eating, not taking his mental health medications. She indicates he is self-medicating with marijuana and Kratom. He was acting bizarrely, asking Helens come to his apartment to witness burglaries, and to listen to illegal audiotapes. He became agitated when she told him she could not do those things. She observed knives on his person and reports that he recently purchased guns 2 weeks ago. She notes he has a history of assaultive behaviors and self injury, was stockpiling knives, machetes, guns and survival supplies. These stressors have increased in the last 45 days since the of his girlfriend by suicide, and her family is now making allegations against the patient with [facility] regarding her children. According to the patient, he says that the admission was precipitated by a fight with Katt. He absolutely believes that he has extraordinary hearing that allows him to hear conversations several apartments down the hallway. He believes that he is hearing people plotting against him and that all of his electronics have been hacked. He believes that he has seen a specific router that was placed on his Internet that allows other people to access his electronic devices and says that he has filed a complaint with the police who have come and witnessed it. He insists that "I know the difference between reality and hallucinations" and insists that his experiences are real. He admits that his primary stress is that of the of his girlfriend at the end of November. He loved her, wanted to be with her and has been grieving since. He feels guilty and responsible for her as he said "horrible things" to her during an argument at the time of her . He had gone so far as to tell her to kill herself. Her parents have also been accusing him of being the cause of her in addition to the [employer] complaints. His girlfriend had 2 children, a son in an daughter, who are in the custody of other people. These were not his children. He does not believe that his reactions and thoughts are in anyway related to grief or stress. He wants to be able to take a hearing test to demonstrate his extraordinary hearing capability so that others will believe him. He believes these other people of stolen money from his bank account, contends that money is actually missing and says that he is gone to the bank to change access to his account so that only he can withdraw money, only in person and with identification. This means, that when his rent is due on January 12, no one will be able to pay for him and he fears he will be evicted from his apartment. Today the patient is extremely distressed and tearful. He reports grieving, feeling depressed and having suicidal ideation. He admits that he injected himself with Ritalin several days ago in a suicide attempt which only succeeded in putting him to sleep. He reports that his sleep is generally disturbed since her , having both difficulty falling asleep as well as staying asleep. His appetite has been down, and he reports a 20 pound weight loss since her . His anxiety is high, experiencing panic attacks daily, usually triggered when he thinks about people watching him. He contends that he is not having hallucinations that these conversations he hears are real. He has a long history of cutting and burning himself but currently denies any open wounds. His arms are covered in tattoos. He reports that he has had some high phases of his illness that include spending behaviors, hearing voices. His last manic episode was years ago. He also admits to other odd behaviors including withdrawing his own blood, using it for art or consuming it. He laughs when I ask him about this and simply describes it as an oddity. He admits that he is feeling overwhelmed today and does not remember a lot of his history. Hospital Course (1) Schizoaffective disorder, bipolar type 3/2 - Increase Invega to 9 mg daily. Patient does not want to receive Invega Sustenna - Will continue Klonopin 1 mg daily when necessary since he is so agitated with his current exacerbation but will eventually need to be discontinued in view of substance use - Continue Lexapro 20 mg daily given that his mood is currently depressed - Continue Neurontin 1200 mg 3 times a day which is likely giving us some mood stabilization in addition to treatment for his polyneuropathy - Discontinue Ritalin 20 mg 3 times a day in view of recent suicide attempt, and psychosis. There is high Concerned that this is also likely to be abused and should be reconsidered by his outpatient psychiatrist - We'll discontinue Ambien at at bedtime also in view of substance use history - -Obtain outpatient records from Dr. Zamudio, and coordinate care with current providers - Every 15 minute checks for safety - Reality orientation - Encourage participation in group and individual counseling - Family meeting if indicated - The patient is here on a 302 commitment. Will need to continue to gather information toward the need for further inpatient treatment - FLP and FBS tomorrow for monitoring on atypicals 3/3 - continue increased dose of invega at 9mg daily - remains psychotic with severely impaired insight - fasting lipids and gluc wnl - will temp increase klonopin prn to 1mg po bid secondary to level of emotional duress duress 3/4 - start wellbutrin SR 100mg po qam for mood support. while a is acutely bereaved and we discussed limited utility of antidepressants in tx grief, his historical mood disorder does increase his risk for more severe and lasting depression. he does have a seizure hx so wellbutrin dosing will necessarily be very conservative. common risks and benefits were reviewed at length and pt verbalized understanding and agreed to retrial. - change klonopin to 0.5mg po qid prn 01/12 - the patient appeared to be presently clear of psychotic symptoms at invega 9 mg daily, and he expresses an interest in "the minimum dose that is effective." - The plan is to continue bupropion SR 100 mg daily with Lexapro 20 mg daily. - No delusional material is identified the patient's thought content , and he reports that his ability to "here" voices from distant locations has resolved. - The patient reports that he no longer has suicidal thoughts. He also tells me that he has a "safety plan" that involves his cell phone and calling "Can Help" should suicidal thoughts return. He is future oriented, and describes plans to begin volunteer work. He says that he already has a list of opportunities that he is considering. He also hopes to be able to return to school at the next semester and finishes course in [employer]. Eventually, upon finishing school, he hopes to return to his home in [place]. (2) Cannabis use disorder, moderate, dependence 3/2 - Recommend abstinence - Consider substance use treatment post discharge 01/12 - The patient reports that he felt that marijuana helped him relax when he felt anxious, but understands that he should not be using medications or drugs other than what has been prescribed to him. (3) Polyneuropathy 3/2 - Continue outpatient dosing of Neurontin - Will discontinue Zanaflex in view of history of substance abuse (4) Heart valve replaced 3/2 - INR supratherapeutic on admission. Will order daily PT/INRs and adjust dosing accordingly -Per patient, goal ranges 2.3-3.5 - Confirm with current PCP or coag clinic what his current dosing is 3/3 - INR 2.1 yesterday and received home dose of coumadin - INR 1.8 today and will receive coumadin - continue daily PT/INR 3/4 - INR 2.0 today Risk Factors Assessment Male: Yes : Yes /single/: Yes Higher / Fall in social status: No Health problems: Yes Mental Health Diagnoses: Yes Substance use disorders: Yes Previous attempt: Yes Previous attempt;highly lethal: Yes Previous psychiatric stay: Yes Hopelessness: Yes Smoker: Yes Protective Factors Assessment Evangelical beliefs: Yes : No Responsible for young children: No Employed: No Stable relationships: No Supportive family: Yes Good rapport with provider: Yes Day of Discharge Assessment [facility] OF HOSPITALIZATION: The patient has been on her unit for 5 days. He was initially admitted on a 302 involuntary commitment after having been found by his case management associate agitated, paranoid, with weapons in his home in fear for his inability to differentiate reality. It was unclear whether he was taking his medicines regularly and he was also abusing substances including cannabis and Kratom. During his stay he was restarted on most of his medications with the exception of discontinuing Ambien, and severely minimizing the use of Klonopin which is to be discontinued at time of discharge. He was counseled to stop abusing Kratom and cannabis which he was resistant to and said without that he would have to go back to using opiates. His N Plunkett was increased from 6 mg to 9 mg and he had a good response to this. At the beginning of the hospitalization he had no insight, was convinced that he had superhuman hearing and could hear people talking about him and plotting to kill him. By the end of the hospitalization he denied overt paranoia and when seen by his case management associate, she said that he was at his baseline. It was recommended that his weapons be secured elsewhere which he was resistant to as well. He denied that he would use the weapons on himself or anybody else and wanted to maintain his second amendment right around weapons. He denied any suicidal ideation. He did appear to have auditory hallucinations at the beginning of his stay but denied auditory and visual hallucinations by the end of his stay. TRANSITION OF CARE: I have reviewed all of the patient's follow-up appointments and medications and recommendations. He is counseled to take all medications as directed, not to discontinue without the approval of his outpatient psychiatrist and to attend all scheduled appointments. DAY OF DISCHARGE ASSESSMENT: Today the patient is anticipating discharge. He is somewhat irritable worried that he will find himself in difficult circumstances at home. As above, he continues to deny suicidal or homicidal ideation, denies auditory or visual hallucinations or paranoia. I repeat recommendations about abstaining from abuse of medications and he insists that he needs the or he will have to go back on Kratom or return to today he is casually and appropriately dressed and groomed. Gait and station are within normal limits. Eye contact is good. Affect is kay. Speech is of normal rate volume and tone. Thoughts are organized, goal-directed, and without overt evidence of Fioricet and and tramadol from his neurologist. Psychosis. Recent and remote memory are intact by conversation. Intelligence is estimated to be average. Insight and judgment are improved over admission. Laboratory Test 01/08/18 15:09 01/08/18 15:19 01/10/18 06:51 01/12/18 07:51 Urine Color DK YELLOW Urine Appearance CLOUDY Urine pH 6.5 Urine Specific [place] 1.021 Urine Protein NEG Urine Glucose (UA) NEG Urine Ketones TRACE Urine Occult Blood NEG Urine Nitrite NEG Urine Bilirubin NEG Urine Urobilinogen NEG Urine Leukocyte Esterase NEG Urine WBC (Auto) 1-5 Urine RBC (Auto) 0-4 Urine Hyaline Casts (Auto) 10-30 Urine Epithelial Cells (Auto) 20-30 Urine Bacteria (Auto) NEG Urine Opiates Screen NEG Urine Methadone, Qualitative NEG Urine Barbiturates NEG Urine Phencyclidine (PCP) Level NEG Ur Amphetamine/Methamphetamine NEG MDMA (Ecstasy) Screen NEG Urine Hydroxyalprazolam Confirm 269 Urine Benzodiazepines Screen POS 7-Amino Clonazepam Level 1130 Urine Nordiazepam Confirmation NEGATIVE Urine Hydroxyethylflurazepam Level NEGATIVE Urine Lorazepam (GC/MS) NEGATIVE Urine Oxazepam Confirm (GC/MS) NEGATIVE Urine Temazepam Confirmation NEGATIVE Urine Hydroxytriazolam Confirmation NEGATIVE Urine Hydroxymidazolam Confirmation NEGATIVE Urine Cocaine Metabolite NEG Urine Marijuana (THC) POS Urine Marijuana (THC Carboxy Acid) 325 White Blood Count 4.98 Red Blood Count 4.90 Hemoglobin 14.0 Hematocrit 42.0 Mean Corpuscular Volume 85.7 Mean Corpuscular Hemoglobin 28.6 Mean Corpuscular Hemoglobin Concent 33.3 Platelet Count 243 Mean Platelet Volume 9.7 Neutrophils (%) (Auto) 51.3 Lymphocytes (%) (Auto) 34.1 Monocytes (%) (Auto) 9.4 Eosinophils (%) (Auto) 4.6 Basophils (%) (Auto) 0.6 Neutrophils # (Auto) 2.55 Lymphocytes # (Auto) 1.70 Monocytes # (Auto) 0.47 Eosinophils # (Auto) 0.23 Basophils # (Auto) 0.03 RDW Standard Deviation 44.8 RDW Coefficient of Variation 14.4 Immature Granulocyte % (Auto) 0.0 Immature Granulocyte # (Auto) 0.00 Sodium Level 139 Potassium Level 3.5 Chloride Level 109 Carbon Dioxide Level 23 Anion Gap 7.0 Blood Urea Nitrogen 9 Creatinine 0.80 Estimated GFR () 128.6 Estimated GFR (Non- 111.0 BUN/Creatinine Ratio 11.8 Random Glucose 87 Calcium Level 9.5 Total Bilirubin 0.4 Direct Bilirubin 0.1 Aspartate Amino Transferase (AST) 20 Alanine Aminotransferase (ALT) 18 Alkaline Phosphatase 63 Total Protein 7.6 Albumin 3.6 Globulin 4.0 Albumin/Globulin Ratio 0.9 Thyroid Stimulating Hormone (TSH) 1.030 Ethyl Alcohol mg/dL < 3.0 Fasting Glucose 92 Triglycerides Level 86 Cholesterol Level 152 HDL Cholesterol 42 LDL Cholesterol, Calculated 93 VLDL Cholesterol, Calculated 17 Cholesterol/HDL Ratio 3.6 Prothrombin Time 22.7 Prothrombin Time INR 2.2 Test 01/13/18 07:52 Prothrombin Time 24.8 Prothrombin Time INR 2.4 Total Time Total Time Spent (min): Greater than 30 minutes Total Time Included: examination of the patient, discharge planning, medication reconciliation, communication with other providers Tobacco Cessation at Discharge Smoking Status: Current Every Day Smoker FDA approved Prescription: nicotine replacement product
--- NOTE | 2018-01-13 09:39 | Psychiatric Progress Notes ---
Psychiatric Progress Note Date of Service Jan 13, 2018. Notes I met with the patient this morning to discuss his discharge planning. He tells me that while he continues to feel sadness and guilt regarding his girlfriend's , his mood is "better than it has been in a long time," and he is having no further thoughts of suicide. There is also no evidence of any psychotic symptoms are present. He is future oriented and talks of his long- term plans. The patient is scheduled for discharge this afternoon.
[2018-01-13] MEDS ORDERED: BuPROPion SR 100 MG TABCR PO SCH (12:00)
[2018-01-13] MEDS ORDERED: ESCITALOPRAM OXALATE 20 MG TAB PO SCH (12:00)
[2018-01-13] MEDS ORDERED: PALIPERIDONE 3 MG TABCR PO SCH (12:15)
[2018-01-14] MEDS ORDERED: ESCITALOPRAM OXALATE 20 MG TAB PO SCH (09:00)
[2018-01-14] MEDS ORDERED: BuPROPion SR 100 MG TABCR PO SCH (09:00)
[2018-01-14] MEDS ORDERED: PALIPERIDONE 3 MG TABCR PO SCH (09:00)
== END 2018-01-13 13:27 | disposition home or self-care (01) | DRG 885 ==
LOC: C.EDA 14:04 → C.MHU 17:04
PROVIDERS: ADMIT Psychiatry & Neurology Child & Adolescent Psychiatry; ATTEND Psychiatry & Neurology Child & Adolescent Psychiatry
DX: F25.0 Schizoaffective disorder, bipolar type (principal); R45.851 Suicidal ideations; G62.9 Polyneuropathy, unspecified; F12.20 Cannabis dependence, uncomplicated; G43.909 Migraine, unspecified, not intractable, without status migrainosus; F17.200 Nicotine dependence, unspecified, uncomplicated; Z51.81 Encounter for therapeutic drug level monitoring; Z79.899 Other long term (current) drug therapy; Z79.01 Long term (current) use of anticoagulants; Z86.79 Personal history of other diseases of the circulatory system; Z95.2 Presence of prosthetic heart valve; Z88.6 Allergy status to analgesic agent; Z88.8 Allergy status to other drugs, medicaments and biological substances

== ENCOUNTER 2021-12-09 10:51 | Observation (INO) ==
[2021-12-09] MEDS ORDERED: SODIUM CHLORIDE 0.9% 1000ML 1,000 ML IV SCH (11:15)
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
[2021-12-09] MEDS ORDERED: SODIUM CHLORIDE 0.9% 1000ML 1,000 ML IV ONE (11:43)
[2021-12-09] MEDS ORDERED: HALOPERIDOL LACTATE 5 MG/ML 1 ML VIAL IM STA (11:43)
[2021-12-09] MEDS ORDERED: LORazepam 2 MG/ML VIAL (IM USE) IM STA (11:43)
--- NOTE | 2021-12-09 12:09 | Electrocardiogram Report ---
Test Reason : Blood Pressure : / mmHG Vent. Rate : 063 BPM Atrial Rate : 063 BPM P-R Int : 160 ms QRS Dur : 102 ms QT Int : 416 ms P-R-T Axes : 033 -46 054 degrees QTc Int : 425 ms Sinus rhythm with frequent Premature ventricular complexes Possible Left atrial enlargement Left anterior fascicular block Abnormal ECG When compared with ECG of 08-JAN-2018 15:10, Premature ventricular complexes are now Present Left anterior fascicular block is now Present Incomplete right bundle branch block is no longer Present Confirmed by Nicholas Neff ([id number]) on 12/09/2021 12:09:03 PM Referred By: Confirmed By:Nicholas Neff
[2021-12-09 12:24] LABS: Basophils # (auto) 0.05 K/uL (0-0.2); Basophils % (auto) 0.5 %; Eosinophils # (auto) 0.27 K/uL (0-0.5); Eosinophils % (auto) 2.9 %; Hematocrit (blood only) 50.1 % (42-52); Hemoglobin 16.2 g/dL (14.0-18.0); Immature Granulocytes # (auto) 0.02 K/uL (0.00-0.02); Immature Granulocytes % (auto) 0.2 %; Lymphocytes # (auto) 2.04 K/uL (1.2-3.4); Lymphocytes % (auto) 21.6 %; Mean Corpuscular Hemoglobin 29.2 pg (25-34); Mean Corpuscular Hgb Conc 32.3 g/dL (32-36); Mean Corpuscular Volume 90.3 fL (80-100); Mean Platelet Volume 9.8 fL (7.4-10.4); Monocytes # (auto) 0.67 K/uL (0.11-0.59); Monocytes % (auto) 7.1 %; Neutrophils # (auto) 6.38 K/uL (1.4-6.5); Neutrophils % (auto) 67.7 %; Platelet Count 298 K/uL (130-400); RDW Standard Deviation 50.1 fL (36.4-46.3); Red Blood Count 5.55 M/uL (4.7-6.1); White Blood Count 9.43 K/uL (4.8-10.8)
[2021-12-09 12:41] LABS: Acetaminophen < 3 ug/ml (10-30); Partial Thromboplastin Ratio 1.2; Partial Thromboplastin Time 30.5 Seconds (21.0-31.0); Prothrombin Time 9.8 Seconds (9.0-12.0); Salicylate < 3.0 mg/dl (3.0-30)
[2021-12-09 12:46] LABS: Troponin I < 0.03 ng/ml (0-0.04)
[2021-12-09 12:47] LABS: Alanine Aminotransferase 8 U/L (7-52); Albumin Globulin Ratio 1.4 (0.9-2); Albumin Level 4.6 gm/dl (3.4-5.0); Alkaline Phosphatase 70 U/L (34-104); Anion Gap 8 (3-11); Aspartate Aminotransferase 21 U/L (13-39); BUN Creatinine Ratio 10.3 (10-20); Bilirubin,Total 0.5 mg/dl (0.2-1.0); Blood Urea Nitrogen 11 mg/dl (6-23); Calcium 10.2 mg/dl (8.5-10.1); Carbon Dioxide 24 mmol/L (21-32); Chloride 108 mmol/L (98-107); Creatine Kinase 195 U/L (30-223); Creatinine Clr Calc Pharmacy 100.9 ml/min; Est GFR (African American) 96.7 ml/min; Est GFR (Non-African American) 83.4 ml/min; Globulin 3.3 gm/dl (2.5-4.0); Glucose 90 mg/dl (70-99(Fasting)); Magnesium 2.2 mg/dl (1.7-2.4); Sodium 140 mmol/L (136-145); Total Protein 7.9 gm/dl (6.0-8.3)
[2021-12-09] MEDS ORDERED: OPTIRAY 320 125ml IV ONE (13:14)
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
--- NOTE | 2021-12-09 13:45 | CT Scan Report ---
CT ANGIOGRAPHY OF THE CHEST DISSECTION PROTOCOL CLINICAL HISTORY: Left-sided chest pain. Evaluate for dissection. COMPARISON STUDY: Chest radiograph November 13, 2016. TECHNIQUE: Before and following the IV administration of 120 mL of Optiray, helical axial images of t he chest were obtained. Maximal intensity projections and sagittal and coronal reformats were viewed on an independent 3D workstation. IV contrast was administered without complication. Automated exp osure control was utilized for the study. A dose lowering technique was utilized adhering to the sharmin ncimariel of FELY. FINDINGS: Postoperative findings consistent with aortic valve replacement and repair of the ascendin g aorta are noted. Caliber of the thoracic aorta is normal. There is no intramural hematoma. Note is made of a bandlike density within the posterior aspect of the proximal ascending aorta shown on axial image 129 of 296. This is distal to the takeoff of the coronary arteries. This finding is age indete rminate. No central pulmonary emboli are present. Cardiomegaly is noted. There is no pericardial effu ariana. No pneumothorax or pleural effusion is present. Ground glass opacities within lungs favor atele ctasis. Air trapping could appear similar. There is no pneumothorax or pleural effusion. There is an acute nondisplaced fracture of the anterolateral left eighth rib. CT of the abdomen and pelvis will b e reported separately. IMPRESSION: 1. Band-like density within the posterior aspect of the proximal ascending aorta, as described above. This may be postsurgical. A short segment dissection could appear similar. This is age indeterminate although favor chronic etiology. Correlation with prior imaging studies, if available, is recommende d. If no prior studies available, short-term follow-up the CTA of the chest is recommended to ensure stability. 2. Cardiomegaly. 3. Acute nondisplaced fracture of the anterior left eighth rib. No pneumothorax. ACT 112: Negative or not required by law. Electronically signed by: Armando Echevarria M.D. 12/09/2021 1:44 PM
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
[2021-12-09 14:52] LABS: Appearance Urine Clear (Clear); Bilirubin Urine Negative (Negative); Blood Urine Negative (Negative); Color Urine Yellow; Glucose Urine UA Negative (Negative); Ketones Urine Negative (Negative); Leukocyte Esterase Urine Negative (Negative); Nitrite Urine Negative (Negative); Protein Urine Negative (Negative); Specific Gravity Urine 1.018 (1.000-1.030); Urobilinogen Urine Negative (Negative)
[2021-12-09] MEDS ORDERED: LORazepam 2 MG/ML VIAL (IM USE) IM PRN ×2 (15:31→15:48)
[2021-12-09 15:32] LABS: Amphetamines+Metham, Urine Neg (Neg); Barbiturates, Urine Neg (Neg); Benzodiazepine, Urine Neg (Neg); Cocaine, Urine Neg (Neg); MDMA (Ecstacy), Urine Neg (Neg); Methadone, Urine Neg (Neg); Opiate, Urine Neg (Neg); Phencyclidine, Urine Neg (Neg)
[2021-12-09] MEDS ORDERED: ENOXAPARIN 100 MG/1ML SYR SQ STA (15:38)
[2021-12-09] MEDS ORDERED: WARFARIN SOD 7.5 MG TAB PO STA (15:38)
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
[2021-12-09] MEDS ORDERED: LIDOCAINE 5% 1 PATCH TD ONE ×2 (16:15→16:30)
[2021-12-09] MEDS: LACTATED RINGER'S 1,000 ML IV SCH ×2 (16:23→23:55)
[2021-12-09] MEDS ORDERED: HALOPERIDOL LACTATE 5 MG/ML 1 ML VIAL IM PRN (21:11)
[2021-12-09] MEDS: NICOTINE 21 MG/24 HR TDSY TD SCH (21:19)
[2021-12-09] MEDS: WARFARIN SOD 7.5 MG TAB PO SCH (21:46)
[2021-12-09] MEDS: ACETAMINOPHEN 325 MG TAB PO PRN (21:47)
[2021-12-10] MEDS ORDERED: ENOXAPARIN 100 MG/1ML SYR SC SCH (06:00)
[2021-12-10] MEDS: ACETAMINOPHEN 325 MG TAB PO PRN (06:21)
[2021-12-10] MEDS: LACTATED RINGER'S 1,000 ML IV SCH (08:02)
[2021-12-10] MEDS: WARFARIN SOD 7.5 MG TAB PO SCH (08:03)
--- NOTE | 2021-12-10 08:53 | XCELERA ---
[id number]
[2021-12-10] MEDS ORDERED: LIDOCAINE 5% 1 PATCH TD SCH (09:00)
[2021-12-10] MEDS ORDERED: OPTIRAY 320 125ml IV ONE (09:11)
--- NOTE | 2021-12-10 09:40 | CT Scan Report ---
CT ANGIOGRAM OF THE CHEST COMBO CLINICAL HISTORY: Reassess thoracic aorta. COMPARISON STUDY: Chest CT dated 12/09/2021. CT of the cervical spine dated 04/07/2016. TECHNIQUE: Before and following the IV administration of 120 cc of Optiray 320, CT angiogram of the c hest was performed from the thoracic inlet to the upper abdomen utilizing the dissection protocol. Im ages are reviewed in the axial, sagittal, and coronal planes. 3-D MIPS images are created and assesse d. IV contrast was administered without complication. A dose lowering technique was utilized adherin g to the principles of ALARA. CT DOSE: 759.49 mGy.cm FINDINGS: Thyroid: Imaged portions of the thyroid gland are normal in size and attenuation. Thoracic aorta: No intramural hematoma is seen on the unenhanced series. Postoperative change is note d involving the aortic root/ascending thoracic aorta. The thoracic aorta is normal in caliber and dem onstrates standard 3-vessel arch anatomy. An intraluminal bandlike density is again seen within the p osterior aspect of the proximal ascending aorta, best seen on axial image #154. The arch vessels are widely patent. Pulmonary vasculature: The pulmonary trunk is normal in caliber. There are no filling defects identif ied in the main, lobar, or segmental pulmonary vessels to suggest pulmonary embolus. Heart: The patient is status post midline sternotomy and aortic valve surgery. The heart is mildly en larged and without pericardial effusion. Lungs and pleural spaces: There is no airspace consolidation or pneumothorax. Trace left pleural effu ariana is noted. The trachea and central airways are clear. Mild dependent atelectasis is seen at the l trell bases. Scattered calcified granulomas are incidentally noted. A 3 mm pulmonary nodule is seen at the left apex on image #46. This is unchanged from 2016 and of doubtful significance. Mediastinum: There is no mediastinal lymphadenopathy. Kya: Clear. Axillae: There is no axillary lymphadenopathy. Upper abdomen: Partially visualized upper abdominal viscera is within normal limits. Skeletal structures: No lytic or blastic bony lesions are seen. There is a left anterior 8th rib frac ture. IMPRESSION: 1. Again seen is postoperative change involving the aortic root/ascending thoracic aorta. There is un changed appearance of a bandlike intraluminal density of the ascending thoracic aorta. This is unchan ged from yesterday, and although postoperative change is favored a focal dissection is not excluded. Correlation with any prior outside imaging studies is recommended to assess for stability. 2. No intramural hematoma is identified on the unenhanced series. 3. There is trace pleural fluid at the left lung base. 4. An acute left anterior 8th rib fracture is again noted. 5. There is no airspace consolidation or pneumothorax. ACT 112: Negative or not required by law. Electronically signed by: Perico Rendon M.D. 12/10/2021 9:39 AM
[2021-12-10 10:06] LABS: Basophils # (auto) 0.03 K/uL (0-0.2); Basophils % (auto) 0.5 %; Eosinophils # (auto) 0.32 K/uL (0-0.5); Eosinophils % (auto) 5.1 %; Hematocrit (blood only) 46.8 % (42-52); Hemoglobin 14.9 g/dL (14.0-18.0); Immature Granulocytes # (auto) 0.01 K/uL (0.00-0.02); Immature Granulocytes % (auto) 0.2 %; Lymphocytes # (auto) 1.85 K/uL (1.2-3.4); Lymphocytes % (auto) 29.6 %; Mean Corpuscular Hemoglobin 28.9 pg (25-34); Mean Corpuscular Hgb Conc 31.8 g/dL (32-36); Mean Corpuscular Volume 90.7 fL (80-100); Mean Platelet Volume 9.5 fL (7.4-10.4); Monocytes # (auto) 0.28 K/uL (0.11-0.59); Monocytes % (auto) 4.5 %; Neutrophils # (auto) 3.76 K/uL (1.4-6.5); Neutrophils % (auto) 60.1 %; Platelet Count 249 K/uL (130-400); RDW Standard Deviation 50.4 fL (36.4-46.3); Red Blood Count 5.16 M/uL (4.7-6.1); White Blood Count 6.25 K/uL (4.8-10.8)
[2021-12-10 10:27] LABS: INR 1.2 (0.9-1.1); Prothrombin Time 12.4 Seconds (9.0-12.0)
[2021-12-10 10:31] LABS: Calcium 9.2 mg/dl (8.5-10.1); Est GFR (African American) 119.1 ml/min; Est GFR (Non-African American) 102.8 ml/min
[2021-12-10] MEDS ORDERED: LORazepam 2 MG/4 ML VIAL ONE ×2 (12:02→12:10)
[2021-12-10] MEDS ORDERED: LORazepam 1 MG TAB PO PRN (12:05)
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
[2021-12-10] MEDS: NICOTINE 21 MG/24 HR TDSY TD SCH (13:05)
--- NOTE | 2021-12-10 13:51 | Discharge Summary ---
Date of Service December 10, 2021 Admission HPI Per Admitting Provider This is a 46-year-old male with questionable history of aortic root repair, known aortic valve repair with mechanical valve on warfarin, and psychiatric history of of depression, schizoaffective disorder, polysubstance abuse, and previous suicide attempts comes in via ambulance for chest pain and an overdose. Police requesting a mental health evaluation. Reportedly, patient took 90 pills of 600 mg gabapentin in an attempt to kill himself. History was difficult to obtain due to patient's drowsiness, but per ED note, he denied fever, lower extremity swelling, or pain. At the beginning of his evaluation ED, patient was calm and open to a voluntary evaluation, however he became agitated and belligerent towards staff. He was given Haldol and Ativan for the agitation. Upon my exam, patient is drowsy, but arousable. He was able to ambulate with minimal assistance to bathroom and back to his bed. Additionally, patient is on warfarin 15 mg daily due to history of aortic valve replacement, however he reported difficulty filling multiple prescriptions lately, therefore it is unknown how long patient has been without anticoagulation. Subherapeutic with INR of 1.0 today, this should be at least 2.5. He initially complained of chest pain, abdominal CT showed rib fractures, a CTA was performed and revealed band-like density within the posterior aspect of the proximal ascending aorta, as described above. This may be postsurgical. A short segment dissection could appear similar. This is age indeterminate although favor chronic etiology. Correlation with prior imaging studies was recommended, if available. If not, a follow-up CTA of chest recommended to ensure stability. No previous studies available, so we will get a CTA in a.m. Principal Diagnosis Intentional overdose Left rib fracture Discharge Exam Constitutional WD/WN, vitals as above Psychiatric Orientation: alert Eye Contact: + fair eye contact Motor Behavior: + psychomotor agitation Speech: + loud speech Affect: + angry affect Mood: + angry mood Thought Process: linear/logical thought process Discharge Data Allergies Allergy/AdvReac Type Severity Reaction Status Date / Time propranolol AdvReac Severe Bradycardia Verified 12/09/21 15:36 NSAIDS (Non-Steroidal AdvReac Unknown CANNOT Verified 12/09/21 15:36 Anti-Inflamma TAKE WHILE ON COUMADIN Consultations 12/09/21 14:35 ED Decision to Admit Stat 12/09/21 21:11 Consult Psychiatry Routine Ordered Studies 12/09/21 11:12 CT abd pelvis IV con only Stat CT angio chest dissec wo/w con Stat CT cervical spine wo con Stat 12/09/21 11:13 CT head/brain wo con Stat 12/10/21 09:07 CT angio chest dissec wo/w con Routine Hospital Course (1) Overdose: Kirill Salmeron is a 46 year old male admitted to [facility] from December [id number] after an suspected overdose of gabapentin. He was treated with as needed haloperidol and lorazepam. On discussion with poison control and psychiatry he was deemed medically stable for discharge after 24 hours. Suspect his agitation is more secondary to LSD +/- Ritalin than gabapentin. This can be treated with lorazepam as needed, since he was discharged to a holding cell this was not been prescribed to a pharmacy. He should continue on Latuda for mood stabilization or alternative anti-psychotic if this is unable to be prescribed in holding. Recommend discontinuing duloxetine and Ritalin due to agitation. He should continue on Lovenox injections until INR therapeutic 2.5-3.5 (mechanical heart valve). Continue warfarin 15mg PO daily as previously prescribed and follow up with [facility] anticoagulation clinic for repeat INR in 1-2 days. Clinic informed of hospital admission and INR subtherapeutic level. Due to overdose recommend reducing gabapentin dosing to 600mg PO TID. He was complaining of left sided chest pain and left rib fracture seen on CT. Recommend acetaminophen as needed for this due to history of addictions and anticoagulation use. (2) Aortic valve replaced: (3) Aortic aneurysm: (4) Closed rib fracture: (5) Chronic migraine: (6) Schizoaffective disorder, bipolar type: (7) Noncompliance with medication regimen: (8) Tobacco abuse: Total Time Total Time Spent Total Time Spent (In Minutes): 35 Discharge Plan Discharge Items [facility] Disposition: [facility] Reason For Visit: INTENTIONAL OVERDOSE Discharge Diagnosis: Intentional overdose Left rib fracture Activity: Resume your previous activity Non-emergency contact: Primary Care Provider Call non-emergency contact if: you have any medication questions and your symptoms worsen Follow-up/Referrals: Chris Suarez DO [Primary Care Provider] - Diet: Regular Addtl Attending Provider Instructions: You were admitted to [facility] from December 092 after an suspected overdose of gabapentin. You were treated with as needed haloperidol and lorazepam. On discussion with poison control and psychiatry you are now medically stable for discharge. Suspect your agitation is more secondary to LSD +/- Ritalin than gabapentin. This can be treated with lorazepam as needed, since you are being discharged to a holding cell this has not been prescribed to a pharmacy. Please continue Latuda for mood stabilization or alternative anti-psychotic if this is unable to be prescribed in holding. Recommend discontinuing duloxetine and Ritalin due to agitation. Please continue on Lovenox injections until INR therapeutic 2.5-3.5. Continue warfarin 15mg PO daily as previously prescribed and follow up with [facility] anticoagulation clinic for repeat INR in 1-2 days. Due to overdose recommend reducing gabapentin dosing to 600mg PO TID. Please use acetaminophen as needed up to 3250mg PO daily for left sided chest pain due to your rib fracture. Pending Studies at Discharge: No Stand-Alone Forms: My [facility] Skilled Items Patient informed of condition?: No Discharge Level of Care: Other Communicable Disease: No Discharge Prognosis: Stable Lines: None Urinary Catheter: No Medications and DC Order Prescriptions: New lorazepam 1 mg tablet 1 mg PO Q8H PRN (Reason: anxiety) Qty: 10 RF: 0 Continued zolpidem 10 mg tablet 10 mg PO HS PRN (Reason: insomnia) Qty: 20 RF: 0 warfarin 5 mg tablet See Rx Instructions PO UD Qty: 240 RF: 5 Latuda 20 mg tablet 20 mg PO DAILY RF: 0 topiramate 100 mg tablet 100 mg PO BID RF: 0 nicotine 21 mg/24 hr Patch 24 Hour 1 patch TRANSDERMAL DAILY RF: 0 enoxaparin 100 mg/mL Syringe 100 mg SUBCUT Q12H RF: 0 Medical Marijuana 1 dose inhalation DIRECTED PRN (Reason: NEEDED) RF: 0 Changed gabapentin 600 mg tablet 600 mg PO TID 30 Days Qty: 180 RF: 2 Discontinued prochlorperazine maleate 10 mg tablet 10 mg PO BID PRN (Reason: Nausea) RF: 0 methylphenidate HCl 20 mg tablet 20 mg PO BID RF: 0 duloxetine [Cymbalta] 60 mg capsule,delayed release(DR/EC) 60 mg PO DAILY Qty: 30 RF: 0 tizanidine 4 mg tablet 4 mg PO BID PRN (Reason: muscle pain or headache) RF: 0 Discharge Orders: Discharge Order (Routine); Ordered 12/10/21 Ordered By: Andrea Chanel/Other Patient Handouts: What to Know When TakingWarfarin Admission Data Admit Date/Time: 12/09/21 15:50 Attending Provider: Andrea Solis Admit Provider: Andrea Solis Primary Care Provider: Chris Suarez Other Providers: Andrea Solis ; Peyton Yan ; Charleen Rangel ; Neisha Em ; Michael Flynn Other Interventions: Discharge Summary Assessment (RN) Last Done: 12/10/21 15:27 Coding Level of Care Code 35314 OBS Care - Discharge Diagnoses Overdose T50.902A Encounter type: initial encounter Injury intent: intentional self-harm Aortic valve replaced Z95.2 Aortic aneurysm I71.9 Closed rib fracture S22.32XA Encounter type: initial encounter Laterality: left Rib fracture type: single rib Chronic migraine G43.709 Schizoaffective disorder, bipolar type F25.0 Noncompliance with medication regimen Z91.14 Tobacco abuse Z72.0
[2021-12-10] MEDS ORDERED: TOPIRAMATE 100 MG TAB PO SCH (21:00)
[2021-12-12 08:08] LABS: Marijuana Quant, GCMS Urine 1202 ng/mL (<5)
== END 2021-12-10 15:45 | DRG 918 ==
LOC: ED 10:51 → INTOOBSV 15:50 → 2N 15:50